=== PATIENT | female | born 1950 | race Caucasian/White ===

== ENCOUNTER → 2018-02-11 10:02 | Outpatient (CLI) | payer MEDICARE, SELFPAY ==
[2018-02-11 12:06] LABS: Absolute Lymphocyte Count 1.12 X10^3/ul (0.83-4.51); Basophil# 0.02 X10^3/uL; Basophil% 0.4 % (0-1); Eosinophil# 0.26 X10^3/uL; Eosinophils% 5.4 % (0-5); Hematocrit 38.2 % (37-47); Hemoglobin 13.3 g/dl (12.0-15.0); Lymphocyte # 1.12 X10^3/ul (4.0); Lymphocyte % 23.4 % (19-41); Mean Corp Hgb Conc 34.8 g/gl (32-36); Mean Corpuscular Hgb 34.9 pg (27.0-32.0); Mean Corpuscular Volume 100.3 fL (81-99); Monocyte# 0.33 X10^3/uL; Monocyte% 6.9 % (0-10); Neutrophil # 3.04 X10^3/uL (2.7-7.7); Neutrophil % 63.7 % (47-70); Platelet Count 199 K/mm3 (150-450); RBC Distribution Width CV 12.4 % (11.6-14.6); RBC Distribution Width SD 44.1 fl (35.1-43.9); Red Blood Count 3.81 M/mm3 (4.2-5.4); White Blood Count 4.8 K/mm3 (4.4-11.0)
[2018-02-11 12:10] LABS: POSITIVE COUNT NO; POSITIVE DIFFERENTIAL NO; POSITIVE MORPHOLOGY NO
[2018-02-11 12:24] LABS: Vitamin D,25 Hydroxy 18.4 ng/mL (29.95-100.01)
[2018-02-11 12:30] LABS: ALB/GLOB Ratio 0.9 RATIO (0.9-2.4); AST(SGOT) 46 U/L (15-37); Alanine Aminotransfer ALT/SGPT 68 U/L (13-56); Albumin, Serum 3.7 g/dL (3.2-5.0); Alkaline Phosphatase 59 U/L (45-117); Anion Gap 9 (5-15); BUN 15 mg/dL (7-18); BUN/Creat Ratio 15.9 RATIO (10-20); Calcium,Total 8.5 mg/dL (8.5-10.1); Chloride 105 mmol/L (98-107); Cholesterol 173 mg/dL (200); Creatinine, Serum 0.95 mg/dL (0.55-1.02); EST Glomerular Filtration Rate 63 mL/min (>60); Est Glom Filt Rate - Afr Amer 76 mL/min (>60); Glucose 105 mg/dL (74-106); High Density Lipoprotein 38 mg/dL; Potassium 3.9 mmol/L (3.5-5.1); Protein, Total 7.7 g/dL (6.4-8.2); Sodium Level 139 mmol/L (136-145); T4 Free Direct 0.95 ng/dL (0.76-1.46); Triglycerides 195 mg/dL; Very Low Density Lipoprotein 39 mg/dL (5-40)
== END ==
PROVIDERS: Family Provider Family Medicine; PCP Family Medicine; Visit Provider Family Medicine
DX: Z00.00 Encounter for general adult medical examination without abnormal findings (principal); I10 Essential (primary) hypertension; E03.9 Hypothyroidism, unspecified; R53.83 Other fatigue
CPT/HCPCS: 36415; 80053; 80061; 82306; 84439; 84443; 84480; 85025

== ENCOUNTER → 2018-04-29 08:39 | Outpatient (CLI) | payer MEDICARE, SELFPAY ==
[2018-04-29 10:03] LABS: T3 Total - Triiodothyronine 0.95 ng/mL (0.6-1.81)
[2018-04-29 10:04] LABS: T4 Free Direct 0.95 ng/dL (0.76-1.46)
== END ==
PROVIDERS: Family Provider Family Medicine; PCP Family Medicine; Visit Provider Family Medicine
DX: E03.9 Hypothyroidism, unspecified (principal); R94.6 Abnormal results of thyroid function studies; R94.5 Abnormal results of liver function studies
CPT/HCPCS: 36415; 84439; 84443; 84480

== ENCOUNTER → 2019-05-24 10:33 | Outpatient (CLI) | payer MEDICARE, SELFPAY ==
[2018-11-16 13:05] VITALS: BMI 44.6
[2019-05-24 12:28] LABS: Absolute Lymphocyte Count 1.28 X10^3/uL (0.83-4.51); Absolute Neutrophil Count 2.8 X10^3/uL (2.0-7.7); Basophil# 0.04 X10^3/uL; Basophil% 0.8 % (0-1); Eosinophil# 0.28 X10^3/uL; Eosinophils% 5.9 % (0-5); Hematocrit 38.8 % (37-47); Lymphocyte # 1.28 X10^3/ul (4.0); Lymphocyte % 26.9 % (19-41); Mean Corp Hgb Conc 33.5 g/dL (32-36); Mean Corpuscular Hgb 34.3 pg (27.0-32.0); Mean Corpuscular Volume 102.4 fL (81-99); Mean Platelet Vol. 10.1 fl (6.2-12.0); Monocyte# 0.31 X10^3/uL; Monocyte% 6.5 % (0-10); NRBC Flagged by Analyzer 0 % (0-5); Neutrophil # 2.83 X10^3/uL (2.7-7.7); Neutrophil % 59.7 % (47-70); Platelet Count 207 K/mm3 (150-450); RBC Distribution Width CV 12.3 % (11.6-14.6); RBC Distribution Width SD 46.3 fl (35.1-43.9); Red Blood Count 3.79 M/mm3 (4.2-5.4); White Blood Count 4.8 K/mm3 (4.4-11.0)
[2019-05-24 13:05] LABS: Vitamin D,25 Hydroxy 20.5 ng/mL (29.95-100.01)
[2019-05-24 13:07] LABS: ALB/GLOB Ratio 0.9 RATIO (0.9-2.4); AST(SGOT) 50 U/L (15-37); Alanine Aminotransfer ALT/SGPT 77 U/L (13-56); Albumin, Serum 3.5 g/dL (3.2-5.0); Alkaline Phosphatase 61 U/L (45-117); Anion Gap 6 (5-15); BUN 22 mg/dL (7-18); Calcium,Total 8.6 mg/dL (8.5-10.1); Chloride 108 mmol/L (98-107); Creatinine, Serum 0.88 mg/dL (0.55-1.02); EST Glomerular Filtration Rate 68 mL/min (>60); Est Glom Filt Rate - Afr Amer 82 mL/min (>60); Free T3 2.2 pg/mL (2.18-3.98); Globulin 3.9 g/dL (2.2-4.2); Glucose 89 mg/dL (74-106); Potassium 4.1 mmol/L (3.5-5.1); Protein, Total 7.4 g/dL (6.4-8.2); Sodium Level 143 mmol/L (136-145); T4 Free Direct 0.98 ng/dL (0.76-1.46); Thyroid Stim Hormone (TSH) 3.15 uIU/mL (0.358-3.74)
== END ==
PROVIDERS: Family Provider Family Medicine; PCP Family Medicine; Visit Provider Family Medicine
DX: E03.9 Hypothyroidism, unspecified (principal); E78.5 Hyperlipidemia, unspecified; E55.9 Vitamin D deficiency, unspecified; Z51.81 Encounter for therapeutic drug level monitoring
CPT/HCPCS: 36415; 80053; 82306; 84439; 84443; 84481; 85025

== ENCOUNTER → 2019-11-22 14:09 | Outpatient (CLI) | payer MEDICARE, SELFPAY ==
[2019-11-22 13:12] VITALS: BMI 43.9
[2019-11-22 16:09] LABS: Absolute Lymphocyte Count 1.63 X10^3/uL (0.83-4.51); Absolute Neutrophil Count 3.9 X10^3/uL (2.0-7.7); Basophil# 0.05 X10^3/uL; Basophil% 0.8 % (0-1); Eosinophil# 0.18 X10^3/uL; Eosinophils% 2.9 % (0-5); Hemoglobin 13.8 g/dL (12.0-15.0); Lymphocyte # 1.63 X10^3/ul (4.0); Lymphocyte % 26.5 % (19-41); Mean Corp Hgb Conc 33.7 g/dL (32-36); Mean Corpuscular Hgb 33.7 pg (27.0-32.0); Mean Platelet Vol. 10.1 fl (6.2-12.0); Monocyte% 6.5 % (0-10); NRBC Flagged by Analyzer 0 % (0-5); Neutrophil # 3.89 X10^3/uL (2.7-7.7); Neutrophil % 63.1 % (47-70); Platelet Count 255 K/mm3 (150-450); RBC Distribution Width CV 12.4 % (11.6-14.6); RBC Distribution Width SD 46.2 fl (35.1-43.9); White Blood Count 6.2 K/mm3 (4.4-11.0)
[2019-11-22 16:40] LABS: Anion Gap 6 (5-15); BUN 15 mg/dL (7-18); BUN/Creat Ratio 15.5 RATIO (10-20); Calcium,Total 8.9 mg/dL (8.5-10.1); Chloride 103 mmol/L (98-107); Creatinine, Serum 0.97 mg/dL (0.55-1.02); EST Glomerular Filtration Rate 61 mL/min (>60); Est Glom Filt Rate - Afr Amer 73 mL/min (>60); Glucose 92 mg/dL (74-106); Magnesium 2.2 mg/dL (1.6-2.6); Potassium 4.3 mmol/L (3.5-5.1); Sodium Level 136 mmol/L (136-145)
[2019-11-24 10:13] LABS: Free T3 2.4 pg/mL (2.18-3.98); T4 Free Direct 1.12 ng/dL (0.76-1.46); Thyroid Stim Hormone (TSH) 2.47 uIU/mL (0.358-3.74)
== END ==
PROVIDERS: PCP Family Medicine; Referring Provider Internal Medicine Cardiovascular Disease; Visit Provider Internal Medicine Cardiovascular Disease
DX: I47.1 Supraventricular tachycardia (principal); I49.1 Atrial premature depolarization; I49.3 Ventricular premature depolarization; I34.1 Nonrheumatic mitral (valve) prolapse; E78.00 Pure hypercholesterolemia, unspecified; E03.9 Hypothyroidism, unspecified; Z98.890 Other specified postprocedural states
CPT/HCPCS: 36415; 80048; 83735; 84439; 84443; 84481; 85025

== ENCOUNTER → 2019-11-23 08:52 | Outpatient (CLI) | payer OTHER, MEDICARE, SELFPAY ==
[2019-11-22 13:12] VITALS: BMI 43.9
== END ==
PROVIDERS: PCP Family Medicine; Referring Provider Internal Medicine Cardiovascular Disease; Visit Provider Internal Medicine Cardiovascular Disease
DX: I47.1 Supraventricular tachycardia (principal); I49.1 Atrial premature depolarization; I49.3 Ventricular premature depolarization; I34.1 Nonrheumatic mitral (valve) prolapse; I48.91 Unspecified atrial fibrillation; E78.00 Pure hypercholesterolemia, unspecified; Z98.890 Other specified postprocedural states
CPT/HCPCS: 93225; 93226

== ENCOUNTER → 2020-03-20 07:53 | Outpatient (CLI) | payer OTHER, MEDICARE, SELFPAY ==
[2019-11-22 13:12] VITALS: BMI 43.9
--- NOTE | 2020-03-20 07:55 | ECHOCS_ITS ---
Reason For Study: AFIB Procedure This was a 2D Doppler, Color Flow transthoracic echocardiogram. The study was technically difficult. Contrast injection was performed. Exam performed portable in patient room. Left Ventricle Normal LV size. Left ventricular systolic function is normal. The estimated ejection fraction is 60 %. Unable to assess diastolic dysfunction. No regional wall motion abnormalities noted. Right Ventricle Normal RV size. Normal systolic function. Atria The left atrium is mildly enlarged. Normal right atrium. No doppler evidence for ASD. Mitral Valve There is no mitral annular calcification. Normal mitral valve. Mild (1+) mitral valve insufficiency. Tricuspid Valve Normal tricuspid valve. Mild tricuspid valve insufficiency. Right ventricular systolic pressure estimated to be 36 mmHg. Aortic Valve Trisinus/trileaflet aortic valve. Mild focal aortic valve calcification. Mild aortic stenosis. Mild (1+) aortic valve insufficiency. Pulmonic Valve The pulmonic valve is not well visualized. Trivial pulmonic valve insufficiency. Great Vessels Normal sized aortic root. Pericardium/Pleural No pericardial effusion. Medication Diluted definity 2.0ml given slow IV push to enhance endocardial definition. MMode/2D Measurements & Calculations LVIDd: 4.5 cm IVSd: 1.1 cm LVOT diam: 2.0 cm LVIDs: 3.1 cm LVPWd: 1.0 cm RVDd: 4.2 cm FS: 29.8 % LVOT area: 3.0 cm2 Ao root diam: 3.5 cm LAV(MOD-bp): 51.8 ml EDV(MOD-sp4): 142.9 ml LAV(MOD-bp) Indexed: 22.6 ml/m2 ESV(MOD-sp4): 52.7 ml LAV(MOD-sp2): 46.6 ml EF(MOD-sp4): 63.1 % LAV(MOD-sp4): 55.5 ml EDV(MOD-sp2): 126.0 ml SV(MOD-sp4): 90.2 ml SV(MOD-sp2): 57.9 ml EF(MOD-sp2): 45.9 % LA dimension(2D): 4.6 cm LA A4 area: 19.2 cm2 RA A4 area: 12.2 cm2 Time Measurements MV dec time: 0.23 sec Doppler Measurements & Calculations MV E max annabella: 136.4 cm/sec Ao V2 max: 211.9 cm/sec AI max annabella: 367.2 cm/sec Ao max P.0 mmHg AI max P.9 mmHg Ao V2 mean: 155.6 cm/sec AI dec slope: 178.0 cm/sec2 Ao mean P.5 mmHg AI P1/2t: 604.3 msec Ao V2 VTI: 46.7 cm GENNARO(I,D): 1.5 cm2 GENNARO(V,D): 1.4 cm2 LV V1 max: 100.6 cm/sec SV(LVOT): 69.2 ml PA V2 max: 106.7 cm/sec LV V1 max P.1 mmHg LV V1 mean P.4 mmHg LV V1 mean: 73.6 cm/sec LV V1 VTI: 23.0 cm TR max annabella: 286.9 cm/sec TR max P.0 mmHg Interpretation Summary The study was technically difficult. Contrast injection was performed. Left ventricular systolic function is normal. The estimated ejection fraction is 60 %. The left atrium is mildly enlarged. Mild (1+) mitral valve insufficiency. Mild tricuspid valve insufficiency. Mild aortic stenosis. Mild (1+) aortic valve insufficiency. Trivial pulmonic valve insufficiency. Right ventricular systolic pressure estimated to be 36 mmHg. Unable to assess diastolic dysfunction. Ordering Physician: Mack Garcia Referring Physician: DR ULYSSES JAMESON Performed By: Radha Holguin, LITTLECS, RVT
== END ==
PROVIDERS: PCP Family Medicine; Referring Provider Internal Medicine Cardiovascular Disease; Visit Provider Internal Medicine Cardiovascular Disease
DX: I48.91 Unspecified atrial fibrillation (principal); I48.92 Unspecified atrial flutter; I47.1 Supraventricular tachycardia; I49.1 Atrial premature depolarization; I49.3 Ventricular premature depolarization; I34.1 Nonrheumatic mitral (valve) prolapse; E78.00 Pure hypercholesterolemia, unspecified; Z98.890 Other specified postprocedural states
CPT/HCPCS: 93306; Q9957; A4216; C8929

== ENCOUNTER 2020-05-30 10:40 | Day surgery (SDC) | payer MEDICARE, SELFPAY ==
--- NOTE | 2020-05-16 01:54 | HP_ITS ---
HPI HPI History of Present Illness Surgical H&P: Yes Details: DAE LORD, is a 69 year old white female who presents to the office today for outpatient cardiovascular follow up of her history of cardiac ectopy/dysrhythmia status post previous PSVT EPS/RFA. Pts 30 day event monitor did demonstrate Atrial fib. She did have some pauses noted. They were all less than 4 seconds. She does note since she was her last that she feels more tired. She does have an increase in dizziness, she notes that this is when she stands for long periods of times and with positional changes. This does occur frequently and is only a few seconds. She does not have any chest pain. She does have an increase in SOB with exertion. She does not feel that she can walk as far as what she did. But then other days are good. She does not have any edema. She does not have any syncope. She does occasionally feel palpitations. Intake Vital Signs 05/16/20 Height 5 ft 6 in 05/16/20 Weight: 271 lb 05/16/20 BP 104/67 05/16/20 Blood Pressure Location Lt brachial 05/16/20 Position Sitting 05/16/20 Respiration 18 05/16/20 Pulse 80 05/16/20 Pulse Source Monitor 05/16/20 Pulse Oximetry (%) 95 Intake Visit Reasons: Update H & P Windows Security Analyst Required: No Is patient in pain?: No Allergies Penicillins Allergy (Verified 05/16/20 09:08) Unknown cephalexin [From Keflex] Adverse Reaction (Severe, Verified 05/16/20 09:08) Unknown clarithromycin [From Biaxin] Adverse Reaction (Severe, Verified 05/16/20 09:08) Unknown erythromycin base Adverse Reaction (Severe, Verified 05/16/20 09:08) Unknown pravastatin [From Pravachol] Adverse Reaction (Severe, Verified 05/16/20 09:08) Unknown simvastatin Adverse Reaction (Severe, Verified 05/16/20 09:08) Unknown Anesthetics - Amide Type Adverse Reaction (Verified 05/16/20 09:08) Other Anesthetics - Faby Type- Parabens [Anesthetics - Faby Type] Adverse Reaction (Verified 05/16/20 09:08) Other codeine Adverse Reaction (Verified 05/16/20 09:08) Nausea/Vom/Diarrhea morphine Adverse Reaction (Verified 05/16/20 09:08) Nausea/Vom/Diarrhea Medications estradiol 0.1 mg/24 hr semiweekly transdermal patch 1 patch TRANSDERMAL 2XW 11/13/17 [History Confirmed 05/16/20] rosuvastatin 5 mg tablet 5 mg PO QDAY tab 11/17/17 [History Confirmed 05/16/20] levothyroxine 137 mcg tablet 137 mcg PO DAILY 11/16/18 [History Confirmed 05/16/20] apixaban 5 mg tablet 5 mg PO BID #60 tab 11/26/19 [Rx Confirmed 05/16/20] fluoxetine 40 mg capsule 40 mg PO DAILY 04/12/20 [History Confirmed 05/16/20] metoprolol succinate 25 mg tablet,extended release 24 hr 12.5 mg PO DAILY #90 tab 04/27/20 [Rx Confirmed 05/16/20] estradiol 0.1 mg/24 hr semiweekly transdermal patch 1 patch TRANSDERMAL 2XW 05/16/20 [History Confirmed 05/16/20] PFSH Social History (Updated 05/16/20 @ 13:54 by PA. COLEMAN Jennings) Smoking Status: Former smoker alcohol intake: never substance use type: does not use ROS Const Const: Positive for fatigue; negative for weakness, fever(s) or headache(s) Eyes Eyes: Negative for blind spots, loss of peripheral vision or transient loss of vision ENT ENT: Negative for headache(s), dizziness, tinnitus or Nosebleed/epistaxis Cardio Chest Pain: No Palpitations: Yes Edema: None Muscle aches with walking: None Resp Respiratory: Positive for SOB with activity; negative for SOB at rest, SOB orthopnea\SOB lying down or Cough GI GI: Negative nausea, vomiting, heartburn or vomiting blood/hematemesis : Negative for hematuria Musc Musc: Negative for muscle aches/ myalgia Neuro Neuro: Negative for dizziness, lightheadedness, near syncope, syncope, orthostatic symptoms, headache(s) or weakness Manas Hematologic/Lymphatic: Negative for easy bleeding Endo Endo: Positive for fatigue Cardiology Exam Const Appearance: cooperative, comfortable, no acute distress and well developed Nutritional Appearance: obese Orientation: alert, awake and oriented x3 Head Head: normal to inspection, normocephalic and atraumatic Ears: hearing grossly normal bilaterally Nose: external nose normal Face and Sinus: face symmetric Mouth: moist mucous membranes Teeth and gingiva: fair dentition Eyes Eyelids: eyelids normal Conjunctivae: conjunctivae normal Pupils: PERRL EOM: EOM intact bilaterally Neck Neck: normal visual inspection, full ROM and no JVD Carotids: normal carotid upstroke; negative bruit Neck Mass: Negative Neck mass Chest Chest inspection: normal inspection of the chest, symmetric chest movement and normal respiratory effort Auscultation: Bilateral: Clear to Auscultation Cardio Palpation: normal PMI Rate: regular rate Rhythm: irregular rhythm Heart sounds: S1 normal, S2 normal and positive S4; negative rub, gallop or murmur GI GI: obese Neuro General: alert, awake, oriented x3 and moves all extremities Skin Skin: no rashes or lesions noted Extremities Pulses: Normal: Right Posterior Tibial Pulse, Left Posterior Tibial Pulse, Right Radial Pulse, Left Radial Pulse Lower Extremity Edema: None: Bilateral Psych Psychological: normal affect Assessment & Plan Problems 1. Persistent atrial fibrillation I48.19 2. PSVT (paroxysmal supraventricular tachycardia) I47.1 s/p RFA Plan Do feel that patient is symptomatic with her atrial fibrillation. I am concerned about her lightheaded and dizziness. She did have pauses noted on her 30-day event monitor. Did discuss with her that in the future she may require a pacemaker. For now we will proceed with a cardioversion that is scheduled for May [address] Garcia. Instructions were given to her. She is agreeable to proceed with this. If she returns to atrial fibrillation will then continue consider an antiarrhythmic. Patient Instructions Your cardioversion is scheduled for 05/30 with an arrival time of 1100 and procedure time of 1230. 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 Nothing to eat or drink after midnight. Take eliquis, levothyroxine and metoprolol. Orders Orders: 12 Lead EKG performed by [facility]MS Today I48.0 Basic Metabolic Profile (BMP) Today I48.19 Chest PA and Lateral Today I48.19 Plan Detail Follow Up 3 Months (MMM) 05/16/20 (will need EKG 1 week after cardioversion on 05/30) Coding Level of Care Code Off vis,est,level 4 Diagnoses Persistent atrial fibrillation I48.19 PSVT (paroxysmal supraventricular tachycardia) I47.1 Coding Level of Care Code Off vis,est,level 4 Diagnoses Persistent atrial fibrillation I48.19 PSVT (paroxysmal supraventricular tachycardia) I47.1 Supplemental Info Supplemental Information Transthoracic echocardiogram: 03/2020 Left ventricular systolic function is normal. The estimated ejection fraction is 60 %. The left atrium is mildly enlarged. Mild (1+) mitral valve insufficiency. Mild tricuspid valve insufficiency. Mild aortic stenosis. Mild (1+) aortic valve insufficiency. Trivial pulmonic valve insufficiency. Right ventricular systolic pressure estimated to be 36 mmHg. Unable to assess diastolic dysfunction. EXERCISE TOLERANCE TEST: 06/14/14 The patient exercised on a Remington protocol for 4 minutes 30 seconds completing stage 1 and 1 minute and 30 seconds of stage 2 achieving a peak heart rate of 137 beats per minute (87% predicted maximum heart rate) with a peak blood pressure of 174/78 mmHg. The peak MET capacity was approximately 6 METS. The baseline ECG demonstrated normal sinus rhythm. The peak exercise ECG demonstrated no obvious ECG changes. There was an occasional PAC during recovery. There was an occasional PVC during exercise. There was an isolated ventricular couplet during exercise. The functional capacity was considered decreased. There was no complaint of chest discomfort during exercise or recovery. The examination was discontinued secondary to dyspnea. IMPRESSION: 1. Technically adequate (percent predicted maximum heart rate greater than 85%) exercise tolerance test. 2. Peak exercise ECG with no obvious ECG changes. 3. Occasional PAC during recovery. 4. Occasional PVC during exercise. 5. Isolated ventricular couplet during exercise. 6. Nuclear images pending. MYOCARDIAL PERFUSION IMAGING STUDY: TECHNIQUE: The patient was injected with 14.9 mCi of Tc99m Cardiolite and subsequently rest SPECT Cardiolite nuclear imaging was obtained in the horizontal long, vertical long, and short axes views. The patient exercised on a Remington protocol for 4 minutes and 30 seconds achieving a peak heart rate of 137 beats per minute (87% predicted maximum heart rate) and a peak blood pressure of 174/78 mmHg and a peak MET capacity of 6 METS. The patient was injected with 44.7 mCi of Tc99m Cardiolite and subsequently stress SPECT Cardiolite nuclear imaging was obtained in the horizontal long, vertical long, and short axes views. A gated Cardiolite study at peak stress was obtained. INTERPRETATION: Rest and stress SPECT Cardiolite nuclear imaging both demonstrate areas of extracardiac/hepatic and gastrointestinal tracer uptake noted near the inferior segments. This appears to feature more prominently on the resting views as opposed to the stress views. Both images demonstrate an area of diminished tracer uptake near the lateral apical segments without significant change. There are similar type findings on the resting and stress polar map images. There is notation of end systolic thickening and brightening. The gated Cardiolite study demonstrates myocardial thickening and inward wall motion. The reported LVEF was 77%. The aforementioned changes appear compatible with the effects of physiologic apical thinning with no myocardial perfusion changes considered diagnostic for stress induced myocardial ischemia or previous myocardial injury/infarction. IMPRESSION: 1. Rest and stress SPECT Cardiolite nuclear imaging demonstrate myocardial perfusion changes appearing compatible with the effects of physiologic apical thinning with no myocardial perfusion changes considered diagnostic for stress induced myocardial ischemia or previous myocardial injury/infarction. 2. The gated Cardiolite study reports an LVEF of 77%. Labs LDL Cholesterol 96 mg/dL (0-130) 02/11/18 HDL Cholesterol 38 mg/dL (40-) L 02/11/18 Triglycerides 195 mg/dL (-199) 02/11/18 VLDL Cholesterol 39 mg/dL (5-40) 02/11/18 Diagnostics Electrocardiogram 05/16/20 Echocardiogram 03/20/20 Chest X-Ray 05/16/20 COVID (Procedure Consent) Procedure Criteria Procedure Criteria: Yes Elective The surgeon/proceduralist and patient have discussed in detail the risk of exposure to and/or potential harm posed by the COVID-19 virus with having a surgery/procedure at this time versus the risk of? delaying the surgery/procedure. It is not possible to know either the risk of delaying the surgery or procedure or chance of getting an infection with perfect accuracy, but a joint decision was made between the patient and the surgeon/proceduralist ?to proceed at this time with the scheduled surgery/procedure as indicated on the consent form. 05/16/20 1354 <Electronically signed by Gladys Marroquin> Date _ Gladys CEE
[2020-05-16 09:08] VITALS: BMI 43.7
--- NOTE | 2020-05-16 10:09 | RAD_ITS ---
STUDY: X-RAY CHEST REASON FOR EXAM: Female, 69 years old. afib, pre cardioversion next week -- some SOB TECHNIQUE: Frontal and lateral views COMPARISON: 06/01/2014. FINDINGS: The lungs are clear and expanded. There is no demonstrated pleural abnormality. Normal size heart. Normal mediastinum and alma. Normal visualized pulmonary arteries. Normal visualized aortic arch and descending thoracic aorta. Degenerative changes of the thoracic spine. Normal visualized ribs, clavicles, and shoulders. There is no demonstrated abnormality of the visualized soft tissue structures of the upper abdomen. RAD/Chest PA and Lateral IMPRESSION: Normal x-ray examination of the chest. Electronically Signed: Steve Llanes DO at 17:42 EDT Tel [phone], Service support ,
[2020-05-16 11:24] LABS: Anion Gap 4 (5-15); BUN 16 mg/dL (7-18); BUN/Creat Ratio 14.8 RATIO (10-20); Chloride 103 mmol/L (98-107); Creatinine, Serum 1.08 mg/dL (0.55-1.02); EST Glomerular Filtration Rate 53 mL/min (>60); Est Glom Filt Rate - Afr Amer 65 mL/min (>60); Glucose 94 mg/dL (74-106); Sodium Level 135 mmol/L (136-145)
[2020-05-29 07:17] VITALS: BMI 43.7
--- NOTE | 2020-05-30 08:28 | HP.PCM_ITS ---
Problem List (1) Atrial fibrillation Status: Acute History and Physical Date of Admission: 05/30/20 [facility] [address] [place], [place] [address] OFFICE VISIT Date of Service: 05/16/20 MR#: [id number] Acct: [id number] Name: DAE LORD Rep #: [id number] : 1950 Provider: COLEMAN Gale Age/Sex: 69/F Location: [facility] Status: Signed with Addenda ADDENDUM by COLEMAN Gale on 05/17/20 at 1646 Addendum entered and electronically signed by COLEMAN Jennings 05/17/20 16:46: Reviewed with Dr. Garcia. Will stop metoprolol. Pt notified. She will let us know if her dizziness worsens prior to her cardiov ersion. Assessment & Plan Problems 1. Persistent atrial fibrillation I48.19 2. PSVT (paroxysmal supraventricular tachycardia) I47.1 s/p RFA Plan - COLEMAN. COLEMAN Jennings Do feel that patient is symptomatic with her atrial fibrillation. I am concerned about her lightheaded and dizziness. She did have pauses noted on her 30-day event monitor. Did discuss with her that in the future she may require a pacemaker. For now we will proceed with a cardioversion that is scheduled for May [address] Garcia. Instructions were given to her. She is agreeable to proceed with this. If she returns to atrial fibrillation will then continue consider an antiarrhythmic. Patient Instructions - COLEMAN. COLEMAN Jennings Your cardioversion is scheduled for 05/30 with an arrival time of 1100 and procedure time of 1230. You will need a lease purchase driver this day. Nothing to eat or drink after midnight. Take eliquis, levothyroxine and metoprolol. Orders Orders: 12 Lead EKG performed by [facility] 05/16/20 I48.0 Basic Metabolic Profile (BMP) 05/16/20 I48.19 Chest PA and Lateral 05/16/20 I48.19 Medications Discontinued: metoprolol succinate ER Discontinued Reason: Order Completed 12.5 mg (1/2 x 25 mg) PO DAILY 90 tabs 3RF Plan Detail Follow Up 3 Months (MMM) 05/16/20 (will need EKG 1 week after cardioversion on 05/30) 05/17/20 1646 <Electronically signed by Gladys Marroquin> Date _ Gladys Gale cc: Dr. Barbara Shook, DO ~* Signed HPI HPI History of Present Illness Surgical H&P: Yes Details: DAE LORD, is a 69 year old white female who presents to the office today for outpatient cardiovascular follow up of her history of cardiac ectopy/dysrhythmia status post previous PSVT EPS/RFA. Pts 30 day event monitor did demonstrate Atrial fib. She did have some pauses noted. They were all less than 4 seconds. She does note since she was her last that she feels more tired. She does have an increase in dizziness, she notes that this is when she stands for long periods of times and with positional changes. This does occur frequently and is only a few seconds. She does not have any chest pain. She does have an increase in SOB with exertion. She does not feel that she can walk as far as what she did. But then other days are good. She does not have any edema. She does not have any syncope. She does occasionally feel palpitations. Intake Vital Signs 05/16/20 Height 5 ft 6 in 05/16/20 Weight: 271 lb 05/16/20 BP 104/67 05/16/20 Blood Pressure Location Lt brachial 05/16/20 Position Sitting 05/16/20 Respiration 18 05/16/20 Pulse 80 05/16/20 Pulse Source Monitor 05/16/20 Pulse Oximetry (%) 95 Intake Visit Reasons: Update H & P Membership Sales Manager Required: No Is patient in pain?: No Allergies Penicillins Allergy (Verified 05/16/20 09:08) Unknown cephalexin [From Keflex] Adverse Reaction (Severe, Verified 05/16/20 09:08) Unknown clarithromycin [From Biaxin] Adverse Reaction (Severe, Verified 05/16/20 09:08) Unknown erythromycin base Adverse Reaction (Severe, Verified 05/16/20 09:08) Unknown pravastatin [From Pravachol] Adverse Reaction (Severe, Verified 05/16/20 09:08) Unknown simvastatin Adverse Reaction (Severe, Verified 05/16/20 09:08) Unknown Anesthetics - Amide Type Adverse Reaction (Verified 05/16/20 09:08) Other Anesthetics - Faby Type- Parabens [Anesthetics - Faby Type] Adverse Reaction (Verified 05/16/20 09:08) Other codeine Adverse Reaction (Verified 05/16/20 09:08) Nausea/Vom/Diarrhea morphine Adverse Reaction (Verified 05/16/20 09:08) Nausea/Vom/Diarrhea Medications estradiol 0.1 mg/24 hr semiweekly transdermal patch 1 patch TRANSDERMAL 2XW 11/13/17 [History Confirmed 05/16/20] rosuvastatin 5 mg tablet 5 mg PO QDAY tab 11/17/17 [History Confirmed 05/16/20] levothyroxine 137 mcg tablet 137 mcg PO DAILY 11/16/18 [History Confirmed 05/16/20] apixaban 5 mg tablet 5 mg PO BID #60 tab 11/26/19 [Rx Confirmed 05/16/20] fluoxetine 40 mg capsule 40 mg PO DAILY 04/12/20 [History Confirmed 05/16/20] metoprolol succinate 25 mg tablet,extended release 24 hr 12.5 mg PO DAILY #90 tab 04/27/20 [Rx Confirmed 05/16/20] estradiol 0.1 mg/24 hr semiweekly transdermal patch 1 patch TRANSDERMAL 2XW 05/16/20 [History Confirmed 05/16/20] PFSH Social History (Updated 05/16/20 @ 13:54 by COLEMAN Estrada) Smoking Status: Former smoker alcohol intake: never substance use type: does not use ROS Const Const: Positive for fatigue; negative for weakness, fever(s) or headache(s) Eyes Eyes: Negative for blind spots, loss of peripheral vision or transient loss of vision ENT ENT: Negative for headache(s), dizziness, tinnitus or Nosebleed/epistaxis Cardio Chest Pain: No Palpitations: Yes Edema: None Muscle aches with walking: None Resp Respiratory: Positive for SOB with activity; negative for SOB at rest, SOB orthopnea\SOB lying down or Cough GI GI: Negative nausea, vomiting, heartburn or vomiting blood/hematemesis : Negative for hematuria Musc Musc: Negative for muscle aches/ myalgia Neuro Neuro: Negative for dizziness, lightheadedness, near syncope, syncope, orthostatic symptoms, headache(s) or weakness Manas Hematologic/Lymphatic: Negative for easy bleeding Endo Endo: Positive for fatigue Cardiology Exam Const Appearance: cooperative, comfortable, no acute distress and well developed Nutritional Appearance: obese Orientation: alert, awake and oriented x3 Head Head: normal to inspection, normocephalic and atraumatic Ears: hearing grossly normal bilaterally Nose: external nose normal Face and Sinus: face symmetric Mouth: moist mucous membranes Teeth and gingiva: fair dentition Eyes Eyelids: eyelids normal Conjunctivae: conjunctivae normal Pupils: PERRL EOM: EOM intact bilaterally Neck Neck: normal visual inspection, full ROM and no JVD Carotids: normal carotid upstroke; negative bruit Neck Mass: Negative Neck mass Chest Chest inspection: normal inspection of the chest, symmetric chest movement and normal respiratory effort Auscultation: Bilateral: Clear to Auscultation Cardio Palpation: normal PMI Rate: regular rate Rhythm: irregular rhythm Heart sounds: S1 normal, S2 normal and positive S4; negative rub, gallop or murmur GI GI: obese Neuro General: alert, awake, oriented x3 and moves all extremities Skin Skin: no rashes or lesions noted Extremities Pulses: Normal: Right Posterior Tibial Pulse, Left Posterior Tibial Pulse, Right Radial Pulse, Left Radial Pulse Lower Extremity Edema: None: Bilateral Psych Psychological: normal affect Assessment & Plan Problems 1. Persistent atrial fibrillation I48.19 2. PSVT (paroxysmal supraventricular tachycardia) I47.1 s/p RFA Plan Do feel that patient is symptomatic with her atrial fibrillation. I am concerned about her lightheaded and dizziness. She did have pauses noted on her 30-day event monitor. Did discuss with her that in the future she may require a pacemaker. For now we will proceed with a cardioversion that is scheduled for May [address] Garcia. Instructions were given to her. She is agreeable to proceed with this. If she returns to atrial fibrillation will then continue consider an antiarrhythmic. Patient Instructions Your cardioversion is scheduled for 05/30 with an arrival time of 1100 and procedure time of 1230. You will need a lease purchase driver this day. Nothing to eat or drink after midnight. Take eliquis, levothyroxine and metoprolol. Orders Orders: 12 Lead EKG performed by [facility] Today I48.0 Basic Metabolic Profile (BMP) Today I48.19 Chest PA and Lateral Today I48.19 Plan Detail Follow Up 3 Months (MMM) 05/16/20 (will need EKG 1 week after cardioversion on 05/30) Coding Level of Care Code Off vis,est,level 4 Diagnoses Persistent atrial fibrillation I48.19 PSVT (paroxysmal supraventricular tachycardia) I47.1 Coding Level of Care Code Off vis,est,level 4 Diagnoses Persistent atrial fibrillation I48.19 PSVT (paroxysmal supraventricular tachycardia) I47.1 Supplemental Info Supplemental Information Transthoracic echocardiogram: 03/2020 Left ventricular systolic function is normal. The estimated ejection fraction is 60 %. The left atrium is mildly enlarged. Mild (1+) mitral valve insufficiency. Mild tricuspid valve insufficiency. Mild aortic stenosis. Mild (1+) aortic valve insufficiency. Trivial pulmonic valve insufficiency. Right ventricular systolic pressure estimated to be 36 mmHg. Unable to assess diastolic dysfunction. EXERCISE TOLERANCE TEST: 06/14/14 The patient exercised on a Remington protocol for 4 minutes 30 seconds completing stage 1 and 1 minute and 30 seconds of stage 2 achieving a peak heart rate of 137 beats per minute (87% predicted maximum heart rate) with a peak blood pressure of 174/78 mmHg. The peak MET capacity was approximately 6 METS. The baseline ECG demonstrated normal sinus rhythm. The peak exercise ECG demonstrated no obvious ECG changes. There was an occasional PAC during recovery. There was an occasional PVC during exercise. There was an isolated ventricular couplet during exercise. The functional capacity was considered decreased. There was no complaint of chest discomfort during exercise or recovery. The examination was discontinued secondary to dyspnea. IMPRESSION: 1. Technically adequate (percent predicted maximum heart rate greater than 85%) exercise tolerance test. 2. Peak exercise ECG with no obvious ECG changes. 3. Occasional PAC during recovery. 4. Occasional PVC during exercise. 5. Isolated ventricular couplet during exercise. 6. Nuclear images pending. MYOCARDIAL PERFUSION IMAGING STUDY: TECHNIQUE: The patient was injected with 14.9 mCi of Tc99m Cardiolite and subsequently rest SPECT Cardiolite nuclear imaging was obtained in the horizontal long, vertical long, and short axes views. The patient exercised on a Remington protocol for 4 minutes and 30 seconds achieving a peak heart rate of 137 beats per minute (87% predicted maximum heart rate) and a peak blood pressure of 174/78 mmHg and a peak MET capacity of 6 METS. The patient was injected with 44.7 mCi of Tc99m Cardiolite and subsequently stress SPECT Cardiolite nuclear imaging was obtained in the horizontal long, vertical long, and short axes views. A gated Cardiolite study at peak stress was obtained. INTERPRETATION: Rest and stress SPECT Cardiolite nuclear imaging both demonstrate areas of extracardiac/hepatic and gastrointestinal tracer uptake noted near the inferior segments. This appears to feature more prominently on the resting views as opposed to the stress views. Both images demonstrate an area of diminished tracer uptake near the lateral apical segments without significant change. There are similar type findings on the resting and stress polar map images. There is notation of end systolic thickening and brightening. The gated Cardiolite study demonstrates myocardial thickening and inward wall motion. The reported LVEF was 77%. The aforementioned changes appear compatible with the effects of physiologic apical thinning with no myocardial perfusion changes considered diagnostic for stress induced myocardial ischemia or previous myocardial injury/infarction. IMPRESSION: 1. Rest and stress SPECT Cardiolite nuclear imaging demonstrate myocardial perfusion changes appearing compatible with the effects of physiologic apical thinning with no myocardial perfusion changes considered diagnostic for stress induced myocardial ischemia or previous myocardial injury/infarction. 2. The gated Cardiolite study reports an LVEF of 77%. Labs LDL Cholesterol 96 mg/dL (0-130) 02/11/18 HDL Cholesterol 38 mg/dL (40-) L 02/11/18 Triglycerides 195 mg/dL (-199) 02/11/18 VLDL Cholesterol 39 mg/dL (5-40) 02/11/18 Diagnostics Electrocardiogram 05/16/20 Echocardiogram 03/20/20 Chest X-Ray 05/16/20 COVID (Procedure Consent) Procedure Criteria Procedure Criteria: Yes Elective The surgeon/proceduralist and patient have dis cussed in detail the risk of exposure to and/or potential harm posed by the COVID-19 virus with having a surgery/procedure at this time versus the risk of? delaying the surgery/procedure. It is not possible to know either the risk of delaying the surgery or procedure or chance of getting an infection with perfect accuracy, but a joint decision was made between the patient and the surgeon/proceduralist ?to proceed at this time with the scheduled surgery/procedure as indicated on the consent form. 05/16/20 5554 <Electronically signed by Gladys Marroquin> Date _ Gladys Sherman Signature: Date (if applicable) CC: Dr. Barbara Shook, DO ~ Addendum: I have re-examined the patient. There are no clinical changes since date of exam.
--- NOTE | 2020-05-30 12:31 | CARDIOVERS ---
Cardioversion Cardioversion: Date: 05-30-2020 Procedure: Synchronized Biphasic DC Cardioversion Indications: Atrial fibrillation Consent: Per the Patient Anesthesia: per Dr. Thompson of pulmonology and critical care medicine with propofol 80 mg IV push total Procedure: Synchronized Biphasic DC Cardioversion: 200 J x1: Result: Atrial fibrillation Synchronized Biphasic DC cardioversion: 300 J x1: Result: Atrial fibrillation Synchronized Biphasic DC cardioversion: 360 J x1: Result: Atrial fibrillation Complications: no apparent complications This note was generated with [employer] software. It may contain incorrect words, spelling, and punctuation that were not noted in checking the note before signing.
--- NOTE | 2020-05-30 14:06 | PRO.PCM_ITS ---
Problem List (1) Atrial fibrillation Status: Acute (2) Ectopic atrial tachycardia Status: Acute (3) Paroxysmal atrial fibrillation Status: Chronic (4) Pure hypercholesterolemia Status: Chronic (5) History of cardiac radiofrequency ablation Status: Resolved Comment: For SVT (6) PSVT (paroxysmal supraventricular tachycardia) Status: Resolved Comment: s/p RFA Procedure Report Date of Procedure: 05/30/20 - Conscious sedation CONSCIOUS SEDATION REPORT BRIEF HISTORY OF PRESENT ILLNESS: The patient is a 69-year-old female who presented to [facility] for an elective outpatient cardioversion due to underlying atrial fibrillation. The patient reports no PO intake since midnight. The patient does not have a history of obstructive sleep apnea. The patient reports a history of smoking, but denies COPD. The patient denies any recent constitutional symptoms such as fevers, chills, nausea or vomiting. The patient denies previous anesthetic complications. Patient's last known ejection fraction was 60%. Patient did take anticoagulation on the day of procedure. PHYSICAL EXAMINATION: VITAL SIGNS: Reviewed and were acceptable. GENERAL: The patient is a female, in no apparent distress, speaking in full sentences. HEENT: Normocephalic, atraumatic. Mucous membranes are moist and pink. Good mouth opening noted. Trachea is midline. Good neck mobility. MP IV CHEST: S1, S2 irregularly irregular. No murmurs, rubs or gallops were noted. LUNGS: Clear to auscultation bilaterally without appreciable wheezes, rales or rhonchi. ABDOMEN: Soft, nontender, nondistended. Positive bowel sounds. EXTREMITIES: There is no clubbing, cyanosis or edema. ASA Class: II DESCRIPTION OF PROCEDURE: After confirmation of informed consent, the patient's anesthesia plan was reviewed in detail. Propofol was chosen. Risks and benefits were reviewed and the patient agreed to proceed. At 12:06 PM, the patient was given 40 mg of propofol. The patient required a total of 80 mg of propofol throughout the procedure to achieve appropriate sedation. The patient achieved an appropriate level of sedation and received 3 attempts synchronized cardioversion, at 200 J, 300 J and [address] Garcia at the bedside. This was unsuccessful in achieving normal sinus rhythm. The patient was monitored until 12:20 PM, at which time the patient reached their baseline mental status and function. The patient tolerated the procedure well. COMPLICATIONS: None ESTIMATED BLOOD LOSS: None RECOMMENDATIONS: Okay to recover in usual fashion. [id number]: Other Procedure See Report - [id number] - 14 minutes
== END 2020-05-30 13:10 | disposition home or self-care (01) ==
LOC: CLSP 10:43
PROVIDERS: Physician Assistant Medical; PCP Family Medicine; Referring Provider Internal Medicine Cardiovascular Disease; Visit Provider Internal Medicine Cardiovascular Disease
DX: I48.19 Other persistent atrial fibrillation (principal); I47.1 Supraventricular tachycardia; E78.00 Pure hypercholesterolemia, unspecified; Z79.01 Long term (current) use of anticoagulants; Z79.899 Other long term (current) drug therapy; Z87.891 Personal history of nicotine dependence
CPT/HCPCS: 36415; 71046; 80048; 92960; 93005; J7040

== ENCOUNTER → 2020-10-05 07:49 | Outpatient (CLI) | payer MEDICARE, SELFPAY ==
[2020-09-27 14:00] VITALS: BMI 43.0
--- NOTE | 2020-10-05 07:50 | ECHOCS_ITS ---
Reason For Study: AFIB Procedure This was a 2D Doppler, Color Flow transthoracic echocardiogram. The study was technically difficult. Contrast injection was performed. Exam performed in department. Left Ventricle Normal LV size. Left ventricular systolic function is normal. The estimated ejection fraction is 60 %. Diastolic function is indeterminate. No regional wall motion abnormalities noted. Right Ventricle Normal RV size. Normal systolic function. Atria Normal left atrium. Normal right atrium. No doppler evidence for ASD. Mitral Valve There is no mitral annular calcification. Normal mitral valve. Trivial mitral valve insufficiency. Tricuspid Valve Normal tricuspid valve. Trivial tricuspid valve insufficiency. Right ventricular systolic pressure estimated to be 27 mmHg. Aortic Valve Trisinus/trileaflet aortic valve. Mild focal aortic valve calcification. Mild aortic stenosis. Mild (1+) aortic valve insufficiency. Pulmonic Valve The pulmonic valve is not well visualized. Great Vessels Normal sized aortic root. Pericardium/Pleural No pericardial effusion. Medication 22 gauge I.V. with prn adaptor inserted into right arm. Diluted definity 4.0ml given slow IV push to enhance endocardial definition. MMode/2D Measurements & Calculations LVIDd: 4.3 cm IVSd: 1.1 cm Ao root diam: 3.8 cm LVIDs: 2.8 cm LVPWd: 1.1 cm RVDd: 3.6 cm FS: 34.6 % LAV(MOD-bp): 53.3 ml LVAd ap4: 30.4 cm2 SV(MOD-sp4): 52.1 ml LAV(MOD-bp) Indexed: 23.6 ml/m2 EDV(MOD-sp4): 90.9 ml LAV(MOD-sp2): 65.4 ml EDV(sp4-el): 96.3 ml LAV(MOD-sp4): 43.4 ml LVAs ap4: 18.3 cm2 ESV(MOD-sp4): 38.8 ml ESV(sp4-el): 41.4 ml EF(MOD-sp4): 57.3 % EF(sp4-el): 57.0 % SV(sp4-el): 54.8 ml LA A4 area: 17.6 cm2 LA dimension(2D): 4.3 cm RA A4 area: 15.8 cm2 Time Measurements MV dec time: 0.28 sec Doppler Measurements & Calculations MV E max nilson: 85.4 cm/sec Med Peak E' Nilson: 4.4 cm/sec Ao V2 max: 234.7 cm/sec MV A max nilson: 76.3 cm/sec E/E' med: 19.5 Ao max P.0 mmHg MV E/A: 1.1 Ao V2 mean: 179.0 cm/sec Ao mean P.8 mmHg Ao V2 VTI: 55.7 cm AI max nilson: 372.7 cm/sec LV V1 max: 109.2 cm/sec PA V2 max: 115.4 cm/sec AI max P.6 mmHg LV V1 max P.8 mmHg AI dec slope: 184.6 cm/sec2 LV V1 mean P.8 mmHg AI P1/2t: 591.4 msec LV V1 mean: 80.7 cm/sec LV V1 VTI: 27.3 cm TR max nilson: 242.1 cm/sec TR max P.6 mmHg Interpretation Summary The study was technically difficult. Contrast injection was performed. Left ventricular systolic function is normal. The estimated ejection fraction is 60 %. Trivial mitral valve insufficiency. Trivial tricuspid valve insufficiency. Mild aortic stenosis. Mild (1+) aortic valve insufficiency. Right ventricular systolic pressure estimated to be 27 mmHg. Diastolic function is indeterminate. Ordering Physician: Gladys Gale Referring Physician: ULYSSES JAMESON Performed By: Radha Holguin RDCS, RVT
== END ==
PROVIDERS: PCP Family Medicine; Referring Provider Physician Assistant Medical; Visit Provider Physician Assistant Medical
DX: I48.0 Paroxysmal atrial fibrillation (principal); I48.92 Unspecified atrial flutter; I47.1 Supraventricular tachycardia; I34.1 Nonrheumatic mitral (valve) prolapse; Z98.890 Other specified postprocedural states
CPT/HCPCS: 93306; Q9957; A4216; C8929

== ENCOUNTER → 2020-12-06 10:31 | Outpatient (CLI) | payer MEDICARE, SELFPAY ==
[2020-09-27 14:00] VITALS: BMI 43.0
[2020-12-06 12:22] LABS: Absolute Lymphocyte Count 1.02 X10^3/uL (0.83-4.51); Absolute Neutrophil Count 3.4 X10^3/uL (2.0-7.7); Basophil# 0.04 X10^3/uL; Basophil% 0.8 % (0-1); Hemoglobin 13.6 g/dL (12.0-15.0); Lymphocyte # 1.02 X10^3/ul (4.0); Lymphocyte % 20.4 % (19-41); Mean Corpuscular Hgb 35.1 pg (27.0-32.0); Mean Corpuscular Volume 103.1 fL (81-99); Mean Platelet Vol. 9.7 fl (6.2-12.0); Monocyte# 0.37 X10^3/uL; Monocyte% 7.4 % (0-10); NRBC Flagged by Analyzer 0 % (0-5); Neutrophil # 3.35 X10^3/uL (2.7-7.7); Neutrophil % 67.2 % (47-70); Platelet Count 254 K/mm3 (150-450); RBC Distribution Width CV 12.1 % (11.6-14.6); RBC Distribution Width SD 45.9 fl (35.1-43.9); Red Blood Count 3.88 M/mm3 (4.2-5.4)
[2020-12-06 12:44] LABS: ALB/GLOB Ratio 0.8 RATIO (0.9-2.4); AST(SGOT) 31 U/L (15-37); Alanine Aminotransfer ALT/SGPT 48 U/L (13-56); Albumin, Serum 3.4 g/dL (3.2-5.0); Alkaline Phosphatase 82 U/L (45-117); Anion Gap 8 (5-15); BUN 14 mg/dL (7-18); BUN/Creat Ratio 15.9 RATIO (10-20); Calcium,Total 8.6 mg/dL (8.5-10.1); Chloride 105 mmol/L (98-107); Cholesterol 153 mg/dL (200); Creatinine, Serum 0.88 mg/dL (0.55-1.02); EST Glomerular Filtration Rate 68 mL/min (>60); Est Glom Filt Rate - Afr Amer 82 mL/min (>60); Free T3 2.2 pg/mL (2.18-3.98); Glucose 100 mg/dL (74-106); High Density Lipoprotein 44 mg/dL; Potassium 4.1 mmol/L (3.5-5.1); Protein, Total 7.4 g/dL (6.4-8.2); Sodium Level 138 mmol/L (136-145); T4 Free Direct 1.15 ng/dL (0.76-1.46); Thyroid Stim Hormone (TSH) 1.07 uIU/mL (0.358-3.74); Triglycerides 151 mg/dL; Very Low Density Lipoprotein 30 mg/dL (5-40)
== END ==
PROVIDERS: PCP Family Medicine; Referring Provider Family Medicine; Visit Provider Family Medicine
DX: E03.9 Hypothyroidism, unspecified (principal); E78.5 Hyperlipidemia, unspecified; R74.8 Abnormal levels of other serum enzymes; E55.9 Vitamin D deficiency, unspecified
CPT/HCPCS: 36415; 80053; 80061; 82306; 84439; 84443; 84481; 85025

== ENCOUNTER → 2021-02-26 10:22 | Outpatient (CLI) | payer MEDICARE, SELFPAY ==
[2021-02-22 14:01] VITALS: BMI 43.0
== END ==
PROVIDERS: PCP Family Medicine; Referring Provider Internal Medicine Cardiovascular Disease; Visit Provider Internal Medicine Cardiovascular Disease
DX: I47.1 Supraventricular tachycardia (principal); I48.0 Paroxysmal atrial fibrillation; I49.3 Ventricular premature depolarization; Z98.890 Other specified postprocedural states
CPT/HCPCS: 93225; 93226

== ENCOUNTER → 2021-06-22 13:39 | Outpatient (CLI) | payer MEDICARE, SELFPAY ==
--- NOTE | 2021-06-22 13:41 | RAD_ITS ---
STUDY: X-RAY - CERVICAL SPINE REASON FOR EXAM: Female, 70 years old. PAIN TECHNIQUE: XR Spine Cervical 4 or 5 Views COMPARISON: None FINDINGS: Normal anterior atlantoaxial articulation. The odontoid process is obscured by the overlying hard palate on the open mouth view. Therefore, it is not fully evaluated by plain film. There is straightening of the normal cervical lordosis. There is multi-level endplate spondylosis. There is multi-level degenerative disc disease with multilevel disc space narrowing. There is multi-level osseous foraminal stenosis. The soft tissue structures are unremarkable. RAD/Cerv Spine 4 or 5 Views IMPRESSION: There are degenerative changes as noted above. The odontoid process is obscured by the overlying hard palate on the open mouth view. Therefore, it is not fully evaluated by plain film. Electronically Signed: Luis Miguel Candelaria MD at 18:20 EDT , Service support ,
== END ==
PROVIDERS: PCP Family Medicine; Referring Provider Family Medicine; Visit Provider Family Medicine
DX: M47.22 Other spondylosis with radiculopathy, cervical region (principal); M50.30 Other cervical disc degeneration, unspecified cervical region; M48.02 Spinal stenosis, cervical region
CPT/HCPCS: 72050

== ENCOUNTER 2021-08-07 11:10 | Emergency (ER) | payer MEDICARE, SELFPAY ==
[2021-08-07] VITALS (11 sets, daily range): BP systolic 128–209; BP diastolic 64–107; PULSE 81–125; RESP 12–24; TEMP 37.1; O2SAT 89–99; BMI 42.1
--- NOTE | 2021-08-07 11:38 | EKG12_ITS ---
Test Reason : PALP Blood Pressure : / mmHG Vent. Rate : 108 BPM Atrial Rate : 277 BPM P-R Int : 000 ms QRS Dur : 092 ms QT Int : 292 ms P-R-T Axes : 093 008 014 degrees QTc Int : 391 ms Atrial flutter with variable A-V block Anterolateral infarct , age undetermined Abnormal ECG Confirmed by CESAR VOSS, JANET ([id number]), editor publications ANA PEREZ ([id number]) on 08/10/2021 7:08:08 AM Referred By: Confirmed By:JANET GUERRERO MD
--- NOTE | 2021-08-07 11:38 | ED.VIS.CHEST ---
HPI History of Present Illness Chief Complaint: Palpitations Informant: patient Narrative Narrative: 70-year-old female presenting to the emergency department for the evaluation of palpitations. Patient has a history of ectopic atrial tachycardia and paroxysmal atrial fibrillation. She follows locally with Dr. Garcia and is seeing the EP group at [facility] where she has gone undergone a radiofrequency ablation. Patient states that this morning at 0945 hours she developed heart palpitations. She denies any chest pain, syncope, or dyspnea. Patient has been compliant with her Eliquis not missing any doses. She is not currently on any rate limiting agents. She states that she had been on metoprolol in the past. She notes that she had a failed cardioversion prior to her RFA. [facility] Medical History Ectopic atrial tachycardia History of cardioversion (~05/30/20) Hyperlipidemia Mitral valve prolapse Nonrheumatic aortic (valve) stenosis with insufficiency Nonrheumatic mitral (valve) prolapse Palpitations Paroxysmal atrial fibrillation Paroxysmal supraventricular tachycardia by electrocardiogram (ECG) Premature atrial contraction Premature ventricular contractions Pure hypercholesterolemia SVT (supraventricular tachycardia) Home Medications rosuvastatin 5 mg tablet 5 mg PO QDAY tab 11/17/17 [History Last Taken Unknown] levothyroxine 137 mcg tablet 137 mcg PO DAILY 11/16/18 [History Last Taken 05/30/20] fluoxetine 40 mg capsule 40 mg PO DAILY 04/12/20 [History Last Taken Unknown] levocetirizine 5 mg tablet 5 mg PO DAILY 09/27/20 [History Last Taken Unknown] esterified estrogens-methyltestosterone 0.625 mg-1.25 mg tablet 1 tab PO DAILY 02/22/21 [History Last Taken Unknown] estradiol 0.5 mg tablet 0.5 mg PO DAILY 02/22/21 [History Last Taken Unknown] Eliquis 5 mg PO BID 08/07/21 [History Last Taken Unknown] Allergy/AdvReac Type Severity Reaction Status Date / Time fentanyl Allergy Rash Verified 08/07/21 13:56 Penicillins Allergy Unknown Verified 08/07/21 11:14 cephalexin [From Keflex] AdvReac Severe Unknown Verified 08/07/21 11:14 clarithromycin [From Biaxin] AdvReac Severe Unknown Verified 08/07/21 11:14 erythromycin base AdvReac Severe Unknown Verified 08/07/21 11:14 pravastatin [From Pravachol] AdvReac Severe Unknown Verified 08/07/21 11:14 simvastatin AdvReac Severe Unknown Verified 08/07/21 11:14 Anesthetics - Amide Type - AdvReac Other Verified 08/07/21 11:14 Select A [Anesthetics - Amide Type] Anesthetics - Faby Type- AdvReac Other Verified 08/07/21 11:14 Parabens [Anesthetics - Faby Type] codeine AdvReac Nausea/Vom/ Verified 08/07/21 11:14 Diarrhea morphine AdvReac Nausea/Vom/ Verified 08/07/21 11:14 Diarrhea Family History Mother CAD (coronary artery disease) Myocardial infarction COPD (chronic obstructive pulmonary disease) Other Family history of hyperlipidemia Family history of hypertension Surgical History History of cardiac radiofrequency ablation (~06/23/20) Social History Smoking Status: Former smoker alcohol intake: never substance use type: does not use ROS ROS ED Constitutional Constitutional ED: Denies chills, fever(s) or weight loss Eyes Eyes: Denies change in vision or diplopia ENT ENT ED: Denies ear pain, rhinorrhea or sore throat Cardiovascular Cardiovascular: Reports palpitations; Denies chest pain, orthopnea or racing heartbeat Respiratory/Chest Respiratory/Chest: Denies cough, dyspnea or orthopnea Gastrointestinal Gastrointestinal: Denies abdominal pain, diarrhea, nausea or vomiting Genitourinary Genitourinary ED: Denies dysuria, hematuria or urinary frequency Musculoskeletal Musculoskeletal: Denies arthralgias or myalgias Integumentary Denies abscess or rash Neurologic Neurologic: Denies headache(s) or weakness Psychiatric Psychiatric: Denies anxiety, depression, suicidal ideation or suicidal thoughts Endocrine Endocrinology: Denies polydipsia, polyphagia or polyuria Allergic/Immunologic Allergic/Immunologic ED: Denies mouth swelling, tongue swelling or urticaria EXAM Physical Exam Const Vital Signs: 08/07/21 11:11 08/07/21 11:23 08/07/21 12:15 Temperature 98.7 F Temperature Source Temporal Pulse Rate 125 H 115 H 98 Pulse Rate [1 (Initial Baseline)] Pulse Rate [2] Pulse Rate [3] Respiratory Rate 20 H 17 16 Respiratory Rate [1 (Initial Baseline)] Respiratory Rate [2] Respiratory Rate [3] Respiratory Effort Short of Breath Blood Pressure 128/107 H 185/101 H 152/102 H Blood Pressure [1 (Initial Baseline)] Blood Pressure [2] Blood Pressure [3] Blood Pressure Mean 114 129 118 Pulse Ox 96 95 94 Oxygen Delivery Method Room Air Room Air Room Air Oxygen Delivery Method [1 (Initial Baseline)] Oxygen Delivery Method [2] Oxygen Delivery Method [3] Oxygen Flow Rate (L/min) Oxygen Flow Rate (L/min) [1 (Initial Baseline)] Oxygen Flow Rate (L/min) [2] Oxygen Flow Rate (L/min) [3] 08/07/21 13:07 08/07/21 13:27 08/07/21 13:28 Temperature Temperature Source Pulse Rate 120 H 117 H Pulse Rate [1 (Initial Baseline)] 118 H Pulse Rate [2] 85 Pulse Rate [3] 102 H Respiratory Rate 24 H 14 Respiratory Rate [1 (Initial Baseline)] 17 Respiratory Rate [2] 21 H Respiratory Rate [3] 20 H Respiratory Effort Blood Pressure 152/94 H 146/104 H Blood Pressure [1 (Initial Baseline)] 159/93 H Blood Pressure [2] 201/89 H Blood Pressure [3] 209/81 H Blood Pressure Mean 113 Pulse Ox 95 98 Oxygen Delivery Method Nasal Cannula Room Air Oxygen Delivery Method [1 (Initial Baseline)] Nasal Cannula Oxygen Delivery Method [2] Nasal Cannula Oxygen Delivery Method [3] Nasal Cannula Oxygen Flow Rate (L/min) 2 Oxygen Flow Rate (L/min) [1 (Initial Baseline)] 2 Oxygen Flow Rate (L/min) [2] 2 Oxygen Flow Rate (L/min) [3] 4 08/07/21 13:40 08/07/21 13:45 08/07/21 13:50 Temperature Temperature Source Pulse Rate 88 81 86 Pulse Rate [1 (Initial Baseline)] Pulse Rate [2] Pulse Rate [3] Respiratory Rate 16 17 19 H Respiratory Rate [1 (Initial Baseline)] Respiratory Rate [2] Respiratory Rate [3] Respiratory Effort Blood Pressure 170/72 H 165/71 H 172/67 H Blood Pressure [1 (Initial Baseline)] Blood Pressure [2] Blood Pressure [3] Blood Pressure Mean Pulse Ox 96 96 95 Oxygen Delivery Method Nasal Cannula Room Air Room Air Oxygen Delivery Method [1 (Initial Baseline)] Oxygen Delivery Method [2] Oxygen Delivery Method [3] Oxygen Flow Rate (L/min) 2 Oxygen Flow Rate (L/min) [1 (Initial Baseline)] Oxygen Flow Rate (L/min) [2] Oxygen Flow Rate (L/min) [3] 08/07/21 14:06 Temperature Temperature Source Pulse Rate 93 Pulse Rate [1 (Initial Baseline)] Pulse Rate [2] Pulse Rate [3] Respiratory Rate 12 Respiratory Rate [1 (Initial Baseline)] Respiratory Rate [2] Respiratory Rate [3] Respiratory Effort Blood Pressure 156/64 H Blood Pressure [1 (Initial Baseline)] Blood Pressure [2] Blood Pressure [3] Blood Pressure Mean 94 Pulse Ox 97 Oxygen Delivery Method Room Air Oxygen Delivery Method [1 (Initial Baseline)] Oxygen Delivery Method [2] Oxygen Delivery Method [3] Oxygen Flow Rate (L/min) Oxygen Flow Rate (L/min) [1 (Initial Baseline)] Oxygen Flow Rate (L/min) [2] Oxygen Flow Rate (L/min) [3] Positive well nourished, well developed and obese General Appearance ED: well developed Nutritional Appearance: obese HEENT Reports normocephalic, head/scalp atraumatic, TM's clear and moist mucous membranes normocephalic and atraumatic Tympanic Membrane ED: Yes TM's clear Eyes PERRL and EOMs intact bilaterally Neck no lymphadenopathy, supple and no JVD Resp normal respiratory effort and clear to auscultation bilaterally Cardio Rate: tachycardic and other Other Details: Systolic murmur Rhythm: abnormal rhythm irregularly irregular GI normal to inspection, nondistended, normoactive bowel sounds and non-tender Palpation: soft Back/Spine no CVA tenderness, normal ROM and no thoracic nor lumbar tenderness Extremity normal to inspection General Extremety ED: Negative for edema General Extremity: Negative for edema Neuro oriented x3 and CN's II-XII intact bilaterally Sensorium / Orientation: alert Motor Exam: strength 5/5 throughout Psych mental status grossly normal Mood & Affect: Negative for depressed or tearful Skin no rashes or lesions noted and no wounds MDM MDM MDM Narrative Medical decision making narrative: CBC normal. BMP showed a normal potassium and sodium magnesium at 2.4 troponin at 19. My interpretation of the chest x-ray is no acute process. The patient was discussed with on-call cardiology Dr. Azar. I discussed with the patient different treatment options for her. After shared decision making we proceeded with electrical cardioversion. Patient provided informed written consent for fentanyl and etomidate. Patient received 25 mcg of fentanyl and 17 mg of etomidate. Once adequate sedation was achieved the patient received a single synchronized 300 J shock which resulted in return to a normal sinus rhythm. While waking up from anesthesia the patient developed erythema of the arms face neck and chest. She started developing early hives. She received Benadryl Pepcid. She then began to experience nausea and received Zofran. She was allowed to recover from the anesthesia is doing better. She is remained in a normal sinus rhythm. At this point patient will be discharged home we have added fentanyl to her list of allergies. She is to follow-up with cardiology Lab Data Attestation: I reviewed the patient's lab results. Labs: Laboratory Results - last 24 hr 08/07/21 08/07/21 08/07/21 11:30 11:30 12:05 WBC 4.6 RBC 4.22 Hgb 14.8 Hct 42.5 MCV 100.7 H MCH 35.1 H MCHC 34.8 RDW Std Deviation 47.9 H RDW Coeff of Carlito 13.1 Plt Count 277 MPV 10.8 Immature Gran % (Auto) 0.200 Neut % (Auto) 53.1 Lymph % (Auto) 31.8 Benzie % (Auto) 10.5 H Eos % (Auto) 3.5 Baso % (Auto) 0.9 Absolute Neuts (auto) 2.4 Absolute Lymphs (auto) 1.45 Nucleated RBC % 0 Sodium Cancelled 139 Potassium Cancelled 4.3 Chloride Cancelled 106 Carbon Dioxide Cancelled 23.0 Anion Gap Cancelled 10 BUN Cancelled 19 H Creatinine Cancelled 0.80 Estim Creat Clear Calc Cancelled 61.26 Est GFR (MDRD) Af Amer Cancelled 90 Est GFR (MDRD) Non-Af Cancelled 75 BUN/Creatinine Ratio Cancelled 23.6 H Glucose Cancelled 109 H Calcium Cancelled 9.3 Magnesium Cancelled 2.4 Troponin I High Sens Cancelled 19 Radiography Diagnostic Testing: Clinical Impression(s) from Imaging Studies Chest X-Ray 08/07/21 11:45 IMPRESSION: No acute pulmonary process Electronically Signed: Amrit Garcia MD at 12:15 EST , Service support , EKG Initial EKG: Attestation: I personally reviewed and interpreted this EKG as follows: Comments: Atrial fibrillation with a ventricular rate of 108 bpm Follow-up EKG: Attestation: I personally reviewed and interpreted this EKG as follows: Comments: Sinus rhythm with a first-degree AV block with a ventricular rate of 73 bpm. Discharge Plan Triage Chief Complaint: Palpitations ED Provider: Navin Mason Dx/Rx/DC Orders Clinical Impression: Paroxysmal atrial fibrillation, Allergic reaction caused by a drug Instructions: ED AFIB Prescriptions: No Action rosuvastatin [Crestor] 5 mg tablet 5 mg PO QDAY RF: 0 levothyroxine 137 mcg tablet 137 mcg PO DAILY RF: 0 fluoxetine [Prozac] 40 mg capsule 40 mg PO DAILY RF: 0 estrogens-methyltestosterone 0.625-1.25 mg tablet 1 tab PO DAILY RF: 0 estradiol 0.5 mg tablet 0.5 mg PO DAILY RF: 0 levocetirizine [Xyzal] 5 mg tablet 5 mg PO DAILY RF: 0 Eliquis 5 mg tablet 5 mg PO BID RF: 0 Primary Care Provider: Barbara Shook Referrals: Barbara Shook DO [Primary Care Provider] - As Needed Mack Garcia MD [STAFF PHYSICIAN] - As soon as possible Disposition Disposition: Home, Self Care
--- NOTE | 2021-08-07 11:45 | RAD_ITS ---
STUDY: X-RAY CHEST REASON FOR EXAM: Female, 70 years old. Chest pain TECHNIQUE: Single AP portable view of the chest. COMPARISON: 05/16/2020 FINDINGS: EKG leads overlie the chest The lungs are clear and expanded. There is no demonstrated pleural abnormality. Normal size heart. Normal mediastinum and alma. Normal visualized pulmonary arteries. Normal visualized aortic arch and descending thoracic aorta. There are diffuse degenerative changes of the visualized thoracic spine. Normal visualized ribs, clavicles, and shoulders. There is no demonstrated abnormality of the visualized soft tissue structures of the upper abdomen. RAD/Chest 1 View (Portable) IMPRESSION: No acute pulmonary process Electronically Signed: Amrit Garcia MD at 12:15 EST , Service support ,
[2021-08-07 11:48] LABS: Absolute Lymphocyte Count 1.45 X10^3/uL (0.83-4.51); Absolute Neutrophil Count 2.4 X10^3/uL (2.0-7.7); Basophil# 0.04 X10^3/uL; Basophil% 0.9 % (0-1); Eosinophil# 0.16 X10^3/uL; Eosinophils% 3.5 % (0-5); Hematocrit 42.5 % (37-47); Hemoglobin 14.8 g/dL (12.0-15.0); Lymphocyte # 1.45 X10^3/ul (0.83-4.51); Lymphocyte % 31.8 % (19-41); Mean Corp Hgb Conc 34.8 g/dL (32-36); Mean Corpuscular Hgb 35.1 pg (27.0-32.0); Mean Corpuscular Volume 100.7 fL (81-99); Mean Platelet Vol. 10.8 fl (6.2-12.0); Monocyte# 0.48 X10^3/uL; Monocyte% 10.5 % (0-10); NRBC Flagged by Analyzer 0 % (0-5); Neutrophil # 2.42 X10^3/uL (2.7-7.7); Neutrophil % 53.1 % (47-70); Platelet Count 277 K/mm3 (150-450); RBC Distribution Width CV 13.1 % (11.6-14.6); RBC Distribution Width SD 47.9 fl (35.1-43.9); Red Blood Count 4.22 M/mm3 (4.2-5.4); White Blood Count 4.6 K/mm3 (4.4-11.0)
[2021-08-07 12:34] LABS: Anion Gap 10 (5-15); BUN 19 mg/dL (7-18); BUN/Creat Ratio 23.6 RATIO (10-20); Calcium,Total 9.3 mg/dL (8.5-10.1); Chloride 106 mmol/L (98-107); EST Glomerular Filtration Rate 75 mL/min (>60); Est Glom Filt Rate - Afr Amer 90 mL/min (>60); Estimated Creatinine Clearance 61.26 ml/min; Glucose 109 mg/dL (74-106); Potassium 4.3 mmol/L (3.5-5.1); Sodium Level 139 mmol/L (136-145); Troponin-I HS 19 pg/mL (3.0-54.0)
[2021-08-07 12:54] LABS: Magnesium 2.4 mg/dL (1.6-2.6)
[2021-08-07] MEDS: fentaNYL 100 MCG/2 ML Ampul 25 MCG IV (13:27)
[2021-08-07] MEDS: Etomidate 20 MG/10 ML Vial 17 MG IV (13:29)
[2021-08-07] MEDS: Ondansetron 4 MG/2 ML Vial IV ×2 (13:37→13:58)
[2021-08-07] MEDS: DiphenhydrAMINE 50 MG/ML Syringe 12.5 MG IV (13:40)
[2021-08-07] MEDS: Famotidine 200 MG/20 ML MDV 20 MG in 0.9% Normal Saline (Pres. free 8 ML 300 MG IV (14:01)
--- NOTE | 2021-08-07 14:55 | EKG12_ITS ---
Test Reason : REPEAT Blood Pressure : / mmHG Vent. Rate : 127 BPM Atrial Rate : 254 BPM P-R Int : 000 ms QRS Dur : 090 ms QT Int : 360 ms P-R-T Axes : 000 -05 -04 degrees QTc Int : 523 ms Atrial flutter with variable block Inferior infarct , age undetermined Anterolateral infarct , age undetermined Abnormal ECG Confirmed by CESAR VOSS, JANET ([id number]), business editor ANA PEREZ ([id number]) on 08/10/2021 7:08:41 AM Referred By: Confirmed By:JANET GUERRERO MD
--- NOTE | 2021-08-07 15:07 | EKG12_ITS ---
Test Reason : POST CARDIOVERT Blood Pressure : / mmHG Vent. Rate : 073 BPM Atrial Rate : 073 BPM P-R Int : 212 ms QRS Dur : 090 ms QT Int : 416 ms P-R-T Axes : 040 006 011 degrees QTc Int : 458 ms Sinus rhythm with 1st degree A-V block Anterolateral infarct , age undetermined Abnormal ECG Confirmed by CESAR VOSS, JANET ([id number]), news editor ANA PEREZ ([id number]) on 08/10/2021 7:11:03 AM Referred By: Confirmed By:JANET GUERRERO MD
== END 2021-08-07 15:37 | disposition home or self-care (01) ==
PROVIDERS: Emergency Provider Emergency Medicine; PCP Family Medicine
DX: I48.0 Paroxysmal atrial fibrillation (principal); L50.0 Allergic urticaria; R11.0 Nausea; T40.415A Adverse effect of fentanyl or fentanyl analogs, initial encounter; T41.1X5A Adverse effect of intravenous anesthetics, initial encounter; Y92.538 Other ambulatory health services establishments as the place of occurrence of the external cause; I47.1 Supraventricular tachycardia; I35.2 Nonrheumatic aortic (valve) stenosis with insufficiency; I34.1 Nonrheumatic mitral (valve) prolapse; E78.5 Hyperlipidemia, unspecified; E78.00 Pure hypercholesterolemia, unspecified; E66.9 Obesity, unspecified; Z79.01 Long term (current) use of anticoagulants; Z79.899 Other long term (current) drug therapy
CPT/HCPCS: 71045; 80048; 83735; 84484; 85025; 93005; 96374; 96375; 99285; A4216; J2405; J3490

== ENCOUNTER 2021-12-14 07:37 | Outpatient (CLI) | payer MEDICARE, SELFPAY ==
--- NOTE | 2021-12-14 07:42 | BI_ITS ---
MAMMOGRAPHY - BILATERAL SCREENING REASON FOR EXAM: Female, 71 years old. Routine annual screening examination. PERTINENT HISTORY: Non-contributory. TECHNIQUE: Digital bilateral breast katherine (3D mammographic acquisition) in the CC and MLO projections. 2-D mediolateral oblique (MLO) and craniocaudad (CC) views of both breasts were obtained. CAD: Full Field Digital Mammography with Computer Added Detection was performed. COMPARISON: Comparison is made with prior study dated 03/19/2016 and 03/16/2015. FINDINGS: Breast Composition: There are scattered areas of fibroglandular density. There are no dominant masses or suspicious calcifications. Stable scattered bilateral calcifications. No focal clusters seen. No other significant abnormalities are identified. There has been no significant change since the prior study. BI/SCRN MAMM (CAD)W/KATHERINE BILAT IMPRESSION: Stable bilateral screening mammogram. Yearly follow-up mammogram recommended. (A) ASSESSMENT CATEGORY: BIRADS Category 2: Benign. A letter regarding these results will be sent to the patient by the facility within 30 days. Approximately 10% of breast cancers are not detected by mammography. A normal mammogram should not delay biopsy of a clinically suspicious abnormality. [id number] Electronically Signed: Clark Richmond MD at 8:49 EDT ,
== END 2021-12-14 23:59 | disposition home or self-care (01) ==
LOC: OPBI 07:39
PROVIDERS: PCP Family Medicine; Visit Provider Family Medicine
DX: Z12.31 Encounter for screening mammogram for malignant neoplasm of breast (principal)
CPT/HCPCS: 77063; 77067

== ENCOUNTER 2021-12-26 13:38 | Outpatient (CLI) | payer MEDICARE, SELFPAY ==
[2021-12-26 14:54] LABS: Anion Gap 7 (5-15); BUN 13 mg/dL (7-18); BUN/Creat Ratio 14.9 RATIO (10-20); Calcium,Total 9.6 mg/dL (8.5-10.1); Chloride 108 mmol/L (98-107); Creatinine, Serum 0.87 mg/dL (0.55-1.02); EST Glomerular Filtration Rate 68 mL/min (>60); Est Glom Filt Rate - Afr Amer 82 mL/min (>60); Glucose 98 mg/dL (74-106); Potassium 4.2 mmol/L (3.5-5.1); Sodium Level 141 mmol/L (136-145)
== END 2021-12-26 23:59 | disposition home or self-care (01) ==
LOC: LAB 13:39
PROVIDERS: PCP Family Medicine; Visit Provider Physician Assistant Medical
DX: R03.0 Elevated blood-pressure reading, without diagnosis of hypertension (principal)
CPT/HCPCS: 36415; 80048

== ENCOUNTER → 2022-03-06 | Outpatient (CLI) | payer MEDICARE, SELFPAY ==
[2022-03-06 10:43] LABS: Free T3 2.3 pg/mL (2.18-3.98); T4 Free Direct 1.31 ng/dL (0.76-1.46); Thyroid Stim Hormone (TSH) 0.85 uIU/mL (0.358-3.74)
== END | disposition home or self-care (01) ==
LOC: MTLAB 08:34
PROVIDERS: PCP Family Medicine; Referring Provider Family Medicine; Visit Provider Family Medicine
DX: E03.9 Hypothyroidism, unspecified (principal)
CPT/HCPCS: 36415; 84439; 84443; 84481

== ENCOUNTER → 2022-06-10 | Outpatient (CLI) | payer MEDICARE, SELFPAY ==
--- NOTE | 2022-06-10 11:20 | RAD_ITS ---
STUDY: X-RAY - LUMBAR SPINE REASON FOR EXAM: Female, 71 years old. SCIATICARIGHT LEG TECHNIQUE: 5 view(s) of the lumbar spine were obtained. COMPARISON: None FINDINGS: Normal lumbar lordosis. There is no substantial scoliosis. There is a normal alignment of the vertebrae. There is multilevel endplate spondylosis of the lumbar vertebrae. There is multi-level degenerative disc disease with multi-level disc space narrowing. Facet hypertrophy in the lower lumbar spine. The soft tissue structures are unremarkable. RAD/L/S Spine Min 4 Views IMPRESSION: Degenerative changes of the spine, as detailed above. MRI may be useful. Electronically Signed: Glenroy Crow MD at 16:58 EDT ,
== END | disposition home or self-care (01) ==
LOC: MTRAD 11:17
PROVIDERS: PCP Family Medicine; Referring Provider Family Medicine; Visit Provider Family Medicine
DX: M47.26 Other spondylosis with radiculopathy, lumbar region (principal); M51.16 Intervertebral disc disorders with radiculopathy, lumbar region; M48.061 Spinal stenosis, lumbar region without neurogenic claudication
CPT/HCPCS: 72110

== ENCOUNTER → 2022-12-11 | Outpatient (CLI) | payer MEDICARE, SELFPAY ==
[2022-12-11 12:37] LABS: Absolute Lymphocyte Count 1.18 X10^3/uL (0.83-4.51); Absolute Neutrophil Count 2.6 X10^3/uL (2.0-7.7); Basophil# 0.04 X10^3/uL; Basophil% 0.9 % (0-1); Eosinophil# 0.17 X10^3/uL; Eosinophils% 3.9 % (0-5); Hematocrit 41.2 % (37-47); Hemoglobin 13.9 g/dL (12.0-15.0); Lymphocyte # 1.18 X10^3/ul (0.83-4.51); Lymphocyte % 27.2 % (19-41); Mean Corp Hgb Conc 33.7 g/dL (32-36); Mean Corpuscular Hgb 34.7 pg (27.0-32.0); Mean Corpuscular Volume 102.7 fL (81-99); Monocyte# 0.34 X10^3/uL; Monocyte% 7.8 % (0-10); NRBC Flagged by Analyzer 0 % (0-5); Platelet Count 219 K/mm3 (150-450); RBC Distribution Width CV 12.5 % (11.6-14.6); RBC Distribution Width SD 47.4 fl (35.1-43.9); Red Blood Count 4.01 M/mm3 (4.2-5.4); White Blood Count 4.3 K/mm3 (4.4-11.0)
[2022-12-11 12:42] LABS: Vitamin D,25 Hydroxy 51.6 ng/mL
[2022-12-11 12:59] LABS: ALB/GLOB Ratio 0.9 RATIO (0.9-2.4); AST(SGOT) 34 U/L (15-37); Alanine Aminotransfer ALT/SGPT 44 U/L (13-56); Albumin, Serum 3.5 g/dL (3.2-5.0); Alkaline Phosphatase 70 U/L (45-117); Anion Gap 5 (5-15); BUN 17 mg/dL (7-18); BUN/Creat Ratio 20.1 RATIO (10-20); Calcium,Total 8.9 mg/dL (8.5-10.1); Chloride 106 mmol/L (98-107); Cholesterol 142 mg/dL (200); Creatinine, Serum 0.84 mg/dL (0.55-1.02); EST Glomerular Filtration Rate 70 mL/min (>60); Est Glom Filt Rate - Afr Amer 85 mL/min (>60); Free T3 2.2 pg/mL (2.18-3.98); Globulin 3.7 g/dL (2.2-4.2); Glucose 108 mg/dL (74-106); High Density Lipoprotein 39 mg/dL; Potassium 4.3 mmol/L (3.5-5.1); Protein, Total 7.2 g/dL (6.4-8.2); Sodium Level 140 mmol/L (136-145); T4 Free Direct 1.07 ng/dL (0.76-1.46); Thyroid Stim Hormone (TSH) 1.15 uIU/mL (0.358-3.74); Triglycerides 125 mg/dL; Very Low Density Lipoprotein 25 mg/dL (5-40)
== END | disposition home or self-care (01) ==
LOC: BFHLAB 10:17
PROVIDERS: PCP Family Medicine; Referring Provider Family Medicine; Visit Provider Family Medicine
DX: E03.9 Hypothyroidism, unspecified (principal); E78.5 Hyperlipidemia, unspecified; I10 Essential (primary) hypertension; E55.9 Vitamin D deficiency, unspecified; Z51.81 Encounter for therapeutic drug level monitoring
CPT/HCPCS: 36415; 80053; 80061; 82306; 84439; 84443; 84481; 85025

== ENCOUNTER → 2022-12-18 | Outpatient (CLI) | payer MEDICARE, SELFPAY ==
--- NOTE | 2022-12-18 08:28 | BI_ITS ---
MAMMOGRAPHY - BILATERAL SCREENING REASON FOR EXAM: Female, 72 years old. Routine annual screening examination. PERTINENT HISTORY: Mother with breast cancer. TECHNIQUE: Digital bilateral breast katherine (3D mammographic acquisition) in the CC and MLO projections. 2-D mediolateral oblique (MLO) and craniocaudad (CC) views of both breasts were obtained. CAD: Full Field Digital Mammography with Computer Added Detection was performed. COMPARISON: Comparison is made with prior examination December 14, 2021 and March 19, 2000 FINDINGS: Breast Composition: There are scattered areas of fibroglandular density. There are no dominant masses or suspicious calcifications. Stable scattered bilateral calcifications. No other significant abnormalities are identified. There has been no significant change since the prior study. BI/SCRN MAMM (CAD)W/KATHERINE BILAT IMPRESSION: Stable bilateral screening mammogram. Yearly follow-up mammogram recommended. (A) ASSESSMENT CATEGORY: BIRADS Category 2: Benign. A letter regarding these results will be sent to the patient by the facility within 30 days. Approximately 10% of breast cancers are not detected by mammography. A normal mammogram should not delay biopsy of a clinically suspicious abnormality. [id number] Electronically Signed: Clark Richmond MD at 13:46 EDT ,
== END | disposition home or self-care (01) ==
LOC: OPBI 08:26
PROVIDERS: PCP Family Medicine; Visit Provider Family Medicine
DX: Z12.31 Encounter for screening mammogram for malignant neoplasm of breast (principal); Z80.3 Family history of malignant neoplasm of breast
CPT/HCPCS: 77063; 77067

== ENCOUNTER → 2023-06-09 | Outpatient (CLI) | payer MEDICARE, SELFPAY | END | disposition home or self-care (01) | LOC: SL 20:25 | PROVIDERS: PCP Family Medicine; Referring Provider Physician Assistant Medical; Visit Provider Physician Assistant Medical | DX: G47.10 Hypersomnia, unspecified (principal); I48.91 Unspecified atrial fibrillation; G47.33 Obstructive sleep apnea (adult) (pediatric); Z98.890 Other specified postprocedural states | CPT/HCPCS: 95810 ==

== ENCOUNTER → 2023-09-22 | Outpatient (CLI) | payer MEDICARE, SELFPAY ==
--- NOTE | 2023-09-22 14:06 | ECHOCS_ITS ---
Reason For Study: Afib, Aflutter Procedure This was a 2D Doppler, Color Flow transthoracic echocardiogram. Contrast injection was performed. Exam performed in department. Left Ventricle Normal LV size. Left ventricular systolic function is normal. The estimated ejection fraction is 60 %. No regional wall motion abnormalities noted. Right Ventricle Normal RV size. Normal systolic function. Atria Normal left atrium. Normal right atrium. Mitral Valve Normal mitral valve. Tricuspid Valve Normal tricuspid valve. Mild (1+) tricuspid valve insufficiency. Pulmonary artery systolic pressure is 31 mmHg. Aortic Valve Trisinus/trileaflet aortic valve. Mild focal aortic valve calcification. Mild (1+) aortic valve insufficiency. Pulmonic Valve The pulmonic valve is not well visualized. Great Vessels Normal aortic root. The pulmonary artery is normal size. Normal inferior vena cava. Pericardium/Pleural No pericardial effusion. Medication Diluted definity 1.5ml given slow IV push to enhance endocardial definition. MMode/2D Measurements & Calculations LVIDd: 4.6 cm IVSd: 1.2 cm LVOT diam: 2.0 cm LVIDs: 2.9 cm LVPWd: 1.3 cm RVDd: 3.4 cm FS: 37.0 % LVOT area: 3.1 cm2 Ao root diam: 3.3 cm LAV(MOD-bp): 36.4 ml LVAd ap4: 26.8 cm2 LAV(MOD-bp) Indexed: 16.3 ml/m2 LVLd ap4: 7.4 cm LAV(MOD-sp2): 32.9 ml EDV(MOD-sp4): 78.0 ml LAV(MOD-sp4): 40.0 ml EDV(sp4-el): 82.1 ml LVAs ap4: 15.0 cm2 LVLs ap4: 6.4 cm ESV(MOD-sp4): 28.5 ml ESV(sp4-el): 29.7 ml EF(MOD-sp4): 63.5 % EF(sp4-el): 63.9 % SV(MOD-sp4): 49.6 ml SV(sp4-el): 52.4 ml LA A4 area: 15.6 cm2 LA dimension(2D): 4.0 cm RA A4 area: 14.4 cm2 TAPSE: 2.6 cm Time Measurements MV dec time: 0.18 sec Doppler Measurements & Calculations MV E max nilson: 102.9 cm/sec Lat Peak E' Nilson: 8.7 cm/sec Med Peak E' Nilson: 8.7 cm/sec MV A max nilson: 36.3 cm/sec E/E' lat: 11.8 E/E' med: 11.9 MV E/A: 2.8 MV dec slope: 562.6 cm/sec2 Ao V2 max: 255.1 cm/sec AI max nilson: 419.6 cm/sec Ao max P.1 mmHg AI max P.6 mmHg Ao V2 mean: 193.2 cm/sec AI dec slope: 275.7 cm/sec2 Ao mean P.1 mmHg AI P1/2t: 445.8 msec Ao V2 VTI: 53.7 cm AV (velocity ratio): 0.34 GENNARO(I,D): 1.0 cm2 GENNARO(V,D): 1.2 cm2 LV V1 max: 98.9 cm/sec SV(LVOT): 56.2 ml PA V2 max: 71.0 cm/sec LV V1 max P.9 mmHg LV V1 mean P.3 mmHg LV V1 mean: 73.4 cm/sec LV V1 VTI: 18.1 cm TR max nilson: 267.4 cm/sec TR max P.6 mmHg ECHO/Echo Complete W/ Contrast Interpretation Summary Normal LV size. Left ventricular systolic function is normal. The estimated ejection fraction is 60 %. Pulmonary artery systolic pressure is 31 mmHg. Contrast injection was performed. Ordering Physician: Rocío Collins Referring Physician: Barbara Shook Performed By: Camelia Dobbs RDCS, RVT
--- OUTSIDE RECORDS SUMMARY | 2023-09-22 15:22 | XMS RPT_ITS | CCD ---
Author Name Unknown Address [address] [place] [address] Organization [facility] Results Test Name Value Interpretation Reference Range Facil ity Progress note 08-13-2021 Note Date & Type Note Facility 08-13-2021 Note HNO ID: [id number] Author: Micheline Diaz APRN.PRODUCT MANUFACTURING PROFESSIONAL Service: ? Author Type: Nurse Practitioner Type: Progress Notes Filed: 08/13/2021 10:01 AM Note Text: [facility] Cardiology Electrophysiology PRIMARY CARE PHYSICIAN: Barbara Shook DO [address] [place] [address] CHIEF COMPLAINT: Cardiovascular medicine follow-up for arrhythmia. HISTORY OF PRESENT ILLNESS: History copied from previous notes, edited as needed: Dr. Harris's notes 06/15/2020: is a 69 year old female who presents today for evaluation of arrhythmia, specifically atrial fibrillation. ?She is referred by her local insurance salesman, Dr. Garcia. ?has a very long history of intermittent palpitations, even from a very young age. 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 ?This was performed at [facility] by Dr. Zuñiga. ?The AVNRT was successfully eliminated with RF catheter ablation. ?She has not been aware of recurrence of the SVT since that time. ?However, she states that she developed atrial fibrillation a couple of years ago. ?She experiences palpitation, fatigue and effort intolerance with the arrhythmia. ?She was treated with a beta-bharathi medication (metoprolol) and oral anticoagulation therapy. ?She states she underwent an attempt to restore sinus rhythm with electrical cardioversion in mid May, but that this was unsuccessful. She states Dr. Garcia told?her that sinus rhythm could not be restored despite 3 shocks. ?Cardiac monitoring prior to the cardioversion had revealed persistent atrial fibrillation/flutter, at times with slow ventricular response rate and pauses (up to 4 seconds).??She was experiencing some lightheadedness and dizziness, in addition to the fatigue, so the metoprolol was discontinued. ?She states she has experienced a lot of improvement with the fatigue and lightheadedness off the metoprolol. ?In light of the issue of bradycardia on rate controlling medication?and the failure to restore sinus rhythm with the cardioversion, she is referred to me for evaluation of the management options. She?denies chest pain, orthopnea, cough, PND,?syncope. ? The patient underwent cryoballoon catheter ablation of symptomatic persistent atrial fibrillation with Dr. Harris on 06/23/2020. She remained stable overnight, subsequently was discharged 06/24/2020. ? Additional History Jessica Diaz, PRODUCT MANUFACTURING PROFESSIONAL 02/07/2021: The patient reports she is doing reasonably well from a heart rhythm perspective. She does admit to that approximately 2 weeks ago she experienced an episode of palpitations that lasted approximately 1 hour, she recalls taking Advil the day for generalized aches and pains and believes this could have possibly contributed to the episode of palpitations, which spontaneously resolved. She is pleased with the outcome following her ablation and glad she decided to have the procedure performed. She remains on Eliquis without any bleeding issues. She denies chest discomfort, shortness of breath, lightheadedness, dizziness, near-syncope or syncope. Interval History: The patient reports he had been doing really well from an arrhythmia perspective until last week, she had an episode of palpitations, accompanied by lower extremity weakness and mild shortness of breath, she did present to [facility] where she was cardioverted, with buddhist of sinus rhythm. This is the only episode she has had since the ablation procedure with Dr. Harris on 06/23/2020. She was told she should be tested for sleep apnea, and also reports her blood pressure has been somewhat labile recently, I have asked that she follow-up with her PCP regarding these concerns. She is also scheduled to see her insurance salesman, Dr. Garcia on 08/26/2021. She denies chest discomfort, near-syncope or syncope. PAST MEDICAL HISTORY Diagnosis Date - Acute cholecystitis - Adverse effect of beta-bharathi excessive bradycardia (slow ventricular response rates and pauses during atrial fibrillation) - Anticoagulant long-term use apixaban (Eliquis); indication: stroke prevention atrial fibrillation - Anxiety state, unspecified - Arrhythmia - At risk for stroke [id number] = 2 (age, female gender) -- this combination of risk factors is considered borderline risk by Practice Guidelines, much like male patients with [id number] score of 1 - Atrial tachycardia, paroxysmal (HCC) - Bradycardia slow ventricular response rates and pauses during atrial fibrillation; mostly at night but sometimes during the day - Calculus of gallbladder without mention of cholecystitis or obstruction - Cardiac dysrhythmia, unspecified - Chronic depressive personality disorder - Dizziness - Lightheadedness - Morbid obesity (HCC) - Nonspecific elevation of levels of transaminase or lacti (more content not included)... [facility] Progress note 02-07-2021 Note Date & Type Note Facility 02-07-2021 Note HNO ID: [id number] Author: Micheline Diaz APRN.PRODUCT MANUFACTURING PROFESSIONAL Service: ? Author Type: Nurse Practitioner Type: Progress Notes Filed: 02/07/2021 9:09 AM Note Text: [facility] Cardiology Electrophysiology PRIMARY CARE PHYSICIAN: Barbara Shook DO [address] [place] [address] CHIEF COMPLAINT: Cardiovascular medicine follow-up for arrhythmia. HISTORY OF PRESENT ILLNESS: History copied from previous notes, edited as needed: Dr. Harris's notes 06/15/2020: Ms. Beltran is a 69 year old female who presents today for evaluation of arrhythmia, specifically atrial fibrillation. She is referred by her local insurance salesman, Dr. Garcia. Ms. Beltran has a very long history of intermittent palpitations, even from a very young age. 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 This was performed at [facility] by Dr. Zuñiga. The AVNRT was successfully eliminated with RF catheter ablation. She has not been aware of recurrence of the SVT since that time. However, she states that she developed atrial fibrillation a couple of years ago. She experiences palpitation, fatigue and effort intolerance with the arrhythmia. She was treated with a beta-bharathi medication (metoprolol) and oral anticoagulation therapy. She states she underwent an attempt to restore sinus rhythm with electrical cardioversion in mid May, but that this was unsuccessful. She states Dr. Garcia told her that sinus rhythm could not be restored despite 3 shocks. Cardiac monitoring prior to the cardioversion had revealed persistent atrial fibrillation/flutter, at times with slow ventricular response rate and pauses (up to 4 seconds). She was experiencing some lightheadedness and dizziness, in addition to the fatigue, so the metoprolol was discontinued. She states she has experienced a lot of improvement with the fatigue and lightheadedness off the metoprolol. In light of the issue of bradycardia on rate controlling medication and the failure to restore sinus rhythm with the cardioversion, she is referred to me for evaluation of the management options. She denies chest pain, orthopnea, cough, PND, syncope. ? The patient underwent cryoballoon catheter ablation of symptomatic persistent atrial fibrillation with Dr. Harris on 06/23/2020. She remained stable overnight, subsequently was discharged 06/24/2020. Interval History: The patient reports she is doing reasonably well from a heart rhythm perspective. She does admit to that approximately 2 weeks ago she experienced an episode of palpitations that lasted approximately 1 hour, she recalls taking Advil the day for generalized aches and pains and believes this could have possibly contributed to the episode of palpitations, which spontaneously resolved. She is pleased with the outcome following her ablation and glad she decided to have the procedure performed. She remains on Eliquis without any bleeding issues. She denies chest discomfort, shortness of breath, lightheadedness, dizziness, near-syncope or syncope. PAST MEDICAL HISTORY Diagnosis Date - Acute cholecystitis - Adverse effect of beta-bharathi excessive bradycardia (slow ventricular response rates and pauses during atrial fibrillation) - Anticoagulant long-term use apixaban (Eliquis); indication: stroke prevention atrial fibrillation - Anxiety state, unspecified - Arrhythmia - At risk for stroke [id number] = 2 (age, female gender) -- this combination of risk factors is considered borderline risk by Practice Guidelines, much like male patients with [id number] score of 1 - Atrial tachycardia, paroxysmal (HCC) - Bradycardia slow ventricular response rates and pauses during atrial fibrillation; mostly at night but sometimes during the day - Calculus of gallbladder without mention of cholecystitis or obstruction - Cardiac dysrhythmia, unspecified - Chronic depressive personality disorder - Dizziness - Lightheadedness - Morbid obesity (HCC) - Nonspecific elevation of levels of transaminase or lactic acid dehydrogenase (LDH) - Persistent atrial fibrillation (HCC) symptomatic; refractory to medical therapy; s/p balloon catheter cryoablation for atrial fibrillation 06/23/2020 - PMH - PAST MEDICAL HISTORY OF elevated thyroid - PSVT (paroxysmal supraventricular tachycardia) (HCC) - Pure hypercholesterolemia - Status post catheter ablation of atrial fibrillation balloon catheter cryoablation for atrial fibrillation 06/23/2020 PAST SURGICAL HISTORY Procedure Laterality Date - AFIB ABLATION/PULM VEIN ISOLATION 06/23/2020 balloon catheter cryoablation/PVAI for atrial fibrillation; [facility] Dr. Harris - APPENDECTOMY - CARDIAC MONITORING CONTINUOUS 03/31/2020 30-day monitoring: AF/flutter; NSVT vs aberrant conduction; slow VR to AF and pauses during nocturnal hours also someti (more content not included)... [facility] Summary Purpose Family History No Family History Records Found Advance Directives No Advanced Directives Records Found Additional Source Comments INFORMATION SOURCE (unrecogn ized section and content) FOR RECORDS PERTAINING TO PATIENTS WHO ARE OR HAVE BEEN ENROLLED IN A CHEMICAL DEPENDENCY/SUBSTANCEABUSE PROGRAM, SOME INFORMATION MAY BE OMITTED. This clinical summary was aggregated from multiple sources. Caution should be exercised in using it in the provision of clinical care. This summary normalizes information from multiple sources, and as a consequence, information in this document may materially change the coding, format and clinical context of patient data. In addition, data may be omitted in some cases. CLINICAL DECISIONS SHOULD BE BASED ON THE PRIMARY CLINICAL RECORDS. [employer] [facility]. provides no warranty or guarantee of the accuracy or completeness of information in this document.
== END | disposition home or self-care (01) ==
PROVIDERS: PCP Family Medicine; Referring Provider Nurse Practitioner Gerontology; Visit Provider Nurse Practitioner Gerontology
DX: I48.0 Paroxysmal atrial fibrillation (principal)
CPT/HCPCS: 93306; Q9957; A4216; C8929

== ENCOUNTER → 2023-12-15 | Outpatient (CLI) | payer MEDICARE, SELFPAY ==
[2023-12-15 12:20] LABS: Absolute Lymphocyte Count 1.06 X10^3/uL (0.83-4.51); Absolute Neutrophil Count 2.8 X10^3/uL (2.0-7.7); Basophil# 0.05 X10^3/uL; Basophil% 1.1 % (0-1); Eosinophil# 0.18 X10^3/uL; Eosinophils% 4.1 % (0-5); Hematocrit 41.7 % (37-47); Hemoglobin 13.9 g/dL (12.0-15.0); Lymphocyte # 1.06 X10^3/ul (0.83-4.51); Mean Corp Hgb Conc 33.3 g/dL (32-36); Mean Corpuscular Hgb 33.4 pg (27.0-32.0); Mean Corpuscular Volume 100.2 fL (81-99); Mean Platelet Vol. 9.9 fl (6.2-12.0); Monocyte# 0.34 X10^3/uL; Monocyte% 7.7 % (0-10); NRBC Flagged by Analyzer 0 % (0-5); Neutrophil # 2.78 X10^3/uL (2.7-7.7); Neutrophil % 62.9 % (47-70); Platelet Count 249 K/mm3 (150-450); RBC Distribution Width CV 12.7 % (11.6-14.6); RBC Distribution Width SD 47.2 fl (35.1-43.9); Red Blood Count 4.16 M/mm3 (4.2-5.4); White Blood Count 4.4 K/mm3 (4.4-11.0)
[2023-12-15 12:44] LABS: Vitamin D,25 Hydroxy 53.5 ng/mL
[2023-12-15 13:07] LABS: ALB/GLOB Ratio 0.9 RATIO (0.9-2.4); AST(SGOT) 31 U/L (15-37); Alanine Aminotransfer ALT/SGPT 34 U/L (13-56); Albumin, Serum 3.4 g/dL (3.2-5.0); Alkaline Phosphatase 83 U/L (45-117); Anion Gap 5 (5-15); BUN 13 mg/dL (7-18); BUN/Creat Ratio 16.9 RATIO (10-20); Calcium,Total 9.1 mg/dL (8.5-10.1); Chloride 107 mmol/L (98-107); Cholesterol 146 mg/dL (200); Creatinine, Serum 0.77 mg/dL (0.55-1.02); EST Glomerular Filtration Rate 78 mL/min (>60); Est Glom Filt Rate - Afr Amer 95 mL/min (>60); Free T3 2.2 pg/mL (2.18-3.98); Globulin 3.8 g/dL (2.2-4.2); Glucose 105 mg/dL (74-106); High Density Lipoprotein 37 mg/dL; Protein, Total 7.2 g/dL (6.4-8.2); Sodium Level 139 mmol/L (136-145); T4 Free Direct 1.23 ng/dL (0.76-1.46); Thyroid Stim Hormone (TSH) 0.76 uIU/mL (0.358-3.74); Triglycerides 117 mg/dL; Very Low Density Lipoprotein 23 mg/dL (5-40)
== END | disposition home or self-care (01) ==
LOC: BFHLAB 09:52
PROVIDERS: PCP Family Medicine; Referring Provider Family Medicine; Visit Provider Family Medicine
DX: E03.9 Hypothyroidism, unspecified (principal); E78.5 Hyperlipidemia, unspecified; I10 Essential (primary) hypertension; E55.9 Vitamin D deficiency, unspecified; Z51.81 Encounter for therapeutic drug level monitoring
CPT/HCPCS: 36415; 80053; 80061; 82306; 84439; 84443; 84481; 85025

== ENCOUNTER 2024-01-27 06:46 | Day surgery (SDC) | payer MEDICARE, SELFPAY ==
--- NOTE | 2024-01-27 07:01 | PCM.HP.BLA ---
History and Physical Date of Admission: 01/27/24 Visit Reasons: COLONOSCOPY SCREENING Chief Complaint: colonoscopy screening Is patient in pain?: No Allergies fentanyl Allergy (Verified 01/13/24 13:31) RashPenicillins Allergy (Verified 01/13/24 13:31) Unknowncephalexin [From Keflex] Adverse Reaction (Severe, Verified 01/13/24 13:31) Unknownclarithromycin [From Biaxin] Adverse Reaction (Severe, Verified 01/13/24 13:31) Unknownerythromycin base Adverse Reaction (Severe, Verified 01/13/24 13:31) Unknownpravastatin [From Pravachol] Adverse Reaction (Severe, Verified 01/13/24 13:31) Unknownsimvastatin Adverse Reaction (Severe, Verified 01/13/24 13:31) UnknownAnesthetics - Amide Type - Select A [Anesthetics - Amide Type] Adverse Reaction (Verified 01/13/24 13:31) OtherAnesthetics - Faby Type- Parabens [Anesthetics - Faby Type] Adverse Reaction (Verified 01/13/24 13:31) Othercodeine Adverse Reaction (Verified 01/13/24 13:31) Nausea/Vom/Diarrheamorphine Adverse Reaction (Verified 01/13/24 13:31) Nausea/Vom/Diarrhea Medications rosuvastatin 5 mg tablet (Crestor) 5 mg PO QDAY 11/17/17 [History Confirmed 01/13/24] levocetirizine 5 mg tablet (Xyzal) 5 mg PO DAILY 09/27/20 [History Confirmed 01/13/24] esterified estrogens-methyltestosterone 0.625 mg-1.25 mg tablet 1 tab PO DAILY 02/22/21 [History Confirmed 01/13/24] estradiol 0.5 mg tablet 0.5 mg PO DAILY 02/22/21 [History Confirmed 01/13/24] cholecalciferol (vitamin D3) 125 mcg (5,000 unit) capsule 125 mcg PO DAILY 12/26/21 [History Confirmed 01/13/24] fluoxetine 40 mg capsule (Prozac) 20 mg PO DAILY 12/26/21 [History Confirmed 01/13/24] levothyroxine 137 mcg tablet 125 mcg PO DAILY 12/26/21 [History Confirmed 01/13/24] apixaban 5 mg tablet (Eliquis) 5 mg PO BID #180 TABLETS 11/14/23 [Rx Confirmed 01/13/24] [facility] Medical History Ectopic atrial tachycardia Essential hypertension History of cardioversion (~05/30/20) Hyperlipidemia Mitral valve prolapse Nonrheumatic aortic (valve) stenosis with insufficiency Nonrheumatic mitral (valve) prolapse Palpitations Paroxysmal atrial fibrillation Paroxysmal supraventricular tachycardia by electrocardiogram (ECG) Premature atrial contraction Premature ventricular contractions Pure hypercholesterolemia SVT (supraventricular tachycardia) Surgical History History of cardiac radiofrequency ablation (~06/23/20) Family History Mother CAD (coronary artery disease) Myocardial infarction COPD (chronic obstructive pulmonary disease)Other Family history of hyperlipidemia Family history of hypertension Social History Smoking Status: Former smoker alcohol intake: never substance use type: does not use HPI HPI HPI: 73-year-old female was referred by Dr. Barbara Shook for surgical consultation regarding a screening colonoscopy and a written copy my surgical consult and recommendations will be returned to her. 2016 I assisted the patient with a colonoscopy. Follow-up at 5 years was recommended. A 4 mm polyp was identified in the rectum and was removed with cold forceps. Family history is negative for colon cancer. It is of note that she has had cardiac ablation for SVT at [facility] 2004. Monitor other medications she is on Eliquis She does get dyspneic on exertion. She has had no recent hospitalizations. No bright red blood per rectum or melena. ROS General General: Yes fatigue; No weight change, appetite, colon cancer, breast cancer or weakness HEENT HEENT: Yes eye surgery; No difficulty swallowing, eye injury, swollen glands or hoarseness Additional Details: cataracts Endo Endocrine: Yes thyroid disease; No diabetes mellitus, thyroid cancer, Hair loss, heat intolerance or cold intolerance Skin Skin: No rash or changing moles Musc Musculoskeletal: Yes arthritis and gout; No back problems, rheumatoid arthritis or joint pain Cardio Cardiovascular: Yes atrial fibrillation; No murmur, pacemaker, heart disease, high blood pressure, heart attack, heart stent, palpitations, shortness of breat with exertion or chest pain Psych Psychiatric: No depression, anxiety or hearing voices Resp Respiratory: No shortness of breath, No sleep apnea, No cough, No COPD, No asthma, No emphysema and No wheezing Gastro Gastrointestinal: No abdominal pain, No nausea or vomiting, No diarrhea, No constipation, No blood in stool, Yes acid reflux, No hemorrhoids, No ulcers, No gallbladder problem and No black,tarry stools Manas Hematologic: Yes blood thinners, No blood disorders, No bleeding, No anemia and No blood clots Additional Details: eliquis Neuro Neurologic: No numbness, No tingling and No weakness Exam Const General: cooperative, comfortable and no acute distress Nutritional Appearance: obese morbidly obese Eyes General: appearance normal, both eyes and all related structures Neck Neck: normal visual inspection Resp Effort & Inspection: normal respiratory effort Auscultation: clear to auscultation bilaterally Cardio Rate: regular rate Rhythm: regular rhythm GI Inspection: normal to inspection Palpation: soft and no hepatosplenomegaly Other: Unable to detect internal organs Skin General: no rashes or lesions noted Neuro General: patient alert and patient awake Extrem General: no calf tenderness Psych Appearance: grossly normal Assessment and Plan Assessment and Plan (1) Personal history of colonic polyps: Status: Acute Plan: I recommended the patient a surveillance colonoscopy. She is aware of the technique, benefit, risk, alternatives. We will have her hold her Eliquis 2 days preprocedure. She has had an opportunity to ask and have questions answered. We will schedule procedure at her discretion. I appreciate the ongoing opportunity of assisting with her surgical care. Copy: Dr. Barbara Ruby M.D., F.A.C.S. I have examined the patient and the H&P has been reviewed. There are no clinical changes since date of exam. Petey Ruby M.D., F.A.C.S.
[2024-01-27 07:02] VITALS: BP 149/65; PULSE 89; RESP 16; TEMP 36.1; O2SAT 98; BMI 41.3
[2024-01-27] MEDS: Lactated Ringers 1,000 ML 15 ML IV (07:04)
--- NOTE | 2024-01-27 08:53 | OP.CCLET_ITS ---
01/27/2024 Barbara Shook [address] [place] [address] Re : Colonoscopy procedure for Melonie Yuen Dear Dr. Shook This procedure was performed on Saturday, January 27, 2024. My impressions and recommendations are as follows: Impressions : - Hemorrhoids found on perianal exam. - Redundant colon. - The examination was otherwise normal. - No specimens collected. Recommendations : - Discharge patient to home. - Resume previous diet. - Continue present medications. - Repeat colonoscopy in 10 years for screening purposes. My findings are described in the full procedure note, which is enclosed. If I can be of further assistance, please feel free to contact me at Doctor phone number(s): Work: . Sincerely, Petey Ruby MD 01/27/2024 8:52:23 AM This report has been signed electronically.
--- NOTE | 2024-01-27 08:53 | OP.COLON_ITS ---
Patient Name: Melonie Yuen Procedure Date: 01/27/2024 8:10 AM Date of : 1950 Age: 73 Procedure: Colonoscopy Indications: High risk colon cancer surveillance: Personal history of colonic polyps Providers: Petey Ruby MD Referring MD: Barbara Shook Medicines: See the Anesthesia note for documentation of the administered medications Patient Profile: Last Colonoscopy: 2015. Complications: No immediate complications. Procedure: Pre-Anesthesia Assessment: - Prior to the procedure, a History and Physical was performed, and patient medications and allergies were reviewed. The patient's tolerance of previous anesthesia was also reviewed. The risks and benefits of the procedure and the sedation options and risks were discussed with the patient. All questions were answered, and informed consent was obtained. Prior Anticoagulants: The patient has taken Eliquis (apixaban), last dose was 2 days prior to procedure. ASA Grade Assessment: III - A patient with severe systemic disease. After reviewing the risks and benefits, the patient was deemed in satisfactory condition to undergo the procedure. After I obtained informed consent, the scope was passed under direct vision. Throughout the procedure, the patient's blood pressure, pulse, and oxygen saturations were monitored continuously. The Colonoscope was introduced through the anus and advanced to the terminal ileum, with identification of the appendiceal orifice and IC valve. The colonoscopy was performed with moderate difficulty due to a tortuous colon. The patient tolerated the procedure well. The quality of the bowel preparation was good. The ileocecal valve and the appendiceal orifice were photographed. Scope In: 8:22:37 AM Scope Withdrawal Time 0 hours 6 minutes 18 seconds Scope Out: 8:46:20 AM Total Procedure Duration Time 0 hours 23 minutes 43 seconds Findings: Hemorrhoids were found on perianal exam. The colon (entire examined portion) was significantly redundant. Advancing the scope required changing the patient to a supine position and using manual pressure. The exam was otherwise without abnormality. Impression: - Hemorrhoids found on perianal exam. - Redundant colon. - The examination was otherwise normal. - No specimens collected. Recommendation: - Discharge patient to home. - Resume previous diet. - Continue present medications. - Repeat colonoscopy in 10 years for screening purposes. Procedure Code(s): --- Professional --- 66362, Colonoscopy, flexible; diagnostic, including collection of specimen(s) by brushing or washing, when performed (separate procedure) CPT copyright 2021 [employer]. All rights reserved. The codes documented in this report are preliminary and upon papeterie table assembler review may be revised to meet current compliance requirements. Petey Ruby MD 01/27/2024 8:52:23 AM This report has been signed electronically. Number of Addenda: 0 Note Initiated On: 01/27/2024 8:10 AM
[2024-01-27 08:54] VITALS: BP 123/55; BP 149/65; PULSE 67; RESP 18; TEMP 36.6; O2SAT 96
[2024-01-27 08:59] VITALS: BP 128/58; BP 149/65; PULSE 74; RESP 14; O2SAT 96
[2024-01-27 09:05] VITALS: BP 130/58; BP 149/65; PULSE 71; RESP 14; O2SAT 95
[2024-01-27 09:09] VITALS: BP 134/68; BP 149/65; PULSE 74; RESP 18; TEMP 36.3; O2SAT 97
[2024-01-27 09:23] VITALS: BP 149/65
== END 2024-01-27 09:52 | disposition home or self-care (01) ==
LOC: EN 06:47 → AC 06:48
PROVIDERS: PCP Family Medicine; Referring Provider Family Medicine; Visit Provider Surgery
PROC: 0DJD8ZZ Inspection of Lower Intestinal Tract, Via Natural or Artificial Opening Endoscopic (ICD-10-PCS; CPT 45378; principal; 2024-01-27 07:55)
DX: Z12.11 Encounter for screening for malignant neoplasm of colon (principal); I48.0 Paroxysmal atrial fibrillation; E66.01 Morbid (severe) obesity due to excess calories; Z68.41 Body mass index [BMI] 40.0-44.9, adult; Q43.8 Other specified congenital malformations of intestine; I10 Essential (primary) hypertension; E78.00 Pure hypercholesterolemia, unspecified; K64.9 Unspecified hemorrhoids; Z90.49 Acquired absence of other specified parts of digestive tract; Z79.01 Long term (current) use of anticoagulants; Z79.899 Other long term (current) drug therapy; Z86.010 Personal history of colon polyps; Z87.891 Personal history of nicotine dependence
CPT/HCPCS: 45378; J7120; J2405

== ENCOUNTER → 2024-02-20 | Outpatient (CLI) | payer MEDICARE, SELFPAY ==
[2024-02-20 12:18] LABS: Absolute Lymphocyte Count 0.97 X10^3/uL (0.83-4.51); Basophil# 0.03 X10^3/uL; Basophil% 0.4 % (0-1); Eosinophil# 0.19 X10^3/uL; Eosinophils% 2.8 % (0-5); Hematocrit 41.6 % (37-47); Hemoglobin 13.8 g/dL (12.0-15.0); Lymphocyte # 0.97 X10^3/ul (0.83-4.51); Lymphocyte % 14.3 % (19-41); Mean Corp Hgb Conc 33.2 g/dL (32-36); Mean Corpuscular Hgb 33.6 pg (27.0-32.0); Mean Corpuscular Volume 101.2 fL (81-99); Mean Platelet Vol. 10.4 fl (6.2-12.0); Monocyte# 0.53 X10^3/uL; Monocyte% 7.8 % (0-10); NRBC Flagged by Analyzer 0 % (0-5); Neutrophil # 5.03 X10^3/uL (2.7-7.7); Neutrophil % 74.4 % (47-70); Platelet Count 229 K/mm3 (150-450); RBC Distribution Width CV 12.6 % (11.6-14.6); RBC Distribution Width SD 47.2 fl (35.1-43.9); Red Blood Count 4.11 M/mm3 (4.2-5.4); White Blood Count 6.8 K/mm3 (4.4-11.0)
[2024-02-20 12:45] LABS: BNP,B-Type NATRIURETIC PEPTIDE 82.9 pg/mL (0-100)
[2024-02-20 13:10] LABS: Anion Gap 4 (5-15); BUN 12 mg/dL (7-18); BUN/Creat Ratio 13.7 RATIO (10-20); Calcium,Total 9.8 mg/dL (8.5-10.1); Chloride 107 mmol/L (98-107); Creatinine, Serum 0.87 mg/dL (0.55-1.02); EST Glomerular Filtration Rate 67 mL/min (>60); Est Glom Filt Rate - Afr Amer 82 mL/min (>60); Glucose 93 mg/dL (74-106); Potassium 4.1 mmol/L (3.5-5.1); Sodium Level 139 mmol/L (136-145)
== END | disposition home or self-care (01) ==
PROVIDERS: PCP Family Medicine; Referring Provider Nurse Practitioner Gerontology; Visit Provider Nurse Practitioner Gerontology
DX: R06.09 Other forms of dyspnea (principal)
CPT/HCPCS: 36415; 80048; 83880; 85025

== ENCOUNTER → 2024-02-27 | Outpatient (CLI) | payer MEDICARE, SELFPAY | END | disposition home or self-care (01) | LOC: PSN 08:42 | PROVIDERS: PCP Family Medicine; Referring Provider Nurse Practitioner Gerontology; Visit Provider Nurse Practitioner Gerontology | DX: I48.91 Unspecified atrial fibrillation (principal) | CPT/HCPCS: 93225; 93226 ==

== ENCOUNTER → 2024-04-07 | Outpatient (CLI) | payer MEDICARE, SELFPAY ==
[2024-04-07 17:44] LABS: Absolute Lymphocyte Count 0.94 X10^3/uL (0.83-4.51); Absolute Neutrophil Count 5.1 X10^3/uL (2.0-7.7); Basophil# 0.04 X10^3/uL; Basophil% 0.6 % (0-1); Eosinophil# 0.21 X10^3/uL; Eosinophils% 3.1 % (0-5); Hematocrit 40.3 % (37-47); Hemoglobin 13.6 g/dL (12.0-15.0); Lymphocyte # 0.94 X10^3/ul (0.83-4.51); Lymphocyte % 13.9 % (19-41); Mean Corp Hgb Conc 33.7 g/dL (32-36); Mean Corpuscular Hgb 34.1 pg (27.0-32.0); Mean Platelet Vol. 10.7 fl (6.2-12.0); Monocyte# 0.47 X10^3/uL; NRBC Flagged by Analyzer 0 % (0-5); Neutrophil # 5.08 X10^3/uL (2.7-7.7); Neutrophil % 75.1 % (47-70); Platelet Count 249 K/mm3 (150-450); RBC Distribution Width SD 48.1 fl (35.1-43.9); Red Blood Count 3.99 M/mm3 (4.2-5.4); White Blood Count 6.8 K/mm3 (4.4-11.0)
[2024-04-07 18:04] LABS: AST(SGOT) 26 U/L (15-37); Alanine Aminotransfer ALT/SGPT 33 U/L (13-56); Albumin, Serum 3.8 g/dL (3.2-5.0); Alkaline Phosphatase 87 U/L (45-117); Anion Gap 8 (5-15); BUN 15 mg/dL (7-18); BUN/Creat Ratio 18.3 RATIO (10-20); CRP < 2.90 mg/L (0.0-3.0); Calcium,Total 9.9 mg/dL (8.5-10.1); Chloride 107 mmol/L (98-107); Creatinine, Serum 0.82 mg/dL (0.55-1.02); EST Glomerular Filtration Rate 73 mL/min (>60); Est Glom Filt Rate - Afr Amer 88 mL/min (>60); Free T3 1.8 pg/mL (2.18-3.98); Globulin 3.8 g/dL (2.2-4.2); Glucose 86 mg/dL (74-106); Potassium 3.7 mmol/L (3.5-5.1); Protein, Total 7.6 g/dL (6.4-8.2); Sodium Level 139 mmol/L (136-145); T4 Free Direct 1.22 ng/dL (0.76-1.46)
[2024-04-07 18:07] LABS: Erythrocyte Sedimentation Rate 19 mm/hr (0-30)
== END | disposition home or self-care (01) ==
LOC: MTLAB 13:55
PROVIDERS: PCP Family Medicine; Referring Provider Family Medicine; Visit Provider Family Medicine
DX: E03.9 Hypothyroidism, unspecified (principal); I50.43 Acute on chronic combined systolic (congestive) and diastolic (congestive) heart failure; R60.9 Edema, unspecified; M79.604 Pain in right leg; M79.605 Pain in left leg
CPT/HCPCS: 36415; 80053; 83880; 84439; 84443; 84481; 85025; 85652; 86140

== ENCOUNTER → 2024-04-15 | Outpatient (CLI) | payer MEDICARE, SELFPAY ==
--- NOTE | 2024-04-15 12:21 | BI_ITS ---
MAMMOGRAPHY - BILATERAL SCREENING REASON FOR EXAM: Female, 73 years old. Routine annual screening examination. PERTINENT HISTORY: Non-contributory. TECHNIQUE: Digital bilateral breast katherine (3D mammographic acquisition) in the CC and MLO projections. 2-D mediolateral oblique (MLO) and craniocaudad (CC) views of both breasts were obtained. CAD: Full Field Digital Mammography with Computer Added Detection was performed. COMPARISON: Comparison is made with prior study December 18, 2022 and December 14, 2021. FINDINGS: Breast Composition: There are scattered areas of fibroglandular density. There are no dominant masses or suspicious calcifications. Stable bilateral secretory calcifications. No other significant abnormalities are identified. There has been no significant change since the prior study. BI/SCRN MAMM (CAD)W/KATHERINE BILAT IMPRESSION: Stable bilateral screening mammogram. Yearly follow-up mammogram recommended. (A) ASSESSMENT CATEGORY: BIRADS Category 2: Benign. A letter regarding these results will be sent to the patient by the facility within 30 days. Approximately 10% of breast cancers are not detected by mammography. A normal mammogram should not delay biopsy of a clinically suspicious abnormality. [id number] Electronically Signed: Clark Richmond MD at 13:28 EDT ,
== END | disposition home or self-care (01) ==
LOC: OPBI 12:20
PROVIDERS: PCP Family Medicine; Referring Provider Family Medicine; Visit Provider Family Medicine
DX: Z12.31 Encounter for screening mammogram for malignant neoplasm of breast (principal)
CPT/HCPCS: 77063; 77067

== ENCOUNTER → 2024-04-23 | Outpatient (CLI) | payer MEDICARE, SELFPAY ==
--- NOTE | 2024-04-23 08:57 | VDLE_ITS ---
Reason For Study: Bilateral edema RIGHT LEFT CFV is compressible, spontaneous, phasic, CFV is compressible, spontaneous, phasic, competent and demonstrates normal competent, and demonstrates normal augmentation. augmentation. FV is compressible, spontaneous, phasic, FV is compressible, spontaneous, phasic, competent and demonstrates normal competent and demonstrates normal augmentation. augmentation. POP V is compressible, spontaneous, phasic, POP V is compressible, spontaneous, phasic, competent and demonstrates normal competent and demonstrates normal augmentation. augmentation. T/P Trunk is compressible. T/P Trunk is compressible. PTV is compressible. PTV is compressible. RT PerV is compressible. LT PerV is compressible. SFJ is INCOMPETENT and measures 0.65 cm. SFJ is competent and measures 0.57 cm. GSV proximal thigh measures 0.38 x 0.38 cm. GSV proximal thigh measures 0.54 x 0.54 cm. GSV at knee measures 0.18 x 0.15 cm. GSV at knee measures 0.46 x 0.50 cm. GSV is competent throughout. GSV is competent throughout. SSV proximal calf is competent and measures SSV proximal calf is competent and measures 0.30 x 0.32 cm. 0.23 x 0.24 cm. Procedure This is a venous duplex using B-mode, color flow and spectral Doppler. Exam performed in department. Patient was scanned in reverse Trendelenburg position during reflux assessment. VL/Venous Duplex US - Sergio Extrem Interpretation Summary Deep veins of the lower extremities are bilaterally patent and compressible seg mentally. There is no evidence of deep vein thrombosis on either side. Valvular competence appears in tact within the proximal deep venous systems bilaterally. The great saphenous veins appear bila terally patent and compressible segmentally. The right sapheno-femoral junction is incompetent . T he left sapheno- femoral junction is competent . Valvular competence appears to be intact segmen tally within the great saphenous veins bilaterally. Small saphenous veins are patent and compete nt bilaterally. Ordering Physician: Barbara Shook Referring Physician: Barbara Shook Performed By: Swetha Heller RVT
== END | disposition home or self-care (01) ==
LOC: CVS 08:55
PROVIDERS: PCP Family Medicine; Referring Provider Family Medicine; Visit Provider Family Medicine
DX: R60.0 Localized edema (principal); I87.2 Venous insufficiency (chronic) (peripheral)
CPT/HCPCS: 93970

== ENCOUNTER → 2024-04-28 | Outpatient (CLI) | payer MEDICARE, SELFPAY ==
[2024-04-28 15:24] LABS: Anion Gap 5 (5-15); BUN 17 mg/dL (7-18); BUN/Creat Ratio 21.5 RATIO (10-20); Calcium,Total 9.3 mg/dL (8.5-10.1); Chloride 109 mmol/L (98-107); Creatinine, Serum 0.79 mg/dL (0.55-1.02); EST Glomerular Filtration Rate 76 mL/min (>60); Est Glom Filt Rate - Afr Amer 92 mL/min (>60); Glucose 94 mg/dL (74-106); Potassium 4.3 mmol/L (3.5-5.1); Sodium Level 141 mmol/L (136-145)
[2024-04-28 15:25] LABS: BNP,B-Type NATRIURETIC PEPTIDE 122.6 pg/mL (0-100)
== END | disposition home or self-care (01) ==
PROVIDERS: PCP Family Medicine; Referring Provider Family Medicine; Visit Provider Family Medicine
DX: Z51.81 Encounter for therapeutic drug level monitoring (principal); I50.33 Acute on chronic diastolic (congestive) heart failure
CPT/HCPCS: 36415; 80048; 83880

== ENCOUNTER → 2024-06-21 | Outpatient (CLI) | payer MEDICARE, SELFPAY ==
[2024-06-21 13:00] LABS: Free T3 2.5 pg/mL (2.18-3.98); T4 Free Direct 1.11 ng/dL (0.76-1.46); Thyroid Stim Hormone (TSH) 0.289 uIU/mL (0.358-3.740)
== END | disposition home or self-care (01) ==
PROVIDERS: PCP Family Medicine; Referring Provider Family Medicine; Visit Provider Family Medicine
DX: E03.9 Hypothyroidism, unspecified (principal)
CPT/HCPCS: 36415; 84439; 84443; 84481

== ENCOUNTER → 2024-09-23 | Outpatient (CLI) | payer MEDICARE, SELFPAY ==
[2024-09-23 12:17] LABS: Absolute Lymphocyte Count 0.82 X10^3/uL (0.83-4.51); Absolute Neutrophil Count 4.9 X10^3/uL (2.0-7.7); Basophil# 0.04 X10^3/uL; Basophil% 0.6 % (0-1); Eosinophil# 0.21 X10^3/uL; Eosinophils% 3.3 % (0-5); Hemoglobin 12.8 g/dL (12.0-15.0); Lymphocyte # 0.82 X10^3/ul (0.83-4.51); Lymphocyte % 12.8 % (19-41); Mean Corp Hgb Conc 33.7 g/dL (32-36); Mean Corpuscular Hgb 34.5 pg (27.0-32.0); Mean Corpuscular Volume 102.4 fL (81-99); Mean Platelet Vol. 10.5 fl (6.2-12.0); Monocyte# 0.43 X10^3/uL; Monocyte% 6.7 % (0-10); NRBC Flagged by Analyzer 0 % (0-5); Neutrophil # 4.91 X10^3/uL (2.7-7.7); Neutrophil % 76.3 % (47-70); Platelet Count 217 K/mm3 (150-450); RBC Distribution Width SD 49.2 fl (35.1-43.9); Red Blood Count 3.71 M/mm3 (4.2-5.4); White Blood Count 6.4 K/mm3 (4.4-11.0)
[2024-09-23 12:56] LABS: ALB/GLOB Ratio 0.9 RATIO (0.9-2.4); AST(SGOT) 23 U/L (15-37); Alanine Aminotransfer ALT/SGPT 24 U/L (13-56); Albumin, Serum 3.5 g/dL (3.2-5.0); Alkaline Phosphatase 95 U/L (45-117); Anion Gap 5 (5-15); BUN 17 mg/dL (7-18); BUN/Creat Ratio 17.8 RATIO (10-20); Calcium,Total 9.4 mg/dL (8.5-10.1); Chloride 108 mmol/L (98-107); Creatinine, Serum 0.96 mg/dL (0.55-1.02); EST Glomerular Filtration Rate 61 mL/min (>60); Est Glom Filt Rate - Afr Amer 73 mL/min (>60); Globulin 3.8 g/dL (2.2-4.2); Glucose 101 mg/dL (74-106); Potassium 3.9 mmol/L (3.5-5.1); Protein, Total 7.3 g/dL (6.4-8.2); Sodium Level 140 mmol/L (136-145); T4 Free Direct 1.14 ng/dL (0.76-1.46)
== END | disposition home or self-care (01) ==
LOC: MTLAB 09:47
PROVIDERS: PCP Family Medicine; Referring Provider Family Medicine; Visit Provider Family Medicine
DX: E03.9 Hypothyroidism, unspecified (principal); Z51.81 Encounter for therapeutic drug level monitoring
CPT/HCPCS: 36415; 80053; 84439; 84443; 84481; 85025

== ENCOUNTER → 2024-12-15 | Outpatient (CLI) | payer MEDICARE, SELFPAY ==
[2024-12-15 12:40] LABS: Absolute Lymphocyte Count 1.02 X10^3/uL (0.83-4.51); Absolute Neutrophil Count 4.1 X10^3/uL (2.0-7.7); Basophil# 0.05 X10^3/uL; Basophil% 0.9 % (0-1); Eosinophil# 0.23 X10^3/uL; Hematocrit 41.2 % (37-47); Hemoglobin 14.2 g/dL (12.0-15.0); Lymphocyte # 1.02 X10^3/ul (0.83-4.51); Lymphocyte % 17.6 % (19-41); Mean Corp Hgb Conc 34.5 g/dL (32-36); Mean Corpuscular Hgb 34.9 pg (27.0-32.0); Mean Corpuscular Volume 101.2 fL (81-99); Mean Platelet Vol. 10.5 fl (6.2-12.0); Monocyte# 0.38 X10^3/uL; Monocyte% 6.6 % (0-10); NRBC Flagged by Analyzer 0 % (0-5); Neutrophil % 70.6 % (47-70); Platelet Count 233 K/mm3 (150-450); RBC Distribution Width CV 12.4 % (11.6-14.6); RBC Distribution Width SD 46.4 fl (35.1-43.9); Red Blood Count 4.07 M/mm3 (4.2-5.4); White Blood Count 5.8 K/mm3 (4.4-11.0)
[2024-12-15 13:31] LABS: ALB/GLOB Ratio 1.3 RATIO (0.9-2.4); AST(SGOT) 41 U/L (<=31); Alanine Aminotransfer ALT/SGPT 39 U/L (<=34); Albumin, Serum 4.1 g/dL (3.4-4.8); Alkaline Phosphatase 88 U/L (35-104); Anion Gap 10 (5-15); BUN 21 mg/dL (4-19); BUN/Creat Ratio 23.3 RATIO (10-20); Calcium,Total 9.5 mg/dL (7.6-11.0); Carbon Dioxide 24.5 mmol/L (21.0-32.0); Chloride 105 mmol/L (98-108); Creatinine, Serum 0.92 mg/dL (0.70-1.20); EST Glomerular Filtration Rate 65 (>60); Free T3 2.6 pg/mL (2.18-3.98); Globulin 3.2 g/dL (2.2-4.2); Glucose 105 mg/dL (70-99); Potassium 4.1 mmol/L (3.3-5.1); Protein, Total 7.3 g/dL (5.9-8.4); Sodium Level 140 mmol/L (133-145); Total Bilirubin 1.03 mg/dL (0.00-1.30)
== END | disposition home or self-care (01) ==
LOC: BFHLAB 09:58
PROVIDERS: PCP Family Medicine; Visit Provider Family Medicine
DX: E03.9 Hypothyroidism, unspecified (principal); I10 Essential (primary) hypertension; Z51.81 Encounter for therapeutic drug level monitoring
CPT/HCPCS: 36415; 80053; 84439; 84443; 84481; 85025

== ENCOUNTER → 2025-03-10 | Outpatient (CLI) | payer MEDICARE, SELFPAY ==
--- NOTE | 2025-03-10 12:33 | ECHOD_ITS ---
Reason For Study : DYSPNEA/SOB Procedure This was a 2D Doppler, Color Flow transthoracic echocardiogram. Exam performed in department. Left Ventricle Normal LV size. Mild concentric left ventricular hypertrophy. Left ventricular systolic function is normal. The left ventricular ejection fraction is 60 %. No regional wall motion abnormalities noted. Right Ventricle Normal RV size. Normal systolic function. Atria Normal left atrium. Normal right atrium. Mitral Valve Normal mitral valve. Mild (1+) eccentric mitral valve insufficiency. Tricuspid Valve Normal tricuspid valve. Mild (1+) tricuspid valve insufficiency. Pulmonary artery systolic pressure is 37 mmHg. Aortic Valve Trisinus/trileaflet aortic valve. Moderate focal aortic valve calcification. Peak aortic valve gradient 35 mmHg. Mean aortic valve gradient 20 mmHg. Mild to moderate aortic stenosis. Mild (1+) aortic valve insufficiency. Great Vessels Normal sized aortic root. Pericardium/Pleural No pericardial effusion. MMode/2D Measurements & Calculations LVIDd: 4.6 cm IVSd: 1.3 cm LVOT diam: 2.0 cm LVIDs: 2.8 cm LVPWd: 1.3 cm LVOT area: 3.3 cm2 FS: 38.1 % Ao root diam: 3.1 cm LAV(MOD-sp4): 48.3 ml LVAd ap4: 29.4 cm2 LVLd ap4: 7.4 cm EDV(MOD-sp4): 95.4 ml EDV(sp4-el): 98.9 ml LVAs ap4: 16.8 cm2 LVLs ap4: 6.8 cm ESV(MOD-sp4): 35.4 ml ESV(sp4-el): 35.0 ml EF(MOD-sp4): 62.9 % EF(sp4-el): 64.6 % SV(MOD-sp4): 59.9 ml SV(sp4-el): 63.9 ml LA A4 area: 17.4 cm2 SI(MOD-sp4): 26.6 ml/m2 LA dimension(2D): 4.3 cm RA A4 area: 15.6 cm2 TAPSE: 1.9 cm Doppler Measurements & Calculations MV E max annabella: 129.1 cm/sec Ao V2 max: 295.7 cm/sec AI max annabella: 413.5 cm/sec Ao max P.0 mmHg AI max P.4 mmHg Ao V2 mean: 213.3 cm/sec Ao mean P.1 mmHg AI dec slope: 209.1 cm/sec2 Ao V2 VTI: 71.4 cm AI P1/2t: 579.2 msec AV (velocity ratio): 0.33 GENNARO(I,D): 1.1 cm2 GENNARO(V,D): 0.98 cm2 LV V1 max: 88.9 cm/sec SV(LVOT): 75.9 ml TV V2 max: 278.8 cm/sec LV V1 max P.2 mmHg TV max P.1 mmHg LV V1 mean P.7 mmHg LV V1 mean: 60.5 cm/sec LV V1 VTI: 23.3 cm PA V2 max: 93.3 cm/sec TR max annabella: 221.9 cm/sec TR max P.0 mmHg ECHO/Echo Complete Interpretation Summary Normal LV size. Left ventricular systolic function is normal. The left ventricular ejection fraction is 60 %. Mild concentric left ventricular hypertrophy. Mild (1+) tricuspid valve insufficiency. Pulmonary artery systolic pressure is 37 mmHg. Mean aortic valve gradient 20 mmHg. Mild to moderate aortic stenosis. Normal left atrium. Normal right atrium. Ordering Physician: Marco Dobbs Referring Physician: ULYSSES JAMESON Performed By: Vianney Steiner RDCS and Student
--- OUTSIDE RECORDS SUMMARY | 2025-03-10 21:33 | XMS RPT_ITS | CCD ---
Author Organization [facility] Care Team Providers Care Security Software Engineer Name Role Phone Dr. Barbara Shook Primary Care Provider [phone] Dr. Barbara Shook Referring Provider Shahla CEE, COLEMAN Jamil Attending Provider Dr. Barbara Shook Primary Care Provider Dr. Barbara Shook Referring Provider [phone] GARTH Collins NPC Rocío Attending Provider Dr. Roger Azar Attending Provider Dr. Roger Azar Referring Provider Dr. Barbara Shook Primary Care Provider Dr. Barbara Shook Referring Provider Dennis PLUNKETT NP-C Rocío Attending Provider Dr. Roger Azar Attending Provider Dr. Barbara Shook Primary Care Provider Dr. Roger Azar Attending Provider Dennis PLUNKETT, DIMITRIOS-C Rocío Attending Provider Dr. Barbara Shook Referring Provider Dr. Barbara Shook DO Primary Care Provider [phone] Dr. Barbara Shook DO Attending Provider Dr. Barbara Shook DO Referring Provider Dr. Barbara Shook DO Primary Care Provider [phone] Dr. Barbara Shook DO Attending Provider Boone DO, Dr. Jimenez Referring Provider Roof LINING FELLER BLINDSTITCH-C, Marco Pérez Attending Provider Malys, Barbara Primary Care Unavailable Roof LINING FELLER BLINDSTITCH, aMrco Pérez Attending Unavailable Roof LINING FELLER BLINDSTITCH, Marco Pérez Referring Unavailable Malys, Barbara Referring Unavailable Malys, Barbara Attending Unavailable Malys, Barbara Primary Care Unavailable Malys, Barbara Referring Unavailable Malys, Barbara Attending Unavailable Malys, Barbara Primary Care Unavailable Malys, Barbara Referring Unavailable Malys, Barbara Attending Unavailable Malys, Barbara Primary Care Unavailable Malys, Barbara Primary Care Unavailable Malys, Barbara Attending Unavailable Malys, Barbara Referring Unavailable Malys, Barbara Primary Care Unavailable Malys, Barbara Attending Unavailable Malys, Barbara Referring Unavailable Malys, Barbara Primary Care Unavailable Malys, Barbara Attending Unavailable Malys, Barbara Referring Unavailable Malys, Barbara Primary Care Unavailable Malys, Barbara Attending Unavailable Malys, Barbara Referring Unavailable Malys, Barbara Primary Care Unavailable Roof LINING FELLER BLINDSTITCH, Marco Pérez Attending Unavailable Doe, Ney Attending Unavailable Malys, Barbara Primary Care Unavailable Malys, Barbara Referring Unavailable Allergies Allergy Classification Reported Allergen(s) Allergy Type Date of Onset Reaction(s) Facility (10 sources) Cephalexin Drug Allergy 08-27-20 21 Unknown [facility] (10 sources) Clarithromycin Drug Allergy 08-27-20 21 Unknown [facility] (10 sources) Codeine Drug Allergy 08-27-20 21 Nausea/Vom/[facility] (10 sources) Erythromycin Drug Allergy 08-27-20 21 Unknown [facility] (10 sources) fentaNYL Drug Allergy 08-27-20 21 Rash [facility] (10 sources) Morphine Drug Allergy 08-27-20 21 Nausea/Vom/[facility] (11 sources) Penicillins; Translations: [Penicillins] Allergy to substance 08-27-20 21 Unknown [facility] (10 sources) Pravastatin Drug Allergy 08-27-20 21 Unknown [facility] (10 sources) Simvastatin Drug Allergy 08-27-20 21 Unknown [facility] (10 sources) Anesthetics - Amide Type - Select A Propensity to adverse reactions 08-27-20 21 Other [facility] (11 sources) Anesthetics - Faby Type- Parabens; Translations: [Anesthetics - Faby Type- Parabens] Propensity to adverse reactions 08-27-20 Other [facility] (1 source) Cephalexin Drug Allergy 02-01-20 [facility] Rep[facility] (1 source) Clarithromycin Drug Allergy 02-01-20 [facility] (1 source) Codeine Drug Allergy 02-01-20 [facility] (1 source) Erythromycin Drug Allergy 02-01-20 [facility] (1 source) fentaNYL Drug Allergy 02-01-20 [facility] (1 source) Morphine Drug Allergy 02-01-20 [facility] (1 source) Pravastatin Drug Allergy 02-01-20 [facility] (1 source) Simvastatin Drug Allergy 02-01-20 [facility] (1 source) Anesthetics - Amide Type - Select A Drug allergy (disorder) 02-01-20 [facility] Rep[facility] Medications Current Medications Medication Drug Class(es) Dates Sig (Normalized) Sig (Original) cholecalciferol 0.125 mg oral capsule (19 sources) Vitamin D Start: 12-26-2021 take 1 capsule by mouth once daily Cholecalciferol (Vitamin D3) 125 mcg (5,000 unit) capsule Active 125 ug PO DAILY December 26, 2021 12:00am Start: 11-16-2018 End: 04-12-2020 take 1 tablet by mouth every week Cholecalciferol (Vitamin D3) 50,000 unit tablet Discontinued [id number] U PO EVERY WEEK November 16, 2018 1:00am April 12, 2020 3:10pm estradiol 0.5 mg oral tablet (20 sources) Estrogen Start: 02-22-2021 take 1 tablet by mouth once daily Estradiol 0.5 mg tablet Active 0.5 mg PO DAILY February 22, 2021 12:00am off 5 days; repeat cycle Start: 11-13-2017 End: 02-22-2021 Estradiol 0.1 mg/24 hr patch semiweekly Discontinued 1 NMA TD TWICE A WEEK November 13, 2017 1:00am February 22, 2021 2:05pm Start: 11-13-2017 End: 02-22-2021 apply 1 dose transdermal route two times weekly Estradiol Discontinued 1 PATCH TD TWICE A WEEK November 13, 2017 1:00am February 22, 2021 2:05pm estrogens, esterified (care home) 0.625 mg / methylTESTOSTERone 1.25 mg oral tablet (10 sources) Androgen Start: 02-22-2021 take 0.625-1.25 mg by mouth once daily Estrogens-Methyltestosterone 0.625-1.25 mg tablet Active 0.25 {tbl} PO DAILY February 22, 2021 12:00am Start: 02-22-2021 take 1 tablet by viji th once daily Estrogens-Methyltestosterone Active 1 TA BLET PO DAILY February 22, 2021 12:00am FLUoxetine 20 mg oral capsule (20 sources) Serotonin Reuptake Inhibitor Start: 02-20-2024 take 1 capsule by mouth once daily Fluoxetine 20 mg capsule Active 20 mg PO daily February 20, 2024 12:00am Start: 12-26-2021 End: 02-20-2024 Fluoxetine (Prozac) 40 mg ca psule Discontinued 20 mg PO DAILY December 26, 2021 12:56pm February 20, 2024 9:55am Start: 04-12-2020 End: 12-26-2021 take 1 capsule by mouth once daily Fluoxetine (Prozac) 40 mg capsule Discontinued 40 mg PO DAILY April 12, 2020 12:00am December 26, 2021 12:56pm furosemide 20 mg oral tablet (5 sources) Loop Diuretic Start: 01-31-2025 take 1 tablet by mouth once daily Furosemide 20 mg tablet Active 20 mg PO DAILY January 31, 2025 3:21pm Start: 05-25-2024 End: 01-31-2025 take 2 tablets by mouth once daily Furosemide 20 mg tablet Discontinued 40 mg PO DAILY May 25, 2024 11:28am January 31, 2025 3:21pm Start: 05-25-2024 End: 05-25-2024 take 1 tablet by mouth once daily Furosemide 20 mg tablet Discontinued 20 mg PO DAILY May 25, 2024 12:00am May 25, 2024 11:28am levocetirizine dihydrochloride 5 mg oral tablet (10 sources) Histamine-1 Receptor Antagonist Start: 09-27-2020 take 1 tablet by mouth once daily Levocetirizine (Xyzal) 5 mg tablet Active 5 mg PO DAILY September 27, 2020 1:00am levothyroxine sodium 0.112 mg oral tablet (20 sources) l-Thyroxine Start: 01-31-2025 take 1 tablet by mouth once daily in the morning Levothyroxine 112 mcg tablet Active 112 ug PO EVERY MORNING January 31, 2025 12:00am Start: 02-20-2024 End: 01-31-2025 take 1 tablet by mouth once daily Levothyroxine 125 mcg tablet Discontinued 125 ug PO daily February 20, 2024 12:00am January 31, 2025 3:20pm Start: 12-26-2021 End: 02-20-2024 Levothyroxine 137 mcg tablet Discontinued 125 ug PO DAILY December 26, 2021 12:56pm February 20, 2024 9:56am Start: 12-26-2021 take 125 ug by mouth once leighton y Levothyroxine Active 125 MCG PO DAILY December 26, 2021 12:56pm Start: 11-16-2018 End: 12-26-2021 take 1 tablet by mouth once daily Levothyroxine 137 mcg tablet Discontinued 137 ug PO DAILY November 16, 2018 1:00am December 26, 2021 12:56pm Start: 11-13-2017 End: 11-16-2018 take 1 capsule by mouth once daily Levothyroxine 112 mcg capsule Discontinued 112 ug PO daily November 13, 2017 1:00am November 16, 2018 2:05pm Start: 06-01-2014 End: 11-17-2017 Synthroid Discontinued David sahni 2013 9:41am November 17, 2017 2:48pm Start: 06-01-2014 End: 11-17-2017 Synthroid Discontinued David sahni 2013 11:00pm November 17, 2017 1:48pm Start: 06-01-2014 End: 11-17-2017 Synthroid Discontinued [facility] 2013 12:00am November 17, 2017 2:48pm liothyronine sodium 0.005 mg oral tablet (2 sources) l-Triiodothyronine Start: 05-25-2024 take 1 tablet by mouth once daily Liothyronine 5 mcg tablet Active 5 ug PO DAILY May 25, 2024 12:00am 24 hr metoprolol succinate 25 mg extended release oral tablet (20 sources) beta-Adrenergic Candi Start: 03-09-2024 End: 06-29-2024 take 2 tablets by mouth once daily Metoprolol Succinate 25 mg tablet extended release 24 hr Active 12.5 mg PO DAILY June 29, 2024 11:16am Start: 05-29-2020 End: 09-27-2020 take 1 tablet by mouth once daily Metoprolol Succinate 25 MG tablet extended release 24 hr Discontinued 25 mg PO DAILY May 29, 2020 12:00am September 27, 2020 2:59pm Start: 04-27-2020 End: 05-17-2020 take 2 tablets by mouth once daily Metoprolol Succinate 25 mg tablet extended release 24 hr Discontinued 12.5 mg PO DAILY April 27, 2020 11:02am May 17, 2020 4:43pm Start: 04-27-2020 End: 05-17-2020 take 12.5 mg by mouth once daily Metoprolol Succinate Discontinued 12.5 MG PO DAILY April 27, 2020 11:02am May 17, 2020 4:43pm Start: 06-01-2014 End: 04-27-2020 take 1 tablet by mouth once daily Metoprolol Succinate 25 mg tablet extended release 24 hr Discontinued 25 mg PO DAILY January 11, 2020 3:32pm April 27, 2020 11:05am rosuvastatin calcium 5 mg oral tablet (20 sources) HMG-CoA Reductase Inhibitor Start: 11-17-2017 take 1 tablet by mouth once daily Rosuvastatin (Crestor) 5 mg tablet Active 5 mg PO daily November 17, 2017 2:48pm Start: 11-13-2017 End: 11-17-2017 take 1 tablet by mouth every other day Rosuvastatin (Crestor) 5 mg tablet Discontinued 5 mg PO .QOD November 13, 2017 1:00am November 17, 2017 2:48pm Start: 06-01-2014 End: 11-17-2017 [facility] 9:41am November 17, 2017 2:48pm Start: 06-01-2014 End: 11-17-2017 [facility]rest[facility] 11:00pm November 17, 2017 1:48pm Start: 06-01-2014 End: 11-17-2017 [facility]rest[facility] 12:00am November 17, 2017 2:48pm Completed/Discontinued Medications Medication Drug Class(es) Dates Sig (Normalized) Sig (Original) apixaban 5 mg oral tablet (20 sources) Factor Xa Inhibitor Start: 11-26-2019 End: 12-02-2024 take 1 tablet by mouth twice daily Apixaban (Eliquis) 5 mg tablet Discontinued 0 .ROUTE .COMPLEX 60 January 09, 2023 11:22am April 08, 2023 10:42am TAKE 1 TABLET BY MOUTH TWICE A DAY aspirin 81 mg delayed release oral tablet (10 sources) Platelet Aggregation Inhibitor, Nonsteroidal Anti-inflammatory Drug Start: 11-13-2017 End: 11-26-2019 Aspirin (Adult Low Dose Aspirin) 81 mg tablet,delayed release (DR/EC) Discontinued 81 mg PO daily November 13, 2017 1:00am November 26, 2019 12:57pm cetirizine hydrochloride 10 mg oral tablet (10 sources) Histamine-1 Receptor Antagonist Start: 06-01-2014 End: 11-17-2017 take 1 tablet by mouth once daily Cetirizine 10 MG tablet Discontinued 10 mg PO DAILY June 01, 2014 12:00am November 17, 2017 2:47pm lisinopril 5 mg oral tablet (9 sources) Angiotensin Converting Enzyme Inhibitor Start: 12-26-2021 End: 04-08-2023 take 1 tablet by mouth once daily Lisinopril 5 mg tablet Discontinued 5 mg PO DAILY December 26, 2021 12:00am April 08, 2023 10:41am sertraline 100 mg oral tablet (20 sources) Serotonin Reuptake Inhibitor Start: 11-13-2017 End: 04-12-2020 take 1 tablet by mouth once daily Sertraline (Zoloft) 100 mg tablet Discontinued 100 mg PO daily November 13, 2017 1:00am April 12, 2020 3:09pm Start: 06-01-2014 End: 11-17-2017 Zoloft Discontinued [facility] 2013 9:41am November 17, 2017 2:48pm Start: 06-01-2014 End: 11-17-2017 Zoloft Discontinued [facility]em[facility] r 2013 11:00pm November 17, 2017 1:48pm Start: 06-01-2014 End: 11-17-2017 Zoloft Discontinued Septem[facility] r 2013 12:00am November 17, 2017 2:48pm Problems Active Problems Problem Classification Problem Date Documented Date Episodic/Chronic Allergic reactions (10 sources) Allergic reaction to drug; Translations: [Allergy, unspecified, initial encounter] 08-15-2021 Episodic Cardiac dysrhythmias (20 sources) Atrial fibrillation; Translations: [Unspecified atrial fibrillation] Onset: 01-31-2025 Chronic Comment on above: s/p RFA Cardiac dysrhythmias (11 sources) Palpitations; Translations: [Palpitations] 11-13-2017 Episodic Disorders of lipid metabolism (16 sources) Pure hypercholesterolemia; Translations: [Pure hypercholesterolemia, unspecified] Chronic Essential hypertension (14 sources) Essential hypertension; Translations: [Essential (primary) hypertension] Chronic Heart valve disorders (20 sources) Mitral valve prolapse; Translations: [Nonrheumatic mitral (valve) prolapse] Onset: 01-31-2025 05-30-2020 Chronic Nonspecific chest pain (10 sources) Chest pain; Translations: [Chest pain, unspecified] 06-02-2014 Episodic Other and unspecified benign neoplasm (2 sources) History of polyp of colon; Translations: [History of colonic polyps] 01-13-2024 Episodic Other circulatory disease (10 sources) Elevated blood-pressure reading without diagnosis of hypertension; Translations: [Elevated blood-pressure reading, without diagnosis of hypertension] 08-27-2021 Episodic Other circulatory disease (1 source) Elevated blood-pressure reading, without diagnosis of hypertension; Translations: [Elevated blood pressure reading without diagnosis of hypertension] Episodic Other lower respiratory disease (3 sources) Dyspnea on exertion; Translations: [Other forms of dyspnea] 02-20-2024 Episodic Other lower respiratory disease (2 sources) Other forms of dyspnea; Translations: [Other forms of dyspnea] Onset: 01-31-2025 Episodic Residual codes; unclassified (5 sources) Obstructive sleep apnea syndrome; Translations: [Obstructive sleep apnea (adult) (pediatric)] 05-30-2023 Chronic Residual codes; unclassified (5 sources) Hypersomnia; Translations: [Hypersomnia, unspecified] 05-05-2023 Chronic Residual codes; unclassified (2 sources) Other specified postprocedural states; Translations: [Other specified postprocedural states] Onset: 01-31-2025 Episodic Skin and subcutaneous tissue infections (2 sources) Cellulitis; Translations: [Cellulitis, unspecified] 05-25-2024 Episodic Thyroid disorders (1 source) Hypothyroidism, unspecified; Translations: [Hypothyroidism, unspecified] Onset: 12-21-2024 Chronic Unclassified (1 source) I48.0 - Paroxysmal atrial fibrillation Past or Other Problems Problem Classification Problem Date Documented Date Episodic/Chronic Other aftercare (1 source) Encounter for therapeutic drug level monitoring; Translations: [Encounter for therapeutic drug level monitoring] Onset: 05-25-2024 Episodic Other screening for suspected conditions (not mental disorders or infectious disease) (1 source) Encounter for screening mammogram for malignant neoplasm of breast; Translations: [Encounter for screening mammogram for malignant neoplasm of breast] Onset: 05-24-2024 Episodic Residual codes; unclassified (11 sources) History of radiofrequency ablation operation for arrhythmia; Translations: [Other specified postprocedural states] Onset: 06-15-2020 12-05-2020 Episodic Comment on above: Atrial Fibrillation @ [facility] 06/23/20; For SVT 12/12/02 Residual codes; unclassified (1 source) Localized edema; Translations: [Localized edema] Onset: 05-25-2024 Episodic Results Test Name Value Interpretation Reference Range Facility [facility] 02-04-2025 CNPN Telephone (AGCARDPOB ) DAE LORD ([id number]) 1950 F Date Time Provider Department 02/04/25 YOLIS KU AGCARDRAMON During your visit today, we recorded the following information about you: Krystle Lyn 02/04/2025 4:59 PM Signed Received referral from [facility] Pt scheduled 03/14 with No message left, letter sent Krystle Lyn Allergies As of Date: 02/04/2025 Noted Allergy Reaction BIAXIN (CLARITHROMYCIN) 08/05/2005 4 - Hives CODEINE 08/05/2005 8 - GI Upset DEMEROL (MEPERIDINE HCL) 08/05/2005 14 - Other: See Comments Comments: Feels awful, dizziness ERYTHROMYCIN BASE 08/05/2005 4 - Hives FENTANYL 08/13/2021 11 - Vomiting KEFLEX (CEPHALEXIN) 06/08/2020 8 - GI Upset MORPHINE 08/05/2005 8 - GI Upset PENICILLINS 08/05/2005 14 - Other: See Comments Comments: Patient does not recall if she ever had reaction to PCN PRAVASTATIN 06/08/2020 17 - Myalgia SIMVASTATIN 06/08/2020 17 - Myalgia Date Reviewed: 08/13/2021 Reviewed by: Micheline Diaz APRN.SOIL SCIENCE TECHNICAL OFFICER - Fully Assessed Prescriptions as of 02/04/2025 - Estradiol (ESTRACE) 0.5 mg tablet Take 0.5 mg by mouth once daily. - FLUoxetine HCl (PROZAC) 40 mg capsule Take 40 mg by mouth once daily. - levocetirizine (XYZAL) 5 mg tablet Take 5 mg by mouth once daily. - esterified estrogens-methylTESTOST ERone (ESTRATEST HS) 0.625-1.25 mg per tablet TAKE 1/4 TABLET ORALLY DAILY - levothyroxine (SYNTHROID) 137 mcg tablet 1 TABLET ORALLY DAILY IN THE MORNING ON AN EMPTY STOMACH - apixaban (ELIQUIS) 5 mg tab(s) Take 5 mg by mouth twice daily. - rosuvastatin (CRESTOR) 5 mg tablet Take 5 mg by mouth once daily. Problem List As Of Date 02/04/2025 Noted Resolved CHOLECYSTITIS SEE ALSO GALLBLADDER CHRONIC WI*08/05/2005 ELEV TRANSAMINASE/LDH [R74.01, R74.02] 12/02/2007 Screening for intestinal cancer [Z12.10] 03/14/2016 Obesity, Class III, BMI >= 40 [E66.813] 06/15/2020 Persistent atrial fibrillation (HCC) [I48.19] At risk for stroke [Z91.89] Anticoagulant long-term use [Z79.01] Adverse effect of beta-candi [T44.7X5A] Atrial tachycardia, paroxysmal (HCC) [I47.19] Lightheadedness [R42] Dizziness [R42] Bradycardia [R00.1] Status post catheter ablation of atrial fibrill* Encounter Status:Closed by KRYSTLE LYN on 02/04/25 [facility] Cardiology Visit Reporton Cardiology Visit Report [facility] [address] [place] [address] OFFICE VISIT Date of Service: 01/31/25 MR#: [id number] Acct: [id number] Name: DAE LORD Rep #: [id number] : 1950 Provider: HECTOR duarte Age/Sex: 74/F Location: [facility] [place].[facility] Status: Signed HPI HPI History of Present Illness Details: This is a 74-year-old white female who presents today for outpatient cardiovascular follow-up visit. She has a history of PSVT status post EPS/RFA as well as PACs/PVCs and PAF status post EPS/RFA (June 2020 at [facility]). She unfortunately continues to have atrial fibrillation she had considered going to see an EP physician for repeat ablation but she is decided not to. She recently had cellulitis and is recovering from that. She denies chest, arm, jaw, or neck discomfort. She states palpitations that she describes as fast and skipping. She denies bilateral lower extremity edema. She denies claudication. She acknowledges shortness breath with activity and shortness of breath at rest. She denies orthopnea, cough, or PND. She denies chronic cough. She denies significant, sudden weight gain. She acknowledges dizziness. She denies lightheadedness, near-syncope, or syncope. She denies blood in urine, blood in stool, or epistaxis. He denies fever with chills. She denies myalgia. She denies fatigue. Her exercise level has remained stable. Intake Vital Signs 05/25/24 11:08 01/31/25 15:17 Height 5 ft 6 in 5 ft 6 in Weight: 256 lb 5 oz 264 lb BMI 41.3 42.6 BP 148/72 H 169/72 H Blood Pressure Location Lt brachial Lt brachial Position Sitting Sitting Respiration 16 18 Pulse 73 74 Pulse Source Monitor NIBP Intake Visit Reasons: 8 M FU Merchandise Flow Team Member Required: No Accompanied by: Is patient in pain?: No Allergies fentanyl Allergy (Verified 01/31/25 15:19) Rash Penicillins Allergy (Verified 01/31/25 15:19) Unknown cephalexin (From Keflex) Adverse Reaction (Severe, Verified 01/31/25 15:19) Unknown clarithromycin (From Biaxin) Adverse Reaction (Severe, Verified 01/31/25 15:19) Unknown erythromycin base Adverse Reaction (Severe, Verified 01/31/25 15:19) Unknown pravastatin (From Pravachol) Adverse Reaction (Severe, Verified 01/31/25 15:19) Unknown simvastatin Adverse Reaction (Severe, Verified 01/31/25 15:19) Unknown Anesthetics - Amide Type - Select A (Anesthetics - Amide Type) Adverse Reaction (Verified 01/31/25 15:19) Other Anesthetics - Faby Type- Parabens (Anesthetics - Faby Type) Adverse Reaction (Verified 01/31/25 15:19) Other codeine Adverse Reaction (Verified 01/31/25 15:19) Nausea/Vom/Diarrhea morphine Adverse Reaction (Verified 01/31/25 15:19) Nausea/Vom/Diarrhea Medications ???Medication ???Instructions ???Recorded ???Confirmed ???Type rosuvastatin 5 mg tablet (Crestor) 5 mg PO QDAY 11/17/17 01/31/25 H istory levocetirizine 5 mg tablet (Xyzal) 5 mg PO DAILY 09/27/20 01/31/25 History esterified 0.25 tab PO DAILY 02/22/21 5 History estrogens-methyltestost erone 0.625 mg-1.25 mg tablet estradiol 0.5 mg tablet 0.5 mg PO DAILY 02/22/21 01/31/25 History cholecalciferol (vitamin D3) 125 125 mcg PO DAILY 12/26/21 01/31/25 History mcg (5,000 unit) capsule fluoxetine 20 mg capsule 20 mg PO QDAY 02/20/24 01/31/25 Hi story liothyronine 5 mcg tablet 5 mcg PO DAILY Thyroid issues 05/1601/31/25 History metoprolol succinate 25 mg 12.5 mg (1/2 x 25 mg) PO DAILY #45 06/29/24 01/31/25 Rx tablet,extended release 24 hr TABLETS apixaban 5 mg tablet (Eliquis) 5 mg PO BID #180 TABLETS 12/02/24 01/31/25 Rx furosemide 20 mg tablet 20 mg PO DAILY Water retention 01/31/25 History levothyroxine 112 mcg tablet 112 mcg PO QAM 01/31/25 01/31/25 H istory Ejection fraction %: 60 Have you fallen in the past year?: No [facility] Medical History Cellulitis Wears glasses Wears dentures Depression Thyroid disease Gout Excessive bleeding Blackout PONV (postoperative nausea and vomiting) Shortness of breath on exertion Seasonal allergies History of echocardiogram History of irregular heartbeat History of atrial fibrillation Cardiology follow-up encounter Essential hypertension SVT (supraventricular tachycardia) Nonrheumatic aortic (valve) stenosis with insufficiency History of cardioversion ( 05/30/20) Nonrheumatic mitral (valve) prolapse Pure hypercholesterolemia Ectopic atrial tachycardia Premature atrial contraction Mitral valve prolapse Premature ventricular contractions Paroxysmal supraventricular tachycardia by electrocardiogram (ECG) Hyperlipidemia Paroxysmal atrial fibrillation Palpitations Surgical History ... Normal [facility] Absolute lymphocyte countOrd ered By: Barbara Shook on 12-15-2024 Lymphocytes Auto (Unsp spec) [#/Vol] 1.02 10*3/uL 0.83-4.51 [facility] Absolute neutrophil countOrd ered By: Barbara Shook on 12-15-2024 Neutrophils (Bld) [#/Vol] 4.1 10*3/uL 2.0-7.7 [facility] Anion gap in Serum or Plasma Ordered By: Barbara Shook on 12-15-2024 Anion gap [Moles/Vol] 10 mmol/L 5-15 [facility] Automated lymphocyte count a s percentage of total leukocytesOrdered By: Barbara Shook on 12-15-2024 Lymphocytes/100 WBC Auto (Unsp spec) 17.6 % Low 19-41 [facility] BUN/creatinine ratioOrdered By: Barbara Shook on 12-15-2024 Urea nitrogen/Creatinine [Mass ratio] 23.3 mg/mg High 10-20 [facility] Basophil percentageOrdered B y: Barbara Shook on 12-15-2024 Basophils/100 WBC (Bld) 0.9 % 0-1 [facility] Bilirubin, totalOrdered By: Barbara Shook on 12-15-2024 Bilirubin [Mass/Vol] 1.03 mg/dL 0.00-1.[address] [facility] CBC W/Diff, Automatedon Absolute Lymph 1.02 X10 3/uL Normal 0.83-4.51 [facility] Comment on above: Performed By: #### L 100.0100, L501.77616, L500.4050, L501.9520, L506.0400 #### [facility] Laboratory [address] [place], [address] Absolute Neut 4.1 X10 3/uL Normal 2.0-7.7 [facility] Comment on above: Performed By: #### L 100.0100, L501.95321, L500.4050, L501.9520, L506.0400 #### [facility] [address] [place], [address] Basophils/100 WBC (Bld) 0.9 % Normal 0-1 [facility] Comment on above: Performed By: #### L 100.0100, L501.62908, L500.4050, L501.9520, L506.0400 #### [facility] [address] [place], [address] Eosinophils/100 WBC (Bld) 4.0 % Normal 0-5 [facility] Comment on above: Performed By: #### L 100.0100, L501.66147, L500.4050, L501.9520, L506.0400 #### [facility] [address] [place], [address] Erythrocyte distribution width (RBC) [Ratio] 12.4 % Normal 11.6-14.6 [facility] Comment on above: Performed By: #### L 100.0100, L501.39094, L500.4050, L501.9520, L506.0400 #### [facility] [address] [place], [address] Hematocrit (Bld) [Volume fraction] 41.2 % Normal 37-47 [facility] Comment on above: Performed By: #### L 100.0100, L501.86309, L500.4050, L501.9520, L506.0400 #### [facility] [address] [place], [address] Hemoglobin (Bld) [Mass/Vol] 14.2 g/dL Normal 12.0-15.0 [facility] Comment on above: Performed By: #### L 100.0100, L501.75070, L500.4050, L501.9520, L506.0400 #### [facility] [address] [place], [address] IG% 0.300 Normal 0.0-0.9 [facility] Comment on above: Result Comment: IG% - Immature Granulocytes (promyelocytes, myelocytes and metamyelocytes) > 1% indicates that a LEFT SHIFT is Present. Performed By: #### L 100.0100, L501.27651, L500.4050, L501.9520, L506.0400 #### [facility] [address] [place], [address] Lymphocytes/100 WBC (Bld) 17.6 % Low 19-41 [facility] Comment on above: Performed By: #### L 100.0100, L501.95721, L500.4050, L501.9520, L506.0400 #### [facility] [address] [place], [address] MCH (RBC) [Entitic mass] 34.9 pg High 27.0-32.0 [facility] Comment on above: Performed By: #### L 100.0100, L501.64660, L500.4050, L501.9520, L506.0400 #### [facility] [address] [place], [address] MCHC (RBC) [Mass/Vol] 34.5 g/dL Normal 32-36 [facility] Comment on above: Performed By: #### L 100.0100, L501.97391, L500.4050, L501.9520, L506.0400 #### [facility] [address] [place] [place], [address] MCV (RBC) [Entitic vol] 101.2 fL High 81-99 [facility] Comment on above: Performed By: #### L 100.0100, L501.54495, L500.4050, L501.9520, L506.0400 #### [facility] [address] [place], [address] Monocytes/100 WBC (Bld) 6.6 % Normal 0-10 [facility] Comment on above: Performed By: #### L 100.0100, L501.77489, L500.4050, L501.9520, L506.0400 #### [facility] [address] [place], [address] Neutrophils/100 WBC (Bld) 70.6 % High 47-70 [facility] Comment on above: Performed By: #### L 100.0100, L501.30546, L500.4050, L501.9520, L506.0400 #### [facility] [address] [place], [address] Nucleated RBC (Bld) [#/Vol] 0 10*3/uL Normal 0-5 [facility] Comment on above: Performed By: #### L 100.0100, L501.49760, L500.4050, L501.9520, L506.0400 #### [facility] [address] [place], [address] Platelet mean volume (Bld) [Entitic vol] 10.5 fL Normal 6.2-12.0 [facility] Comment on above: Performed By: #### L 100.0100, L501.34579, L500.4050, L501.9520, L506.0400 #### [facility] [address] [place], [address] Platelets (Bld) [#/Vol] 233 10*3/uL Normal 150-450 [facility] Comment on above: Performed By: #### L 100.0100, L501.04461, L500.4050, L501.9520, L506.0400 #### [facility] [address] [place], [address] RBC (Bld) [#/Vol] 4.07 10*6/uL Low 4.2-5.4 [facility] Comment on above: Performed By: #### L 100.0100, L501.92269, L500.4050, L501.9520, L506.0400 #### [facility] [address] [place], [address] RDW SD 46.4 fl High 35.1-43.9 [facility] Comment on above: Performed By: #### L 100.0100, L501.34937, L500.4050, L501.9520, L506.0400 #### [facility] [address] [place], [address] WBC (Bld) [#/Vol] 5.8 10*3/uL Normal 4.4-11.0 [facility] Comment on above: Performed By: #### L 100.0100, L501.11464, L500.4050, L501.9520, L506.0400 #### [facility] [address] [place], [address] Carbon dioxide, total [Moles /volume] in Central venous bloodOrdered By: Barbara Shook on 12-15-2024 CO2 [Moles/Vol] 24.5 mmol/L 21.0-32.0 [facility] Chloride assayOrdered By: Kaitlynn Shook on 12-15-2024 Chloride [Moles/Vol] 105 mmol/L 98-[address] [facility] Comprehensive Metabolic Prof ilon 12-15-2024 Albumin [Mass/Vol] 4.1 g/dL Normal 3.4-4.8 [facility] Comment on above: Performed By: #### L 100.0100, L501.98013, L500.4050, L501.9520, L506.0400 #### [facility] [address] [place], [address] Albumin/Globulin [Mass ratio] 1.3 {ratio} Normal 0.9-2.4 [facility] Comment on above: Performed By: #### L 100.0100, L501.07436, L500.4050, L501.9520, L506.0400 #### [facility] [address] [place], [address] ALK PHOS 88 U/L Normal 35-104 [facility] Comment on above: Performed By: #### L 100.0100, L501.03056, L500.4050, L501.9520, L506.0400 #### [facility] [address] [place], [address] ALT [Catalytic activity/Vol] 39 U/L High <=34 [facility] Comment on above: Performed By: #### L 100.0100, L501.14073, L500.4050, L501.9520, L506.0400 #### [facility] [address] [place], [address] AST [Catalytic activity/Vol] 41 U/L High <=31 [facility] Comment on above: Performed By: #### L 100.0100, L501.09506, L500.4050, L501.9520, L506.0400 #### [facility] [address] [place], [address] Bilirubin [Mass/Vol] 1.03 mg/dL Normal 0.00-1.[address] [facility] Comment on above: Performed By: #### L 100.0100, L501.02126, L500.4050, L501.9520, L506.0400 #### [facility] [address] [place], [address] BUN/CRE 23.3 RATIO High 10-20 [facility] Comment on above: Performed By: #### L 100.0100, L501.80661, L500.4050, L501.9520, L506.0400 #### [facility] [address] [place], [address] Calcium [Mass/Vol] 9.5 mg/dL Normal 7.6-11.0 [facility] Comment on above: Performed By: #### L 100.0100, L501.86007, L500.4050, L501.9520, L506.0400 #### [facility] [address] [place], [address] Chloride [Moles/Vol] 105 mmol/L Normal 98-[address] [facility] Comment on above: Performed By: #### L 100.0100, L501.11620, L500.4050, L501.9520, L506.0400 #### [facility] [address] [place], [address] CO2 [Moles/Vol] 24.5 mmol/L Normal 21.0-32.0 [facility] Comment on above: Performed By: #### L 100.0100, L501.56801, L500.4050, L501.9520, L506.0400 #### [facility] [address] [place], [address] Creatinine [Mass/Vol] 0.92 mg/dL Normal 0.70-1.20 [facility] Comment on above: Performed By: #### L 100.0100, L501.06977, L500.4050, L501.9520, L506.0400 #### [facility] [address] [place], [address] GAP 10 Normal 5-15 [facility] Comment on above: Performed By: #### L 100.0100, L501.72135, L500.4050, L501.9520, L506.0400 #### [facility] [address] [place], [address] GFR/1.73 sq M.predicted among non-blacks MDRD (S/P/Bld) [Vol rate/Area] 65 mL/min/{1.73_m2} Normal >60 [facility] Comment on above: Result Comment: mL/m in/1.73m2 CKD-EPI Creatinine Equation (2020) Performed By: #### L 100.0100, L501.47860, L500.4050, L501.9520, L506.0400 #### [facility] [address] [place], [address] Globulin (S) [Mass/Vol] 3.2 g/dL Normal 2.2-4.2 [facility] Comment on above: Performed By: #### L 100.0100, L501.93363, L500.4050, L501.9520, L506.0400 #### [facility] [address] [place], [address] Glucose [Mass/Vol] 105 mg/dL High 70-99 [facility] Comment on above: Performed By: #### L 100.0100, L501.32158, L500.4050, L501.9520, L506.0400 #### [facility] [address] [place], [address] Potassium [Moles/Vol] 4.1 mmol/L Normal 3.3-5.1 [facility] Comment on above: Performed By: #### L 100.0100, L501.92508, L500.4050, L501.9520, L506.0400 #### [facility] [address] [place], [address] Sodium [Moles/Vol] 140 mmol/L Normal 133-145 [facility] Comment on above: Performed By: #### L 100.0100, L501.63366, L500.4050, L501.9520, L506.0400 #### [facility] [address] [place], [address] T PROT 7.3 g/dL Normal 5.9-8.4 [facility] Comment on above: Performed By: #### L 100.0100, L501.80221, L500.4050, L501.9520, L506.0400 #### [facility] [address] [place], [address] Urea nitrogen [Mass/Vol] 21 mg/dL High 4-19 [facility] Comment on above: Performed By: #### L 100.0100, L501.89603, L500.4050, L501.9520, L506.0400 #### [facility] [address] [place], [address] Eosinophil percentageOrdered By: Barbara Shook on 12-15-2024 Eosinophils/100 WBC (Bld) 4.0 % 0-5 [facility] Erythrocyte distribution wid th (RBC) [Ratio]Ordered By: Barbara Shook on 12-15-2024 Erythrocyte distribution width (RBC) [Entitic vol] 46.4 fL High 35.1-43.9 [facility] Erythrocyte distribution wid th ratioOrdered By: Barbara Shook on 12-15-2024 Erythrocyte distribution width (RBC) [Ratio] 12.4 % 11.6-14.6 [facility] Erythrocyte distribution wid th standard deviationOrdered By: Barbara Shook on 12-15-2024 Erythrocyte distribution width (RBC) [Ratio] 46.4 fl High 35.1-43.9 [facility] Free T3on 12-15-2024 Free T3 [Mass/Vol] 2.6 pg/mL Normal 2.18-3.98 [facility] Comment on above: Performed By: #### L 100.0100, L501.01192, L500.4050, L501.9520, L506.0400 #### [facility] [address] [place], [address] Free B3Gqbjxjk By: Barbara Monique s on 12-15-2024 Free T3 [Mass/Vol] 2.6 pg/mL 2.18-3.98 [facility] Free Triiodothyronine (T3) pg/dL 2.6 pg/mL 2.18-3.98 [facility] GFR/1.73 sq M.predicted marshall g non-blacks MDRD (S/P/Bld) [Vol rate/Area]Ordered By: Barbara Shook on 12-15-2024 Estimated GFR (MDRD) Non-Af Amer 65 >60 [facility] Comment on above: mL/min/1.73m2 CKD-EP I Creatinine Equation (2020) Glomerular filtration rate ( GFR) estimation/1.73 sq m using serum, plasma, or whole bOrdered By: Barbara Shook on 12-15-2024 GFR/1.73 sq M.predicted among non-blacks MDRD (S/P/Bld) [Vol rate/Area] 65 mL/min/{1.73_m2} >60 [facility] Comment on above: mL/min/1.73m2 CKD-EP I Creatinine Equation (2020) Hematocrit Auto (Bld) [Volum e fraction]Ordered By: Barbara Shook on 12-15-2024 Hematocrit (Bld) [Volume fraction] 41.2 % 37-47 [facility] Hemoglobin measurementOrdere d By: Barbara Shook on 12-15-2024 Hemoglobin (Bld) [Mass/Vol] 14.2 g/dL 12.0-15.0 [facility] Immature granulocytes/100 WB C Auto (Bld)Ordered By: Barbara Shook on 12-15-2024 Immature granulocytes/100 WBC (Bld) 0.300 % 0.0-0.9 [facility] Comment on above: IG% - Immature Granu locytes (promyelocytes, myelocytes and metamyelocytes) > 1% indicates that a LEFT SHIFT is Present. Laboratory - Chemistry and C hemistry - challengeOrdered By: Barbara Shook on 12-15-2024 AST [Catalytic activity/Vol] 41 U/L High <32 [facility] Lymphocytes Auto (Unsp spec) [#/Vol]Ordered By: Barbara Shook on 12-15-2024 Lymphocytes (Bld) [#/Vol] 1.02 10*3/uL 0.83-4.51 [facility] Lymphocytes/100 WBC Auto (Un sp spec)Ordered By: Barbara Shook on 12-15-2024 Lymphocytes/100 WBC (Bld) 17.6 % Low 19-41 [facility] MCV (mean corpuscular volume ) determinationOrdered By: Barbara Shook on 12-15-2024 MCV (RBC) [Entitic vol] 101.2 fL High 81-99 [facility] Mean corpuscular hemoglobin (MCH) determinationOrdered By: Barbara Shook on 12-15-2024 MCH (RBC) [Entitic mass] 34.9 pg High 27.0-32.0 [facility] Mean corpuscular hemoglobin concentration (MCHC) determinationOrdered By: Barbara Shook on 12-15-2024 MCHC (RBC) [Mass/Vol] 34.5 g/dL 32-36 [facility] Mean platelet volume determi nationOrdered By: Barbara Shook on 12-15-2024 Platelet mean volume (Bld) [Entitic vol] 10.5 fL 6.2-12.0 [facility] Monocyte percentageOrdered B y: Barbara Shook on 12-15-2024 Monocytes/100 WBC (Bld) 6.6 % 0-10 [facility] Neutrophil percentageOrdered By: Barbara Shook on 12-15-2024 Neutrophils/100 WBC (Bld) 70.6 % High 47-70 [facility] Nucleated red blood cell per centageOrdered By: Barbara Shook on 12-15-2024 Nucleated RBC/100 WBC (Bld) [Ratio] 0 % 0-5 [facility] Platelet countOrdered By: Kaitlynn Shook on 12-15-2024 Platelets (Bld) [#/Vol] 233 10*3/uL 150-450 [facility] Potassium (Unsp spec) [Mass/ Vol]Ordered By: Barbara Shook on 12-15-2024 Potassium [Moles/Vol] 4.1 mmol/L 3.3-5.1 [facility] Potassium measurement (mass/ volume)Ordered By: Barbara Shook on 12-15-2024 Potassium (Unsp spec) [Mass/Vol] 4.1 mmol/L 3.3-5.1 [facility] RBC Auto (Bld) [#/Vol]Ordere d By: Barbara Shook on 12-15-2024 RBC (Bld) [#/Vol] 4.07 10*6/uL Low 4.2-5.4 [facility] Serum creatinine measurement (mass/volume)Ordered By: Barbara Shook on 12-15-2024 Creatinine [Mass/Vol] 0.92 mg/dL 0.70-1.20 [facility] Serum globulin measurementOr dered By: Barbara Shook on 12-15-2024 Globulin (S) [Mass/Vol] 3.2 g/dL 2.2-4.2 [facility] Serum glucose measurement (m ass/volume)Ordered By: Barbara Shook on 12-15-2024 Glucose [Mass/Vol] 105 mg/dL High 70-99 [facility] Serum or plasma alanine stack otransferase (ALT) measurementOrdered By: Barbara Shook on 12-15-2024 ALT [Catalytic activity/Vol] 39 U/L High <35 [facility] Serum or plasma albumin efrain urement (mass/volume)Ordered By: Barbara Shook on 12-15-2024 Albumin [Mass/Vol] 4.1 g/dL 3.4-4.8 [facility] Serum or plasma albumin/glob ulin mass ratioOrdered By: Barbara Shook on 12-15-2024 Albumin/Globulin [Mass ratio] 1.3 {ratio} 0.9-2.4 [facility] Serum or plasma alkaline vincenzo sphatase measurementOrdered By: Barbara Shook on 12-15-2024 ALP [Catalytic activity/Vol] 88 U/L 35-104 [facility] Serum or plasma calcium efrain urement (mass/volume)Ordered By: Barbara Shook on 12-15-2024 Calcium [Mass/Vol] 9.5 mg/dL 7.6-11.0 [facility] Serum or plasma urea nitroge n measurement (mass/volume)Ordered By: Barbara Shook on 12-15-2024 Urea nitrogen [Mass/Vol] 21 mg/dL High 4-19 [facility] Sodium levelOrdered By: Barbara Shook on 12-15-2024 Sodium [Moles/Vol] 140 mmol/L 133-145 [facility] T4 Free Directon 12-15-2024 T4 FREE DIRECT 1.10 ng/dL Normal 0.76-1.46 [facility] Comment on above: Performed By: #### L 100.0100, L501.36897, L500.4050, L501.9520, L506.0400 #### [facility] [address] [place], [place], [id number] T4 freeOrdered By: Barbara lopez on 12-15-2024 Free T4 [Mass/Vol] 1.10 ng/dL 0.76-1.46 [facility] TSH DL <= 0.005 mIU/L QnOrde red By: Barbara Shook on 12-15-2024 Thyroid Stimulating Hormone (TSH) 1.310 uIU/mL 0.300-4.200 [facility] TSH Qn 1.310 uIU/mL 0.300-4.200 [facility] Thyroid Stim Hormone (TSH)on 12-15-2024 TSH 1.310 uIU/mL Normal 0.300-4.200 [facility] Comment on above: Performed By: #### L 100.0100, L501.44516, L500.4050, L501.9520, L506.0400 #### [facility] [address] [place], [address] Total proteinOrdered By: Lisa Shook on 12-15-2024 Protein [Mass/Vol] 7.3 g/dL 5.9-8.4 [facility] White blood cell (WBC) count Ordered By: Barbara Shook on 12-15-2024 WBC (Bld) [#/Vol] 5.8 10*3/uL 4.4-11.0 [facility] Absolute neutrophil countOrd ered By: Barbara Shook on 09-23-2024 Neutrophils (Bld) [#/Vol] 4.9 10*3/uL 2.0-7.7 [facility] Albumin to globulin ratioOrd ered By: Barbara Shook on 09-23-2024 Albumin/Globulin [Mass ratio] 0.9 {ratio} 0.9-2.4 [facility] Basophil percentageOrdered B y: Barbara Shook on 09-23-2024 Basophils/100 WBC (Bld) 0.6 % 0-1 [facility] Bilirubin, totalOrdered By: Barbara Shook on 09-23-2024 Bilirubin [Mass/Vol] 1.40 mg/dL High 0.20-1.[address] [facility] Comment on above: For patients on eltr ombopag therapy, use of Dimension War TBIL is not recommended. Blood urea nitrogen (BUN)/cr eatinine ratioOrdered By: Barbara Shook on 09-23-2024 Urea nitrogen/Creatinine [Mass ratio] 17.8 mg/mg 10-20 [facility] CBC W/Diff, Automatedon Absolute Lymph 0.82 X10 3/uL Low 0.83-4.51 [facility] Comment on above: Performed By: #### L 501.9520, L500.4050, L100.0100, L501.02953, L506.0400 ####[facility] [address] [place], [place], [id number] Absolute Neut 4.9 X10 3/uL Normal 2.0-7.7 [facility] Comment on above: Performed By: #### L 501.9520, L500.4050, L100.0100, L501.44317, L506.0400 ####[facility] [address] [place], [address] Basophils/100 WBC (Bld) 0.6 % Normal 0-1 [facility] Comment on above: Performed By: #### L 501.9520, L500.4050, L100.0100, L501.98603, L506.0400 ####[facility] [address] [place], [address] Eosinophils/100 WBC (Bld) 3.3 % Normal 0-5 [facility] Comment on above: Performed By: #### L 501.9520, L500.4050, L100.0100, L501.20808, L506.0400 ####[facility] [address] [place], [address] Erythrocyte distribution width (RBC) [Ratio] 13.0 % Normal 11.6-14.6 [facility] Comment on above: Performed By: #### L 501.9520, L500.4050, L100.0100, L501.32042, L506.0400 ####[facility] [address] [place], [address] Hematocrit (Bld) [Volume fraction] 38.0 % Normal 37-47 [facility] Comment on above: Performed By: #### L 501.9520, L500.4050, L100.0100, L501.34463, L506.0400 ####[facility] [address] [place], [address] Hemoglobin (Bld) [Mass/Vol] 12.8 g/dL Normal 12.0-15.0 [facility] Comment on above: Performed By: #### L 501.9520, L500.4050, L100.0100, L501.04345, L506.0400 ####[facility] [address] [place], [address] IG% 0.300 Normal 0.0-0.9 [facility] Comment on above: Result Comment: IG% - Immature Granulocytes (promyelocytes, myelocytes and metamyelocytes) > 1% indicates that a LEFT SHIFT is Present. Performed By: #### L 501.9520, L500.4050, L100.0100, L501.27157, L506.0400 ####[facility] [address] [place], [address] Lymphocytes/100 WBC (Bld) 12.8 % Low 19-41 [facility] Comment on above: Performed By: #### L 501.9520, L500.4050, L100.0100, L501.87808, L506.0400 ####[facility] [address] [place], [address] MCH (RBC) [Entitic mass] 34.5 pg High 27.0-32.0 [facility] Comment on above: Performed By: #### L 501.9520, L500.4050, L100.0100, L501.75075, L506.0400 ####[facility] [address] [place], [address] MCHC (RBC) [Mass/Vol] 33.7 g/dL Normal 32-36 [facility] Comment on above: Performed By: #### L 501.9520, L500.4050, L100.0100, L501.07097, L506.0400 ####[facility] [address] [place], [address] MCV (RBC) [Entitic vol] 102.4 fL High 81-99 [facility] Comment on above: Performed By: #### L 501.9520, L500.4050, L100.0100, L501.82079, L506.0400 ####[facility] [address] [place], [address] Monocytes/100 WBC (Bld) 6.7 % Normal 0-10 [facility] Comment on above: Performed By: #### L 501.9520, L500.4050, L100.0100, L501.93098, L506.0400 ####[facility] [address] [place], [address] Neutrophils/100 WBC (Bld) 76.3 % High 47-70 [facility] Comment on above: Performed By: #### L 501.9520, L500.4050, L100.0100, L501.65341, L506.0400 ####[facility] [address] [place], [address] Nucleated RBC (Bld) [#/Vol] 0 10*3/uL Normal 0-5 [facility] Comment on above: Performed By: #### L 501.9520, L500.4050, L100.0100, L501.12690, L506.0400 ####[facility] [address] [place], [address] Platelet mean volume (Bld) [Entitic vol] 10.5 fL Normal 6.2-12.0 [facility] Comment on above: Performed By: #### L 501.9520, L500.4050, L100.0100, L501.61930, L506.0400 ####[facility] [address] [place], [address] Platelets (Bld) [#/Vol] 217 10*3/uL Normal 150-450 [facility] Comment on above: Performed By: #### L 501.9520, L500.4050, L100.0100, L501.96018, L506.0400 ####[facility] [address] [place], [address] RBC (Bld) [#/Vol] 3.71 10*6/uL Low 4.2-5.4 [facility] Comment on above: Performed By: #### L 501.9520, L500.4050, L100.0100, L501.38636, L506.0400 ####[facility] [address] [place], [address] RDW SD 49.2 fl High 35.1-43.9 [facility] Comment on above: Performed By: #### L 501.9520, L500.4050, L100.0100, L501.76238, L506.0400 ####[facility] [address] [place], [address] WBC (Bld) [#/Vol] 6.4 10*3/uL Normal 4.4-11.0 [facility] Comment on above: Performed By: #### L 501.9520, L500.4050, L100.0100, L501.04650, L506.0400 ####[facility] [address] [place], [address] Carbon dioxide measurementOr dered By: Barbara Shook on 09-23-2024 CO2 [Moles/Vol] 28.0 mmol/L 21.0-32.0 [facility] Chloride measurementOrdered By: Barbara Shook on 09-23-2024 Chloride [Moles/Vol] 108 mmol/L High 98-[address] [facility] Comprehensive Metabolic Prof ilon 09-23-2024 Albumin [Mass/Vol] 3.5 g/dL Normal 3.2-5.0 [facility] Comment on above: Performed By: #### L 501.9520, L500.4050, L100.0100, L501.50195, L506.0400 ####[facility] [address] [place], [address] Albumin/Globulin [Mass ratio] 0.9 {ratio} Normal 0.9-2.4 [facility] Comment on above: Performed By: #### L 501.9520, L500.4050, L100.0100, L501.21489, L506.0400 ####[facility] [address] [place], [address] ALK P 95 U/L Normal 45-117 [facility] Comment on above: Performed By: #### L 501.9520, L500.4050, L100.0100, L501.99314, L506.0400 ####[facility] [address] [place], [address] ALT [Catalytic activity/Vol] 24 U/L Normal 13-56 [facility] Comment on above: Performed By: #### L 501.9520, L500.4050, L100.0100, L501.14749, L506.0400 ####[facility] [address] [place], [address] AST [Catalytic activity/Vol] 23 U/L Normal 15-37 [facility] Comment on above: Performed By: #### L 501.9520, L500.4050, L100.0100, L501.78878, L506.0400 ####[facility] [address] [place], [address] Bilirubin [Mass/Vol] 1.40 mg/dL High 0.20-1.[address] [facility] Comment on above: Result Comment: For patients on eltrombopag therapy, use of Dimension War TBIL is not recommended. Performed By: #### L 501.9520, L500.4050, L100.0100, L501.81609, L506.0400 ####[facility] [address] [place], [address] BUN/CRE 17.8 RATIO Normal 10-20 [facility] Comment on above: Performed By: #### L 501.9520, L500.4050, L100.0100, L501.37399, L506.0400 ####[facility] [address] [place], [address] CA,Total 9.4 mg/dL Normal 8.5-10.1 [facility] Comment on above: Performed By: #### L 501.9520, L500.4050, L100.0100, L501.57480, L506.0400 ####[facility] [address] [place], [address] Chloride [Moles/Vol] 108 mmol/L High 98-[address] [facility] Comment on above: Performed By: #### L 501.9520, L500.4050, L100.0100, L501.71292, L506.0400 ####[facility] [address] [place], [address] CO2 [Moles/Vol] 28.0 mmol/L Normal 21.0-32.0 [facility] Comment on above: Performed By: #### L 501.9520, L500.4050, L100.0100, L501.16248, L506.0400 ####[facility] [address] [place], [address] Creatinine [Mass/Vol] 0.96 mg/dL Normal 0.55-1.02 [facility] Comment on above: Result Comment: The validity of the calculated GFR GFRAA in patients over 70 years has not been determined. Clinical correlation is essential. Performed By: #### L 501.9520, L500.4050, L100.0100, L501.85369, L506.0400 ####[facility] [address] [place], [address] EST GFR - AA 73 mL/min Normal >60 [facility] Comment on above: Result Comment: Afri can Russian GFR Calc Performed By: #### L 501.9520, L500.4050, L100.0100, L501.84353, L506.0400 ####[facility] [address] [place], [address] GAP 5 Normal 5-15 [facility] Comment on above: Performed By: #### L 501.9520, L500.4050, L100.0100, L501.91170, L506.0400 ####[facility] [address] [place], [address] GFR/1.73 sq M.predicted among non-blacks MDRD (S/P/Bld) [Vol rate/Area] 61 mL/min/{1.73_m2} Normal >60 [facility] Comment on above: Result Comment: Non- GFR Calc Performed By: #### L 501.9520, L500.4050, L100.0100, L501.08111, L506.0400 ####[facility] [address] [place], [address] Globulin (S) [Mass/Vol] 3.8 g/dL Normal 2.2-4.2 [facility] Comment on above: Performed By: #### L 501.9520, L500.4050, L100.0100, L501.71342, L506.0400 ####[facility] [address] [place], [address] Glucose [Mass/Vol] 101 mg/dL Normal 74-106 [facility] Comment on above: Result Comment: Fast ing Glucose result from 100 to 125 mg/dL suggests IMPAIRED HOMEOSTASIS per A.D.A. criteria. Performed By: #### L 501.9520, L500.4050, L100.0100, L501.37771, L506.0400 ####[facility] [address] [place], [address] Potassium [Moles/Vol] 3.9 mmol/L Normal 3.5-5.1 [facility] Comment on above: Performed By: #### L 501.9520, L500.4050, L100.0100, L501.43029, L506.0400 ####[facility] [address] [place], [address] Sodium [Moles/Vol] 140 mmol/L Normal 136-145 [facility] Comment on above: Performed By: #### L 501.9520, L500.4050, L100.0100, L501.83216, L506.0400 ####[facility] [address] [place], [address] T PROT 7.3 g/dL Normal 6.4-8.2 [facility] Comment on above: Performed By: #### L 501.9520, L500.4050, L100.0100, L501.70918, L506.0400 ####[facility] [address] [place], [address] Urea nitrogen [Mass/Vol] 17 mg/dL Normal 7-18 [facility] Comment on above: Performed By: #### L 501.9520, L500.4050, L100.0100, L501.89008, L506.0400 ####[facility] [address] [place], [address] Direct serum free thyroxine (FT4) measurementOrdered By: Barbara Shook on 09-23-2024 Free T4 [Mass/Vol] 1.14 ng/dL 0.76-1.46 [facility] Eosinophil percentageOrdered By: Barbara Shook on 09-23-2024 Eosinophils/100 WBC (Bld) 3.3 % 0-5 [facility] Erythrocyte distribution wid th (RBC) [Ratio]Ordered By: Barbara Shook on 09-23-2024 Erythrocyte distribution width (RBC) [Entitic vol] 49.2 fL High 35.1-43.9 [facility] Erythrocyte distribution wid th ratioOrdered By: Barbara Shook on 09-23-2024 Erythrocyte distribution width (RBC) [Ratio] 13.0 % 11.6-14.6 [facility] Estimated glomerular filtrat ion rate (GFR) AmericanOrdered By: Barbara Shook on 09-23-2024 Estimated GFR (MDRD) Amer 73 mL/min >60 [facility] Comment on above: GFR Calc Free T3on 09-23-2024 Free T3 [Mass/Vol] 2.0 pg/mL Low 2.18-3.98 [facility] Comment on above: Performed By: #### L 501.9520, L500.4050, L100.0100, L501.87704, L506.0400 ####[facility] [address] [place], [address] Free R4Fyulqac By: Barbara Monique s on 09-23-2024 Free Triiodothyronine (T3) pg/dL 2.0 pg/mL Low 2.18-3.98 [facility] Glomerular filtration rate ( GFR) estimationOrdered By: Barbara Shook on 09-23-2024 Estimated GFR (MDRD) Non-Af Amer 61 mL/min >60 [facility] Comment on above: Non- GFR Calc Glucose measurementOrdered B y: Barbara Shook on 09-23-2024 Glucose [Mass/Vol] 101 mg/dL 74-106 [facility] Comment on above: Fasting Glucose resu lt from 100 to 125 mg/dL suggests IMPAIRED HOMEOSTASIS per A.D.A. criteria. Hematocrit Auto (Bld) [Volum e fraction]Ordered By: Barbara Shook on 09-23-2024 Hematocrit (Bld) [Volume fraction] 38.0 % 37-47 [facility] Hemoglobin measurementOrdere d By: Barbara Shook on 09-23-2024 Hemoglobin (Bld) [Mass/Vol] 12.8 g/dL 12.0-15.0 [facility] Immature granulocytes/100 WB C Auto (Bld)Ordered By: Barbara Shook on 09-23-2024 Immature granulocytes/100 WBC (Bld) 0.300 % 0.0-0.9 [facility] Comment on above: IG% - Immature Granu locytes (promyelocytes, myelocytes and metamyelocytes) > 1% indicates that a LEFT SHIFT is Present. Laboratory - Chemistry and C hemistry - challengeOrdered By: Barbara Shook on 09-23-2024 AST [Catalytic activity/Vol] 23 U/L 15-37 [facility] Lymphocytes Auto (Unsp spec) [#/Vol]Ordered By: Barbara Shook on 09-23-2024 Lymphocytes (Bld) [#/Vol] 0.82 10*3/uL Low 0.83-4.51 [facility] Lymphocytes/100 WBC Auto (Un sp spec)Ordered By: Barbara Shook on 09-23-2024 Lymphocytes/100 WBC (Bld) 12.8 % Low 19-41 [facility] MCV (mean corpuscular volume ) determinationOrdered By: Barbara Shook on 09-23-2024 MCV (RBC) [Entitic vol] 102.4 fL High 81-99 [facility] Mean corpuscular hemoglobin (MCH) determinationOrdered By: Barbara Shook on 09-23-2024 MCH (RBC) [Entitic mass] 34.5 pg High 27.0-32.0 [facility] Mean corpuscular hemoglobin concentration (MCHC) determinationOrdered By: Barbara Shook on 09-23-2024 MCHC (RBC) [Mass/Vol] 33.7 g/dL 32-36 [facility] Mean platelet volume determi nationOrdered By: Barbara Shook on 09-23-2024 Platelet mean volume (Bld) [Entitic vol] 10.5 fL 6.2-12.0 [facility] Monocyte percentageOrdered B y: Barbara Shook on 09-23-2024 Monocytes/100 WBC (Bld) 6.7 % 0-10 [facility] Neutrophil percentageOrdered By: Barbara Shook on 09-23-2024 Neutrophils/100 WBC (Bld) 76.3 % High 47-70 [facility] Nucleated red blood cell per centageOrdered By: Barbara Shook on 09-23-2024 Nucleated RBC/100 WBC (Bld) [Ratio] 0 % 0-5 [facility] Platelet countOrdered By: Kaitlynn Shook on 09-23-2024 Platelets (Bld) [#/Vol] 217 10*3/uL 150-450 [facility] Potassium measurementOrdered By: Barbara Shook on 09-23-2024 Potassium [Moles/Vol] 3.9 mmol/L 3.5-5.1 [facility] RBC Auto (Bld) [#/Vol]Ordere d By: Barbara Shook on 09-23-2024 RBC (Bld) [#/Vol] 3.71 10*6/uL Low 4.2-5.4 [facility] Serum anion gap measurementO rdered By: Barbara Shook on 09-23-2024 Anion gap [Moles/Vol] 5 mmol/L 5-15 [facility] Serum globulin measurementOr dered By: Barbara Shook on 09-23-2024 Globulin (S) [Mass/Vol] 3.8 g/dL 2.2-4.2 [facility] Serum or plasma alanine stack otransferase (ALT) measurementOrdered By: Barbara Shook on 09-23-2024 ALT [Catalytic activity/Vol] 24 U/L 13-56 [facility] Serum or plasma albumin efrain urement (mass/volume)Ordered By: Barbara Shook on 09-23-2024 Albumin [Mass/Vol] 3.5 g/dL 3.2-5.0 [facility] Serum or plasma alkaline vincenzo sphatase measurementOrdered By: Barbara Shook on 09-23-2024 ALP [Catalytic activity/Vol] 95 U/L 45-117 [facility] Serum or plasma calcium efrain urement (mass/volume)Ordered By: Barbara Shook on 09-23-2024 Calcium [Mass/Vol] 9.4 mg/dL 8.5-10.1 [facility] Serum or plasma creatinine m easurement (mass/volume)Ordered By: Barbara Shook on 09-23-2024 Creatinine [Mass/Vol] 0.96 mg/dL 0.55-1.02 [facility] Comment on above: The validity of the calculated GFR & GFRAA in patients over 70 years has not been determined. Clinical correlation is essential. Serum or plasma urea nitroge n measurement (mass/volume)Ordered By: Barbara Shook on 09-23-2024 Urea nitrogen [Mass/Vol] 17 mg/dL 7-18 [facility] Sodium levelOrdered By: Barbara Shook on 09-23-2024 Sodium [Moles/Vol] 140 mmol/L 136-145 [facility] T4 Free Directon 09-23-2024 T4 FREE DIRECT 1.14 ng/dL Normal 0.76-1.46 [facility] Comment on above: Performed By: #### L 501.9520, L500.4050, L100.0100, L501.46810, L506.0400 ####[facility] [address] [place], [address] TSH QnOrdered By: Barbara Shook on 09-23-2024 Thyroid Stimulating Hormone (TSH) 1.680 uIU/mL 0.358-3.740 [facility] Thyroid Stim Hormone (TSH)on 09-23-2024 TSH 1.680 uIU/mL Normal 0.358-3.740 [facility] Comment on above: Performed By: #### L 501.9520, L500.4050, L100.0100, L501.81883, L506.0400 ####[facility] [address] [place], [place], [id number] Total proteinOrdered By: Lisa Shook on 09-23-2024 Protein [Mass/Vol] 7.3 g/dL 6.4-8.2 [facility] White blood cell (WBC) count Ordered By: Barbara Shook on 09-23-2024 WBC (Bld) [#/Vol] 6.4 10*3/uL 4.4-11.0 [facility] Free T3on 06-21-2024 Free T3 [Mass/Vol] 2.5 pg/mL Normal 2.18-3.98 [facility] Comment on above: Performed By: #### L 501.9520, L501.12177, L506.0400 #### [facility] [address] [place], [address] T4 Free Directon 06-21-2024 T4 FREE DIRECT 1.11 ng/dL Normal 0.76-1.46 [facility] Comment on above: Performed By: #### L 501.9520, L501.94320, L506.0400 ####[facility] [address] [place], [address] Thyroid Stim Hormone (TSH)on 06-21-2024 TSH 0.289 uIU/mL Low 0.358-3.740 [facility] Comment on above: Performed By: #### L 501.9520, L501.35051, L506.0400 ####[facility] [address] [place], [address] Cardiology Visit Reporton Cardiology Visit Report [facility] [address] [place], [place] [address] OFFICE VISIT Date of Service: 05/25/24 MR#: [id number] Acct: [id number] Name: DAE LORD Rep #: [id number] : 1950 Provider: Dr. Roger Azar MD Age/Sex: 73/F Location: [facility] Status: Signed [facility] History of Present Illness Details: This is a 73-year-old white female who presents today for outpatient cardiovascular follow-up visit. She has a history of PSVT status post EPS/RFA as well as PACs/PVCs and PAF status post EPS/RFA (June 2020 at [facility]). She unfortunately continues to have atrial fibrillation she had considered going to see an EP physician for repeat ablation but she is decided not to. She recently had cellulitis and is recovering from that. From a cardiac standpoint, the patient is doing well. She does have occasional palpations. She denies chest pain, pressure or heaviness. She does acknowledge SOB with exertion. Worse with walking longer distances. Relieved with rest. She denies Orthopnea, and PND. She does not have bleeding issues; no blood in urine, stool or nosebleeds. She does acknowledge intermittent fatigue. She denies myalgias, or claudication. She does have bilateral lower extremity edema. She denies sudden weight gain. She does have occasional lightheadedness with quick positional changes. She denies dizziness, syncopal or near syncopal episodes, and headaches. 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 Accompanied by: Is patient in pain?: No Allergies fentanyl Allergy (Verified 05/25/24 11:11) Rash Penicillins Allergy (Verified 05/25/24 11:11) Unknown cephalexin (From Keflex) Adverse Reaction (Severe, Verified 05/25/24 11:11) Unknown clarithromycin (From Biaxin) Adverse Reaction (Severe, Verified 05/25/24 11:11) Unknown erythromycin base Adverse Reaction (Severe, Verified 05/25/24 11:11) Unknown pravastatin (From Pravachol) Adverse Reaction (Severe, Verified 05/25/24 11:11) Unknown simvastatin Adverse Reaction (Severe, Verified 05/25/24 11:11) Unknown Anesthetics - Amide Type - Select A (Anesthetics - Amide Type) Adverse Reaction (Verified 05/25/24 11:11) Other Anesthetics - Faby Type- Parabens (Anesthetics - Faby Type) Adverse Reaction (Verified 05/25/24 11:11) Other codeine Adverse Reaction (Verified 05/25/24 11:11) Nausea/Vom/Diarrhea morphine Adverse Reaction (Verified 05/25/24 11:11) Nausea/Vom/Diarrhea Medications ???Medication ???Instructions ???Recorded ???Confirmed ???Type rosuvastatin 5 mg tablet (Crestor) 5 mg PO QDAY 11/17/17 05/25/24 History levocetirizine 5 mg tablet (Xyzal) 5 mg PO DAILY 09/27/20 05/25/24 History esterified 0.25 tab PO DAILY 02/22/21 05/25/24 History estrogens-methyltestost erone 0.625 mg-1.25 mg tablet estradiol 0.5 mg tablet 0.5 mg PO DAILY 02/22/21 05/25/24 History cholecalciferol (vitamin D3) 125 125 mcg PO DAILY 12/26/21 05/25/24 History mcg (5,000 unit) capsule apixaban 5 mg tablet (Eliquis) 5 mg PO BID #180 TABLETS 11/14/23 05/25/24 Rx fluoxetine 20 mg capsule 20 mg PO QDAY 02/20/24 05/25/24 History levothyroxine 125 mcg tablet 125 mcg PO QDAY 02/20/24 05/25/24 History metoprolol succinate 25 mg 12.5 mg (1/2 x 25 mg) PO DAILY #15 03/09/24 05/25/24 Rx tablet,extended release 24 hr tabs furosemide 20 mg tablet 40 mg PO DAILY Water retention 05/25/24 05/25/24 History liothyronine 5 mcg tablet 5 mcg PO DAILY Thyroid issues 05/25/24 05/25/24 History Have you fallen in the past year?: No PFSH Medical History Cellulitis Wears glasses Wears dentures Depression Thyroid disease Gout Excessive bleeding Blackout PONV (postoperative nausea and vomiting) Shortness of breath on exertion Seasonal allergies History of echocardiogram History of irregular heartbeat History of atrial fibrillation Cardiology follow-up encounter Essential hypertension SVT (supraventricular tachycardia) Nonrheumatic aortic (valve) stenosis with insufficiency History of cardioversion ( 05/30/20) Nonrheumatic mitral (valve) prolapse Pure hypercholesterolemia Ectopic atrial tachycardia Premature atrial contraction Mitral valve prolapse Premature ventricular contractions Paroxysmal supraventricular tachycardia by electrocardiogram (ECG) Hyperlipidemia Paroxysmal atrial fibrillation Palpitations Surgical History History of hysterectomy (more content not included)... Normal [facility] BNP,B-Type NATRIURETIC PEPTI Zain 04-28-2024 Natriuretic peptide B (Bld) [Mass/Vol] 122.6 pg/mL High 0-100 [facility] Comment on above: Performed By: #### L 503.6657, L500.2500 ####[facility] [address] [place], [place], [id number] Basic Metabolic Profile (BMP )on 04-28-2024 BUN/CRE 21.5 RATIO High 10-20 [facility] Comment on above: Performed By: #### L 503.6620, L500.2500 ####[facility] [address] [place], [address] CA,Total 9.3 mg/dL Normal 8.5-10.1 [facility] Comment on above: Performed By: #### L 503.6620, L500.2500 ####[facility] [address] [place], [address] Chloride [Moles/Vol] 109 mmol/L High 98-[address] [facility] Comment on above: Performed By: #### L 503.6620, L500.2500 ####[facility] [address] [place], [address] CO2 [Moles/Vol] 27.0 mmol/L Normal 21.0-32.0 [facility] Comment on above: Performed By: #### L 503.6620, L500.2500 ####[facility] [address] [place], [address] Creatinine [Mass/Vol] 0.79 mg/dL Normal 0.55-1.02 [facility] Comment on above: Result Comment: The validity of the calculated GFR GFRAA in patients over 70 years has not been determined. Clinical correlation is essential. Performed By: #### L 503.6620, L500.2500 ####[facility] [address] [place], [address] EST GFR - AA 92 mL/min Normal >60 [facility] Comment on above: Result Comment: Afri can Russian GFR Calc Performed By: #### L 503.6620, L500.2500 ####[facility] [address] [place], [address] GAP 5 Normal 5-15 [facility] Comment on above: Performed By: #### L 503.6620, L500.2500 ####[facility] [address] [place], [address] GFR/1.73 sq M.predicted among non-blacks MDRD (S/P/Bld) [Vol rate/Area] 76 mL/min/{1.73_m2} Normal >60 [facility] Comment on above: Result Comment: Non- GFR Calc Performed By: #### L 503.6620, L500.2500 ####[facility] [address] [place], [address] Glucose [Mass/Vol] 94 mg/dL Normal 74-106 [facility] Comment on above: Performed By: #### L 503.6620, L500.2500 ####[facility] [address] [place], [address] Potassium [Moles/Vol] 4.3 mmol/L Normal 3.5-5.1 [facility] Comment on above: Performed By: #### L 503.6620, L500.2500 ####[facility] [address] [place], [address] Sodium [Moles/Vol] 141 mmol/L Normal 136-145 [facility] Comment on above: Performed By: #### L 503.6620, L500.2500 ####[facility] [address] [place], [address] Urea nitrogen [Mass/Vol] 17 mg/dL Normal 7-18 [facility] Comment on above: Performed By: #### L 503.6620, L500.2500 ####[facility] [address] [place], [address] Venous Duplex US - Sergio Extre [facility] 04-23-2024 Venous Duplex US - Sergio Extrem [facility] [address] [place] [address] Venous Duplex US - Sergio Extrem 04/23/24917 MR#: [id number] Acct: [id number] Name: DAE LORD Rep #: [id number] : 1950 73 From: Michi Bain MD Attending Dr: Dr. Barbara Shook, Status: REG CL I Ordering Dr: Barbara Shook DO Date: 04/23/24 Location: [facility] Sex: F C Admitted: Reason For Study: Bilateral edema RIGHT LEFT CFV is compressible, spontaneous, phasic, CFV is compressible, spontaneous, phasic, competent and demonstrates normal competent, and demonstrates normal augmentation. augmentation. FV is compressible, spontaneous, phasic, FV is compressible, spontaneous, phasic, competent and demonstrates normal competent and demonstrates normal augmentation. augmentation. POP V is compressible, spontaneous, phasic, POP V is compressible, spontaneous, phasic, competent and demonstrates normal competent and demonstrates normal augmentation. augmentation. T/P Trunk is compressible. T/P Trunk is compressible. PTV is compressible. PTV is compressible. RT PerV is compressible. LT PerV is compressible. SFJ is INCOMPETENT and measures 0.65 cm. SFJ is competent and measures 0.57 cm. GSV proximal thigh measures 0.38 x 0.38 cm. GSV proximal thigh measures 0.54 x 0.54 cm. GSV at knee measures 0.18 x 0.15 cm. GSV at knee measures 0.46 x 0.50 cm. GSV is competent throughout. GSV is competent throughout. SSV proximal calf is competent and measures SSV proximal calf is competent and measures 0.30 x 0.32 cm. 0.23 x 0.24 cm. Procedure This is a venous duplex using B-mode, color flow and spectral Doppler. Exam performed in department. Patient was scanned in reverse Trendelenburg position during reflux assessment. VL/Venous Duplex US - Sergio Extrem Interpretation Summary Deep veins of the lower extremities are bilaterally patent and compressible segmentally. There is no evidence of deep vein thrombosis on either side. Valvular competence appears intact within the proximal deep venous systems bilaterally. The great saphenous veins appear bilaterally patent and compressible segmentally. The right sapheno-femoral junction is incompetent . The left sapheno- femoral junction is competent . Valvular competence appears to be intact segmentally within the great saphenous veins bilaterally. Small saphenous veins are patent and competent bilaterally. Ordering Physician: Barbara Shook Referring Physician: Barbara Shook Performed By: Swetha Heller T 04/23/24 1840 Date Michi Bain MD CC: Dr. Barbara Shook DO Date Dictated: 04/23/24917 Date Transcribed: 04/23/241839 Orchestra Teacher: Signed Normal [facility] SCRN MAMM (CAD)W/KATHERINE BILATo n 04-15-2024 SCRN MAMM (CAD)W/KATHERINE BILAT [facility] Imaging Services [address] [place], [place] [id number] SCRN MAMM (CAD)W/KATHERINE BILAT MR#: [id number] Acct: [id number] Name: DAE LORD Rep #: [id number] : 1950 F 73 From: Clark loredo MD PCP: Dr. Barbara Shook DO Status: REG CLI Study: SCRN MAMM (CAD)W/KATHERINE BILAT Date of Exam: 10/08 Exam# [id number] Ordering [place]: [place] [id number] MAMMOGRAPHY - BILATERAL SCREENING REASON FOR EXAM: Female, 73 years old. Routine annual screening examination. PERTINENT HISTORY: Non-contributory. TECHNIQUE: Digital bilateral breast katherine (3D mammographic acquisition) in the CC and MLO projections. 2-D mediolateral oblique (MLO) and craniocaudad (CC) views of both breasts were obtained. CAD: Full Field Digital Mammography with Computer Added Detection was performed. COMPARISON: Comparison is made with prior study December 18, 2022 and December 14, 2021. FINDINGS: Breast Composition: There are scattered areas of fibroglandular density. There are no dominant masses or suspicious calcifications. Stable bilateral secretory calcifications. No other significant abnormalities are identified. There has been no significant change since the prior study. BI/SCRN MAMM (CAD)W/KATHERINE BILAT IMPRESSION: Stable bilateral screening mammogram. Yearly follow-up mammogram recommended. (A) ASSESSMENT CATEGORY: BIRADS Category 2: Benign. A letter regarding these results will be sent to the patient by the facility within 30 days. Approximately 10% of breast cancers are not detected by mammography. A normal mammogram should not delay biopsy of a clinically suspicious abnormality. [id number] Electronically Signed: Clark Richmond MD at 13:28 EDT Reading Location ID and State: [address] [place] [address] , Service support , CC: Dr. Barbara Shook, Orchestra Teacher: Signed Normal [facility] BNP,B-Type NATRIURETIC PEPTI Zain 04-07-2024 Natriuretic peptide B (Bld) [Mass/Vol] 154.0 pg/mL High 0-100 [facility] Comment on above: Performed By: #### L 503.6620, L501.9520, L101.9900, L501.06740, L500.4050, L506.0400, L100.0100, L501.6710 ####[facility] [address] [place], [address] CBC W/Diff, Automatedon 07- Absolute Lymph 0.94 X10 3/uL Normal 0.83-4.51 [facility] Comment on above: Performed By: #### L 503.6620, L501.9520, L101.9900, L501.29536, L500.4050, L506.0400, L100.0100, L501.6710 ####[facility] [address] [place], [address] Absolute Neut 5.1 X10 3/uL Normal 2.0-7.7 [facility] Comment on above: Performed By: #### L 503.6620, L501.9520, L101.9900, L501.06758, L500.4050, L506.0400, L100.0100, L501.6710 ####[facility] [address] [place], [address] Basophils/100 WBC (Bld) 0.6 % Normal 0-1 [facility] Comment on above: Performed By: #### L 503.6620, L501.9520, L101.9900, L501.53320, L500.4050, L506.0400, L100.0100, L501.6710 ####[facility] [address] [place], [address] Eosinophils/100 WBC (Bld) 3.1 % Normal 0-5 [facility] Comment on above: Performed By: #### L 503.6620, L501.9520, L101.9900, L501.35433, L500.4050, L506.0400, L100.0100, L501.6710 ####[facility] [address] [place], [address] Erythrocyte distribution width (RBC) [Ratio] 13.0 % Normal 11.6-14.6 [facility] Comment on above: Performed By: #### L 503.6620, L501.9520, L101.9900, L501.44808, L500.4050, L506.0400, L100.0100, L501.6710 ####[facility] [address] [place], [address] Hematocrit (Bld) [Volume fraction] 40.3 % Normal 37-47 [facility] Comment on above: Performed By: #### L 503.6620, L501.9520, L101.9900, L501.86946, L500.4050, L506.0400, L100.0100, L501.6710 ####[facility] [address] [place], [address] Hemoglobin (Bld) [Mass/Vol] 13.6 g/dL Normal 12.0-15.0 [facility] Comment on above: Performed By: #### L 503.6620, L501.9520, L101.9900, L501.82954, L500.4050, L506.0400, L100.0100, L501.6710 ####[facility] [address] [place], [address] IG% 0.300 Normal 0.0-0.9 [facility] Comment on above: Result Comment: IG% - Immature Granulocytes (promyelocytes, myelocytes and metamyelocytes) > 1% indicates that a LEFT SHIFT is Present. Performed By: #### L 503.6620, L501.9520, L101.9900, L501.84614, L500.4050, L506.0400, L100.0100, L501.6710 ####[facility] [address] [place], [address] Lymphocytes/100 WBC (Bld) 13.9 % Low 19-41 [facility] Comment on above: Performed By: #### L 503.6620, L501.9520, L101.9900, L501.61274, L500.4050, L506.0400, L100.0100, L501.6710 ####[facility] [address] [place], [address] MCH (RBC) [Entitic mass] 34.1 pg High 27.0-32.0 [facility] Comment on above: Performed By: #### L 503.6620, L501.9520, L101.9900, L501.68997, L500.4050, L506.0400, L100.0100, L501.6710 ####[facility] [address] [place], [address] MCHC (RBC) [Mass/Vol] 33.7 g/dL Normal 32-36 [facility] Comment on above: Performed By: #### L 503.6620, L501.9520, L101.9900, L501.92430, L500.4050, L506.0400, L100.0100, L501.6710 ####[facility] [address] [place], [address] MCV (RBC) [Entitic vol] 101.0 fL High 81-99 [facility] Comment on above: Performed By: #### L 503.6620, L501.9520, L101.9900, L501.03844, L500.4050, L506.0400, L100.0100, L501.6710 ####[facility] [address] [place], [address] Monocytes/100 WBC (Bld) 7.0 % Normal 0-10 [facility] Comment on above: Performed By: #### L 503.6620, L501.9520, L101.9900, L501.07432, L500.4050, L506.0400, L100.0100, L501.6710 ####[facility] [address] [place], [address] Neutrophils/100 WBC (Bld) 75.1 % High 47-70 [facility] Comment on above: Performed By: #### L 503.6620, L501.9520, L101.9900, L501.99621, L500.4050, L506.0400, L100.0100, L501.6710 ####[facility] [address] [place], [address] Nucleated RBC (Bld) [#/Vol] 0 10*3/uL Normal 0-5 [facility] Comment on above: Performed By: #### L 503.6620, L501.9520, L101.9900, L501.10904, L500.4050, L506.0400, L100.0100, L501.6710 ####[facility] [address] [place], [address] Platelet mean volume (Bld) [Entitic vol] 10.7 fL Normal 6.2-12.0 [facility] Comment on above: Performed By: #### L 503.6620, L501.9520, L101.9900, L501.19584, L500.4050, L506.0400, L100.0100, L501.6710 ####[facility] [address] [place], [address] Platelets (Bld) [#/Vol] 249 10*3/uL Normal 150-450 [facility] Comment on above: Performed By: #### L 503.6620, L501.9520, L101.9900, L501.24874, L500.4050, L506.0400, L100.0100, L501.6710 ####[facility] [address] [place], [address] RBC (Bld) [#/Vol] 3.99 10*6/uL Low 4.2-5.4 [facility] Comment on above: Performed By: #### L 503.6620, L501.9520, L101.9900, L501.99372, L500.4050, L506.0400, L100.0100, L501.6710 ####[facility] [address] [place], [place], [phone] RDW SD 48.1 fl High 35.1-43.9 [facility] Comment on above: Performed By: #### L 503.6620, L501.9520, L101.9900, L501.37576, L500.4050, L506.0400, L100.0100, L501.6710 ####[facility] [address] [place], [place], [id number] WBC (Bld) [#/Vol] 6.8 10*3/uL Normal 4.4-11.0 [facility] Comment on above: Performed By: #### L 503.6620, L501.9520, L101.9900, L501.36925, L500.4050, L506.0400, L100.0100, L501.6710 ####[facility] [address] [place], [place], [id number] CRPon 04-07-2024 C-REACTIVE PROT < 2.90 Normal 0.0-3.0 [facility] Comment on above: Result Comment: C-Re active Protein (CRP) provides useful information for the diagnosis, therapy and monitoring of inflammatory processes and associated diseases. For the evaluation of Relative Risk for Cardiovascular Disease, a High Sensitivity CRP (HSCRP) should be ordered. Performed By: #### L 503.6620, L501.9520, L101.9900, L501.48658, L500.4050, L506.0400, L100.0100, L501.6710 ####[facility] [address] [place], [place], [phone] Comprehensive Metabolic Prof ilon 04-07-2024 Albumin [Mass/Vol] 3.8 g/dL Normal 3.2-5.0 [facility] Comment on above: Performed By: #### L 503.6620, L501.9520, L101.9900, L501.32987, L500.4050, L506.0400, L100.0100, L501.6710 ####[facility] [address] [place], [address] Albumin/Globulin [Mass ratio] 1.0 {ratio} Normal 0.9-2.4 [facility] Comment on above: Performed By: #### L 503.6620, L501.9520, L101.9900, L501.97927, L500.4050, L506.0400, L100.0100, L501.6710 ####[facility] [address] [place], [address] ALK P 87 U/L Normal 45-117 [facility] Comment on above: Performed By: #### L 503.6620, L501.9520, L101.9900, L501.11353, L500.4050, L506.0400, L100.0100, L501.6710 ####[facility] [address] [place], [address] ALT [Catalytic activity/Vol] 33 U/L Normal 13-56 [facility] Comment on above: Performed By: #### L 503.6620, L501.9520, L101.9900, L501.91100, L500.4050, L506.0400, L100.0100, L501.6710 ####[facility] [address] [place], [address] AST [Catalytic activity/Vol] 26 U/L Normal 15-37 [facility] Comment on above: Performed By: #### L 503.6620, L501.9520, L101.9900, L501.68617, L500.4050, L506.0400, L100.0100, L501.6710 ####[facility] [address] [place], [address] Bilirubin [Mass/Vol] 1.10 mg/dL High 0.20-1.[address] [facility] Comment on above: Result Comment: For patients on eltrombopag therapy, use of Dimension War TBIL is not recommended. Performed By: #### L 503.6620, L501.9520, L101.9900, L501.87438, L500.4050, L506.0400, L100.0100, L501.6710 ####[facility] [address] [place], [address] BUN/CRE 18.3 RATIO Normal 10-20 [facility] Comment on above: Performed By: #### L 503.6620, L501.9520, L101.9900, L501.29753, L500.4050, L506.0400, L100.0100, L501.6710 ####[facility] [address] [place], [address] CA,Total 9.9 mg/dL Normal 8.5-10.1 [facility] Comment on above: Performed By: #### L 503.6620, L501.9520, L101.9900, L501.49463, L500.4050, L506.0400, L100.0100, L501.6710 ####[facility] [address] [place], [address] Chloride [Moles/Vol] 107 mmol/L Normal 98-[address] [facility] Comment on above: Performed By: #### L 503.6620, L501.9520, L101.9900, L501.22654, L500.4050, L506.0400, L100.0100, L501.6710 ####[facility] [address] [place], [address] CO2 [Moles/Vol] 24.0 mmol/L Normal 21.0-32.0 [facility] Comment on above: Performed By: #### L 503.6620, L501.9520, L101.9900, L501.96186, L500.4050, L506.0400, L100.0100, L501.6710 ####[facility] [address] [place], [place], [phone] Creatinine [Mass/Vol] 0.82 mg/dL Normal 0.55-1.02 [facility] Comment on above: Result Comment: The validity of the calculated GFR GFRAA in patients over 70 years has not been determined. Clinical correlation is essential. Performed By: #### L 503.6620, L501.9520, L101.9900, L501.26211, L500.4050, L506.0400, L100.0100, L501.6710 ####[facility] [address] [place], [place], [phone] EST GFR - AA 88 mL/min Normal >60 [facility] Comment on above: Result Comment: Afri can Russian GFR Calc Performed By: #### L 503.6620, L501.9520, L101.9900, L501.32637, L500.4050, L506.0400, L100.0100, L501.6710 ####[facility] [address] [place], [place], [phone] GAP 8 Normal 5-15 [facility] Comment on above: Performed By: #### L 503.6620, L501.9520, L101.9900, L501.35349, L500.4050, L506.0400, L100.0100, L501.6710 ####[facility] [address] [place], [place], [phone] GFR/1.73 sq M.predicted among non-blacks MDRD (S/P/Bld) [Vol rate/Area] 73 mL/min/{1.73_m2} Normal >60 [facility] Comment on above: Result Comment: Non- GFR Calc Performed By: #### L 503.6620, L501.9520, L101.9900, L501.17106, L500.4050, L506.0400, L100.0100, L501.6710 ####[facility] [address] [place], [address] Globulin (S) [Mass/Vol] 3.8 g/dL Normal 2.2-4.2 [facility] Comment on above: Performed By: #### L 503.6620, L501.9520, L101.9900, L501.22873, L500.4050, L506.0400, L100.0100, L501.6710 ####[facility] [address] [place], [address] Glucose [Mass/Vol] 86 mg/dL Normal 74-106 [facility] Comment on above: Performed By: #### L 503.6620, L501.9520, L101.9900, L501.32407, L500.4050, L506.0400, L100.0100, L501.6710 ####[facility] [address] [place], [address] Potassium [Moles/Vol] 3.7 mmol/L Normal 3.5-5.1 [facility] Comment on above: Performed By: #### L 503.6620, L501.9520, L101.9900, L501.89646, L500.4050, L506.0400, L100.0100, L501.6710 ####[facility] [address] [place], [address] Sodium [Moles/Vol] 139 mmol/L Normal 136-145 [facility] Comment on above: Performed By: #### L 503.6620, L501.9520, L101.9900, L501.97748, L500.4050, L506.0400, L100.0100, L501.6710 ####[facility] [address] [place], [place], [phone] T PROT 7.6 g/dL Normal 6.4-8.2 [facility] Comment on above: Performed By: #### L 503.6620, L501.9520, L101.9900, L501.84980, L500.4050, L506.0400, L100.0100, L501.6710 ####[facility] [address] [place], [place], [phone] Urea nitrogen [Mass/Vol] 15 mg/dL Normal 7-18 [facility] Comment on above: Performed By: #### L 503.6620, L501.9520, L101.9900, L501.38997, L500.4050, L506.0400, L100.0100, L501.6710 ####[facility] [address] [place], [place], [phone] Erythrocyte Sed Rateon 04-07 SED RATE 19 mm/hr Normal 0-30 [facility] Comment on above: Performed By: #### L 503.6620, L501.9520, L101.9900, L501.49114, L500.4050, L506.0400, L100.0100, L501.6710 ####[facility] [address] [place], [address] Free T3on 04-07-2024 Free T3 [Mass/Vol] 1.8 pg/mL Low 2.18-3.98 [facility] Comment on above: Performed By: #### L 503.6620, L501.9520, L101.9900, L501.94583, L500.4050, L506.0400, L100.0100, L501.6710 ####[facility] [address] [place], [address] T4 Free Directon 04-07-2024 T4 FREE DIRECT 1.22 ng/dL Normal 0.76-1.46 [facility] Comment on above: Performed By: #### L 503.6620, L501.9520, L101.9900, L501.83380, L500.4050, L506.0400, L100.0100, L501.6710 ####[facility] [address] [place], [address] Thyroid Stim Hormone (TSH)on 04-07-2024 TSH 1.60 uIU/mL Normal 0.358-3.74 [facility] Comment on above: Performed By: #### L 503.6620, L501.9520, L101.9900, L501.73090, L500.4050, L506.0400, L100.0100, L501.6710 ####[facility] [address] [place], [place], [phone] Absolute lymphocyte countOrd ered By: Barbara Shook on 12-15-2023 Lymphocytes Auto (Unsp spec) [#/Vol] 1.06 10*3/uL 0.83-4.51 [facility] Automated lymphocyte count a s percentage of total leukocytesOrdered By: Barbara Shook on 12-15-2023 Lymphocytes/100 WBC Auto (Unsp spec) 24.0 % 19-41 [facility] Basophil percentageOrdered B y: Barbara Shook on 12-15-2023 Basophils/100 WBC (Bld) 1.1 % 0-1 [facility] Bilirubin [Mass/Vol] 1.00 mg/dL 0.20-1.[address] [facility] Comment on above: For patients on eltr ombopag therapy, use of Dimension War TBIL is not recommended. Chloride [Moles/Vol] 107 mmol/L 98-[address] [facility] Cholesterol [Mass/Vol] 146 mg/dL <[address] [facility] Comment on above: <200 mg/dL Desirable 200-240 mg/dL Borderline >240 mg/dL High Risk Eosinophils/100 WBC (Bld) 4.1 % 0-5 [facility] Glucose [Mass/Vol] 105 mg/dL 74-106 [facility] Comment on above: Fasting Glucose resu lt from 100 to 125 mg/dL suggests IMPAIRED HOMEOSTASIS per A.D.A. criteria. Hemoglobin (Bld) [Mass/Vol] 13.9 g/dL 12.0-15.0 [facility] Monocytes/100 WBC (Bld) 7.7 % 0-10 [facility] Neutrophils (Bld) [#/Vol] 2.8 10*3/uL 2.0-7.7 [facility] Neutrophils/100 WBC (Bld) 62.9 % 47-70 [facility] Potassium [Moles/Vol] 4.0 mmol/L 3.5-5.1 [facility] Protein [Mass/Vol] 7.2 g/dL 6.4-8.2 [facility] Sodium [Moles/Vol] 139 mmol/L 136-145 [facility] Triglyceride [Mass/Vol] 117 mg/dL <199 [facility] Comment on above: The drugs N-Acetylcy steine and Metamizole may falsely depress this assay.Serum Triglycerides Reference Interval Normal <150 mg/dL Borderline high 150 - 199 mg/dL High 200 - 499 mg/dL Very High > or = 500 mg/dL WBC (Bld) [#/Vol] 4.4 10*3/uL 4.4-11.0 [facility] Determination of erythrocyte mean corpuscular volume (MCV)Ordered By: Barbara Shook on 12-15-2023 MCV (RBC) [Entitic vol] 100.2 fL 81-99 [facility] Erythrocyte distribution wid th ratioOrdered By: Barbara Shook on 12-15-2023 Erythrocyte distribution width (RBC) [Ratio] 12.7 % 11.6-14.6 [facility] Erythrocyte distribution wid th standard deviationOrdered By: Barbara Shook on 12-15-2023 Erythrocyte distribution width (RBC) [Entitic vol] 47.2 fL 35.1-43.9 [facility] Hematocrit Auto (Bld) [Volum e fraction]Ordered By: Barbara Shook on 12-15-2023 Hematocrit (Bld) [Volume fraction] 41.7 % 37-47 [facility] Immature granulocytes/100 WB C Auto (Bld)Ordered By: Barbara Shook on 12-15-2023 Immature granulocytes/100 WBC (Bld) 0.200 % 0.0-0.9 [facility] Comment on above: IG% - Immature Granu locytes (promyelocytes, myelocytes and metamyelocytes) > 1% indicates that a LEFT SHIFT is Present. Laboratory - Chemistry and C hemistry - challengeOrdered By: Barbara Shook on 12-15-2023 Albumin/Globulin [Mass ratio] 0.9 {ratio} 0.9-2.4 [facility] ALP [Catalytic activity/Vol] 83 U/L 45-117 [facility] ALT [Catalytic activity/Vol] 34 U/L 13-56 [facility] Cholesterol in HDL [Mass/Vol] 37 mg/dL >40 [facility] Comment on above: The drugs N-Acetylcy steine and Metamizole may falsely depress this assay. Reference Range HDL <40 mg/dL Low HDL Cholesterol HDL >or= 60 mg/dL High HDL Cholesterol Cholesterol in LDL [Mass/Vol] 86 mg/dL 0-130 [facility] CO2 [Moles/Vol] 27.0 mmol/L 21.0-32.0 [facility] Globulin (S) [Mass/Vol] 3.8 g/dL 2.2-4.2 [facility] Urea nitrogen/Creatinine [Mass ratio] 16.9 mg/mg 10-20 [facility] Laboratory - Hematology and Cell countsOrdered By: Barbara Shook on 12-15-2023 MCH (RBC) [Entitic mass] 33.4 pg 27.0-32.0 [facility] MCHC (RBC) [Mass/Vol] 33.3 g/dL 32-36 [facility] Nucleated RBC/100 WBC (Bld) [Ratio] 0 % 0-5 [facility] Platelet mean volume (Bld) [Entitic vol] 9.9 fL 6.2-12.0 [facility] Platelets (Bld) [#/Vol] 249 10*3/uL 150-450 [facility] No Panel InformationOrdered By: Barbara Shook on 12-15-2023 Estimated GFR (MDRD) Amer 95 mL/min >60 [facility] Comment on above: GFR Calc Estimated GFR (MDRD) Non-Af Amer 78 mL/min >60 [facility] Comment on above: Non- GFR Calc Free Triiodothyronine (T3) pg/dL 2.2 pg/mL 2.18-3.98 [facility] Vitamin D 25-Hydroxy 53.5 ng/mL [facility] Comment on above: Vitamin D 25(OH) Sta tus Range Deficiency <20 ng/mL (50nmol/L) Insufficiency 20 - 30 ng/mL (50 - 75 nmol/L) Sufficiency 30 - 100 ng/mL (75 - 250 nmol/L) Toxicity >100 ng/mL (>250 nmol/L) VLDL Cholesterol 23 mg/dL 5-40 [facility] RBC Auto (Bld) [#/Vol]Ordere d By: Barbara Shook on 12-15-2023 RBC (Bld) [#/Vol] 4.16 10*6/uL 4.2-5.4 [facility] Serum or plasma calcium efrain urement (mass/volume)Ordered By: Barbara Shook on 12-15-2023 Calcium [Mass/Vol] 9.1 mg/dL 8.5-10.1 [facility] Serum or plasma creatinine m easurement (mass/volume)Ordered By: Barbara Shook on 12-15-2023 Creatinine [Mass/Vol] 0.77 mg/dL 0.55-1.02 [facility] Comment on above: The validity of the calculated GFR & GFRAA in patients over 70 years has not been determined. Clinical correlation is essential. Serum or plasma thyroid stim ulating hormone (TSH) measurement (units/volume)Ordered By: Barbara Shook on 12-15-2023 TSH Qn 0.76 uIU/mL 0.358-3.74 [facility] Serum or plasma urea nitroge n measurement (mass/volume)Ordered By: Barbara Shook on 12-15-2023 Urea nitrogen [Mass/Vol] 13 mg/dL 7-18 [facility] Thin prep Papanicolaou smear with manual screeningOrdered By: Barbara Shook on 12-15-2023 Thin prep Papanicolaou smear with manual screening 3.4 g/dL 3.2-5.0 [facility] Thin prep Papanicolaou smear with manual screening 31 U/L 15-37 [facility] Thin prep Papanicolaou smear with manual screening 5 5-15 [facility] Thin prep Papanicolaou smear with manual screening 1.23 ng/dL 0.76-1.46 [facility] Absolute lymphocyte countOrd ered By: Dr. Shook on 12-11-2022 Lymphocytes Auto (Unsp spec) [#/Vol] 1.18 10*3/uL 0.83-4.51 [facility] Basophil percentageOrdered B y: Dr. Shook on 12-11-2022 Basophils/100 WBC (Bld) 0.9 % 0-1 [facility] Bilirubin [Mass/Vol] 0.70 mg/dL 0.20-1.[address] [facility] Comment on above: For patients on eltr ombopag therapy, use of Dimension War TBIL is not recommended. Chloride [Moles/Vol] 106 mmol/L 98-[address] [facility] Cholesterol [Mass/Vol] 142 mg/dL <[address] [facility] Comment on above: <200 mg/dL Desirable 200-240 mg/dL Borderline >240 mg/dL High Risk Eosinophils/100 WBC (Bld) 3.9 % 0-5 [facility] Glucose [Mass/Vol] 108 mg/dL 74-106 [facility] Comment on above: Fasting Glucose resu lt from 100 to 125 mg/dL suggests IMPAIRED HOMEOSTASIS per A.D.A. criteria. Neutrophils (Bld) [#/Vol] 2.6 10*3/uL 2.0-7.7 [facility] Neutrophils/100 WBC (Bld) 60.0 % 47-70 [facility] Potassium [Moles/Vol] 4.3 mmol/L 3.5-5.1 [facility] Protein [Mass/Vol] 7.2 g/dL 6.4-8.2 [facility] Sodium [Moles/Vol] 140 mmol/L 136-145 [facility] Triglyceride [Mass/Vol] 125 mg/dL <199 [facility] Comment on above: The drugs N-Acetylcy steine and Metamizole may falsely depress this assay.Serum Triglycerides Reference Interval Normal <150 mg/dL Borderline high 150 - 199 mg/dL High 200 - 499 mg/dL Very High > or = 500 mg/dL WBC (Bld) [#/Vol] 4.3 10*3/uL 4.4-11.0 [facility] Blood erythrocytes count (nu mber/volume)Ordered By: Dr. Shook on 12-11-2022 RBC (Bld) [#/Vol] 4.01 10*6/uL 4.2-5.4 [facility] Blood hemoglobin measurement (mass/volume)Ordered By: Dr. Shook on 12-11-2022 Hemoglobin (Bld) [Mass/Vol] 13.9 g/dL 12.0-15.0 [facility] Blood lymphocytes/100 leukoc ytesOrdered By: Dr. Shook on 12-11-2022 Lymphocytes/100 WBC (Bld) 27.2 % 19-41 [facility] Blood monocytes/100 leukocyt esOrdered By: Dr. Shook on 12-11-2022 Monocytes/100 WBC (Bld) 7.8 % 0-10 [facility] Blood platelet mean volumeOr dered By: Dr. Shook on 12-11-2022 Platelet mean volume (Bld) [Entitic vol] 10.0 fL 6.2-12.0 [facility] Determination of erythrocyte mean corpuscular volume (MCV)Ordered By: Dr. Shook on 12-11-2022 MCV (RBC) [Entitic vol] 102.7 fL 81-99 [facility] Hematocrit Auto (Bld) [Volum e fraction]Ordered By: Dr. Shook on 12-11-2022 Hematocrit (Bld) [Volume fraction] 41.2 % 37-47 [facility] - Chemistry and C hemistry - challengeOrdered By: Dr. Shook on 12-11-2022 ALP [Catalytic activity/Vol] 70 U/L 45-117 [facility] ALT [Catalytic activity/Vol] 44 U/L 13-56 [facility] CO2 [Moles/Vol] 29.0 mmol/L 21.0-32.0 [facility] Free T4 [Mass/Vol] 1.07 ng/dL 0.76-1.46 [facility] Globulin (S) [Mass/Vol] 3.7 g/dL 2.2-4.2 [facility] Urea nitrogen/Creatinine [Mass ratio] 20.1 mg/mg 10-20 [facility] Laboratory - Hematology and Cell countsOrdered By: Dr. Shook on 12-11-2022 Erythrocyte distribution width (RBC) [Entitic vol] 47.4 fL 35.1-43.9 [facility] Erythrocyte distribution width (RBC) [Ratio] 12.5 % 11.6-14.6 [facility] Immature granulocytes/100 WBC (Bld) 0.200 % 0.0-0.9 [facility] Comment on above: IG% - Immature Granu locytes (promyelocytes, myelocytes and metamyelocytes) > 1% indicates that a LEFT SHIFT is Present. MCH (RBC) [Entitic mass] 34.7 pg 27.0-32.0 [facility] Nucleated RBC/100 WBC (Bld) [Ratio] 0 % 0-5 [facility] MCHC Auto (RBC) [Mass/Vol]Or dered By: Dr. Shook on 12-11-2022 MCHC (RBC) [Mass/Vol] 33.7 g/dL 32-36 [facility] No Panel InformationOrdered By: Dr. Shook on 12-11-2022 Estimated GFR (MDRD) Amer 85 mL/min >60 [facility] Comment on above: GFR Calc Estimated GFR (MDRD) Non-Af Amer 70 mL/min >60 [facility] Comment on above: Non- GFR Calc Free Triiodothyronine (T3) pg/dL 2.2 pg/mL 2.18-3.98 [facility] Thyroid Stimulating Hormone (TSH) 1.15 uIU/mL 0.358-3.74 [facility] Vitamin D 25-Hydroxy 51.6 ng/mL [facility] Comment on above: Vitamin D 25(OH) Sta tus Range Deficiency <20 ng/mL (50nmol/L) Insufficiency 20 - 30 ng/mL (50 - 75 nmol/L) Sufficiency 30 - 100 ng/mL (75 - 250 nmol/L) Toxicity >100 ng/mL (>250 nmol/L) Platelets bldOrdered By: Dr. Shook on 12-11-2022 Platelets (Bld) [#/Vol] 219 10*3/uL 150-450 [facility] Serum or plasma albumin efrain urement (mass/volume)Ordered By: Dr. Shook on 12-11-2022 Albumin [Mass/Vol] 3.5 g/dL 3.2-5.0 [facility] Serum or plasma albumin/glob ulin mass ratioOrdered By: Dr. Shook on 12-11-2022 Albumin/Globulin [Mass ratio] 0.9 {ratio} 0.9-2.4 [facility] Serum or plasma calcium efrain urement (mass/volume)Ordered By: Dr. Shook on 12-11-2022 Calcium [Mass/Vol] 8.9 mg/dL 8.5-10.1 [facility] Serum or plasma cholesterol in HDL measurement (mass/volume)Ordered By: Dr. Shook on 12-11-2022 Cholesterol in HDL [Mass/Vol] 39 mg/dL >40 [facility] Comment on above: The drugs N-Acetylcy steine and Metamizole may falsely depress this assay. Reference Range HDL <40 mg/dL Low HDL Cholesterol HDL >or= 60 mg/dL High HDL Cholesterol Serum or plasma cholesterol in VLDL measurement (mass/volume)Ordered By: Dr. Shook on 12-11-2022 Cholesterol in VLDL [Mass/Vol] 25 mg/dL 5-40 [facility] Serum or plasma creatinine m easurement (mass/volume)Ordered By: Dr. Shook on 12-11-2022 Creatinine [Mass/Vol] 0.84 mg/dL 0.55-1.02 [facility] Comment on above: The validity of the calculated GFR & GFRAA in patients over 70 years has not been determined. Clinical correlation is essential. Serum or plasma low density lipoprotein (LDL) cholesterol measurement (mass/volume)Ordered By: Dr. Shook on 12-11-2022 Cholesterol in LDL [Mass/Vol] 78 mg/dL 0-130 [facility] Serum or plasma urea nitroge n measurement (mass/volume)Ordered By: Dr. Shook on 12-11-2022 Urea nitrogen [Mass/Vol] 17 mg/dL 7-18 [facility] Thin prep Papanicolaou smear with manual screeningOrdered By: Dr. Shook on 12-11-2022 Thin prep Papanicolaou smear with manual screening 34 U/L 15-37 [facility] Thin prep Papanicolaou smear with manual screening 5 5-15 [facility] Laboratory - Chemistry and C hemistry - challengeon 03-06-2022 Free T4 [Mass/Vol] 1.31 ng/dL 0.76-1.46 [facility] Work Phone: No Panel Informationon 03-06 Free Triiodothyronine (T3) pg/dL 2.3 pg/mL 2.18-3.98 [facility] Work Phone: Thyroid Stimulating Hormone (TSH) 0.85 uIU/mL 0.358-3.74 [facility] Work Phone: Basophil percentageon 2021 Chloride [Moles/Vol] 108 mmol/L 98-[address] [facility] Work Phone: Glucose [Mass/Vol] 98 mg/dL 74-106 [facility] Work Phone: Potassium [Moles/Vol] 4.2 mmol/L 3.5-5.1 [facility] Work Phone: [phone] Sodium [Moles/Vol] 141 mmol/L 136-145 [facility] Work Phone: Laboratory - Chemistry and C hemistry - challengeon 12-26-2021 CO2 [Moles/Vol] 26.0 mmol/L 21.0-32.0 [facility] Work Phone: Urea nitrogen/Creatinine [Mass ratio] 14.9 mg/mg 10-20 [facility] Work Phone: No Panel Informationon 12-26 Estimated GFR (MDRD) Amer 82 mL/min >60 [facility] Work Phone: Comment on above: GFR Calc Estimated GFR (MDRD) Non-Af Amer 68 mL/min >60 [facility] Work Phone: Comment on above: Non- GFR Calc Serum or plasma calcium efrain urement (mass/volume)on 12-26-2021 Calcium [Mass/Vol] 9.6 mg/dL 8.5-10.1 [facility] Work Phone: Serum or plasma creatinine m easurement (mass/volume)on 12-26-2021 Creatinine [Mass/Vol] 0.87 mg/dL 0.55-1.02 [facility] Work Phone: Comment on above: The validity of the calculated GFR & GFRAA in patients over 70 years has not been determined. Clinical correlation is essential. Serum or plasma urea nitroge n measurement (mass/volume)on 12-26-2021 Urea nitrogen [Mass/Vol] 13 mg/dL 7-18 [facility] Work Phone: Thin prep Papanicolaou smear with manual screeningon 12-26-2021 Thin prep Papanicolaou smear with manual screening 7 5-15 [facility] Work Phone: Vital Signs Date Time Vital Sign Value Performing Clinician Faci lity 01-31-2025 15:17-0400 Body height 167.[address] Barbara Shook DO Work Phone: [facility] 01-31-2025 15:17-0400 Body mass index (BMI) [Ratio] 42.6 kg/m2 Dr. Barbara Shook DO Work Phone: [facility] 01-31-2025 15:17-0400 Body weight 119.[address] Barbara Shook DO Work Phone: [facility] 01-31-2025 15:17-0400 Diastolic blood pressure 72 mm[Hg] Dr. Barbara Shook DO Work Phone: [facility] 01-31-2025 15:17-0400 Heart rate 74 /min Dr. Barbara Shook DO Work Phone: [facility] 01-31-2025 15:17-0400 Respiratory rate 18 /min Dr. Barbara Shook DO Work Phone: [facility] 01-31-2025 15:17-0400 Systolic blood pressure 169 mm[Hg] Dr. Barbara Shook DO Work Phone: [facility] 11-14-2023 09:58-0500 Body height 167.[address] Barbara Shook Work Phone: [facility] 11-14-2023 09:58-0500 Body mass index (BMI) [Ratio] 41.8 kg/m2 Dr. Barbara Shook Work Phone: [facility] 11-14-2023 09:58-0500 Body weight 117.[address] Barbara Shook Work Phone: [facility] 11-14-2023 09:58-0500 Diastolic blood pressure 80 mm[Hg] Dr. Barbara Shook Work Phone: [facility] 11-14-2023 09:58-0500 Heart rate 94 /min Dr. Barbara Shook Work Phone: [facility] 11-14-2023 09:58-0500 Respiratory rate 22 /min Dr. Barbara Shook Work Phone: [facility] 11-14-2023 09:58-0500 SaO2% (BldA) [Mass fraction] 97 % Dr. Barbara Shook Work Phone: [facility] 11-14-2023 09:58-0500 Systolic blood pressure 137 mm[Hg] Dr. Barbara Shook Work Phone: [facility] 08-14-2023 11:02-0500 Body height 167.[address] Barbara Shook Work Phone: [facility] 08-14-2023 11:00-0500 Body mass index (BMI) [Ratio] 41.4 kg/m2 Dr. Barbara Shook Work Phone: [facility] 08-14-2023 11:00-0500 Body weight 116.[address] Barbara Shook Work Phone: [facility] 08-14-2023 11:00-0500 Diastolic blood pressure 93 mm[Hg] Dr. Barbara Shook Work Phone: [facility] 08-14-2023 11:00-0500 Heart rate 94 /min Dr. Barbara Shook Work Phone: [facility] 08-14-2023 11:00-0500 Respiratory rate 20 /min Dr. Barbara Shook Work Phone: [facility] 08-14-2023 11:00-0500 SaO2% (BldA) [Mass fraction] 96 % Dr. Barbara Shook Work Phone: [facility] 08-14-2023 11:00-0500 Systolic blood pressure 148 mm[Hg] Dr. Barbara Shook Work Phone: [facility] 04-08-2023 10:24-0400 Body height 167.[address] Barbara Shook Work Phone: [facility] 04-08-2023 10:24-0400 Body mass index (BMI) [Ratio] 42.7 kg/m2 Dr. Barbara Shook Work Phone: [facility] 04-08-2023 10:24-0400 Body weight 120.[address] Barbara Shook Work Phone: [facility] 04-08-2023 10:24-0400 Diastolic blood pressure 75 mm[Hg] Dr. Barbara Shook Work Phone: [facility] 04-08-2023 10:24-0400 Heart rate 87 /min Dr. Barbara Shook Work Phone: [facility] 04-08-2023 10:24-0400 Respiratory rate 18 /min Dr. Barbara Shook Work Phone: [facility] 04-08-2023 10:24-0400 SaO2% (BldA) [Mass fraction] 95 % Dr. Barbara Shook Work Phone: [facility] 04-08-2023 10:24-0400 Systolic blood pressure 142 mm[Hg] Dr. Barbara Shook Work Phone: [facility] 12-26-2021 12:51-0400 Body height 167.[address] Barbara Shook Work Phone: [facility] Work Phone: 12-26-2021 12:51-0400 Body mass index (BMI) [Ratio] 42.1 kg/m2 Dr. Barbara Shook Work Phone: [facility] Work Phone: 12-26-2021 12:51-0400 Body weight 118.[address] Barbara Shook Work Phone: [facility] Work Phone: 12-26-2021 12:51-0400 Diastolic blood pressure 68 mm[Hg] Dr. Barbara Shook Work Phone: [facility] Work Phone: 12-26-2021 12:51-0400 Heart rate 68 /min Dr. Barbara Shook Work Phone: [facility] Work Phone: 12-26-2021 12:51-0400 Respiratory rate 18 /min Dr. Barbara Shook Work Phone: [facility] Work Phone: 12-26-2021 12:51-0400 SaO2% (BldA) [Mass fraction] 95 % Dr. Barbara Shook Work Phone: [facility] Work Phone: 12-26-2021 12:51-0400 Systolic blood pressure 134 mm[Hg] Dr. Barbara Shook Work Phone: [facility] Work Phone: 08-27-2021 11:59-0500 Body height 167.[address] Barbara Shook Work Phone: [facility] Work Phone: 08-27-2021 11:59-0500 Body mass index (BMI) [Ratio] 42.6 kg/m2 Dr. Barbara Shook Work Phone: [facility] Work Phone: 08-27-2021 11:59-0500 Body weight 119.[address] Barbara Shook Work Phone: [facility] Work Phone: 08-27-2021 11:59-0500 Diastolic blood pressure 74 mm[Hg] Dr. Barbara Shook Work Phone: [facility] Work Phone: 08-27-2021 11:59-0500 Heart rate 78 /min Dr. Barbara Shook Work Phone: [facility] Work Phone: 08-27-2021 11:59-0500 Respiratory rate 18 /min Dr. Barbara Shook Work Phone: [facility] Work Phone: 08-27-2021 11:59-0500 SaO2% (BldA) [Mass fraction] 96 % Dr. Barbara Shook Work Phone: [facility] Work Phone: 08-27-2021 11:59-0500 Systolic blood pressure 141 mm[Hg] Dr. Barbara Shook Work Phone: [facility] Work Phone: Encounters Encounter Date Encounter Type Care Provider Facility Start: 03-10-2025 ambulatory Barbara Shook Facility:[facility] Start: 01-31-2025 End: 01-31-2025 Patient encounter procedure Marco YOU[facility] Work Phone: Start: 01-31-2025 End: 01-31-[address] Barbara Shook DO Work Phone: [facility] Work Phone: Start: 12-15-2024 End: 12-15-[address] Barbara Shook DO Work Phone: [facility] Work Phone: Start: 12-15-2024 End: 12-15-[address] Barbara Shook DO -[facility] Start: 12-15-2024 End: 12-15-2024 ambulatory Barbara Malys Facility:[facility] Start: 09-23-2024 End: 09-23-[address] Barbara Shook DO -Laboratory, [place] Work Phone: Start: 09-23-2024 End: 09-23-2024 ambulatory Barbara Malys Facility:[facility] Start: 06-21-2024 End: 06-21-2024 ambulatory Barbara Malys Facility:[facility] Start: 05-25-2024 End: 05-25-2024 ambulatory Ney Doe Facility:[facility] Start: 04-28-2024 End: 04-28-2024 ambulatory Barbara Malys Facility:[facility] Start: 04-23-2024 End: 04-23-2024 ambulatory Barbara Malys Facility:[facility] Start: 04-15-2024 End: 04-15-2024 ambulatory Barbara Malys Facility:[facility] Start: 04-07-2024 End: 04-07-2024 ambulatory Barbara Malys Facility:[facility] Start: 12-15-2023 End: 12-15-[address] Barbara Shook Work Phone: [facility] Work Phone: Start: 12-15-2023 End: 12-15-[address] Barbara Shook Work Phone: [facility] Start: 11-14-2023 End: 11-14-[address] Barbara Shoko Work Phone: [facility] Work Phone: Start: 09-22-2023 Non-patient / Non-visit Dr. Kaitlynn Shook Work Phone: [facility] Work Phone: Start: 09-22-2023 Non-patient / Non-visit Dr. Kaitlynn Shook Work Phone: [facility] Start: 09-22-2023 End: 09-22-[address] Barbara Shook Work Phone: [facility] Work Phone: Start: 09-22-2023 End: 09-22-[address] [facility]: Start: 08-14-2023 End: 08-14-[address] Barbara Shook Work Phone: [facility] Work Phone: Start: 06-09-2023 End: 06-09-[address] Barbara Shook Work Phone: [facility] Work Phone: Start: 06-09-2023 End: 06-09-[address] Barbara Shook Work Phone: [facility]-Sleep Lab Work Phone: Start: 04-14-2023 Non-patient / Non-visit Dr. Kaitlynn Shook Work Phone: [facility] Work Phone: Start: 04-14-[address] [facility]anueva [facility] Work [facility]: Start: 04-08-2023 End: 04-08-[address] [facility] Work Phone: Start: 12-18-2022 End: 12-18-2022 ambulatory [facility] Work Phone: Start: 12-18-2022 End: 12-18-2022 Patient encounter procedure [facility]-Outpatient [facility] Start: 12-11-2022 End: 12-11-2022 ambulatory [facility] Work Phone: Start: 12-11-2022 End: 12-11-2022 Patient encounter procedure [facility]-Laboratory, [facility] Start: 06-10-2022 End: 06-10-2022 ambulatory [facility] Work Phone: Start: 06-10-2022 End: 06-10-2022 [facility] Start: 03-06-2022 End: 03-06-2022 [facility] encounter [facility] Start: 12-26-2021 End: 12-26-[address] Barbara Shook Work Phone: [facility]-Laboratory Start: 12-14-2021 End: 12-14-[address] Barbara Shook Work Phone: [facility]-Outpatient Breast [facility] Start: 08-27-2021 End: 08-27-[address] Barbara Shook Work Phone: [facility] Procedures Date Procedure Procedure Detail Performing Clinician Start: 12-18-2022 Screening mammography Start: 06-10-2022 X-ray of lumbosacral spine Start: 12-14-2021 Screening mammography Riddhi Shook Work Phone: Plan of Treatment Date Care Activity Detail Author Start: 01-31-2025 Patient referral [facility] Work Phone: Patient referral [facility] Work Phone: [facility] Payers Date Payer Category Payer Self-pay [id number] 2023 Unknown [id number] 2012 Unknown [id number] Medicare [id number] 516 [id number] Unknown [id number] 2.16.8 [id number] Unknown [id number] 2.16.8 [id number] Unknown [id number] 2.16.8 [id number] Unknown [id number] 2.16.8 [id number] Unknown [id number] 2.16.8 [id number] Unknown [id number] 2.16.8 [id number] Unknown [id number] 2.16.8 [id number] Unknown [id number] 2.16.8 [id number] Unknown [id number] 2.16.8 [id number] Unknown [id number] 2.16.8 [id number] Social History Date Type Detail Facility Start: 08-27-2021 End: 11-14-2023 Tobacco smoking status IDIS Unknown if ever smoked [facility] Start: 1950 Sex Assigned At Female [facility] Start: 01-22-2024 Tobacco smoking stat [facility] Ex-smoker (finding) [facility] Start: 12-21-2024 Sex Female (finding) [facility] Evaluation note Note Date & Type Note Facility Evaluation note Diagnosis Onset Date Elevated blood pressure read ing in office without diagnosis of hypertension acute Paroxysmal atrial fibrillation chronic Pure hypercholesterolemia [facility] Work Phone: Evaluation note Note Date & Type Note Facility Evaluation note Diagnosis Onset Date Essential hypertension chron ic Paroxysmal atrial fibrillation chronic Pure hypercholesterolemia [facility] Work Phone: Evaluation note Note Date & Type Note Facility Evaluation note No assessment information availa [facility] Work Phone: Evaluation note Note Date & Type Note Facility Evaluation note Diagnosis Onset Date Essential hypertension chron ic Palpitations chronic Paroxysmal atrial fibrillation chronic Pure hypercholesterolemia [facility] Work Phone: Evaluation note Note Date & Type Note Facility Evaluation note Diagnosis Onset Date Resolution Atrial fibrillation acute January 132024 3:09pm ALEGRIA (dyspnea on exertion) acute January 31, 2025 3:09pm Nonrheumatic mitral (valve) prolapse acute January 31, 2025 3:09pm Essential hypertension chronic Ma 2024 3:09pm Nonrheumatic aortic (valve) stenosis with insufficiency chronic January 31, 2025 3:09pm Pure hypercholesterolemia chronic January 31, 2025 3:09pm History of cardiac radiofrequency ablation June, resolved January 31, 2025 3:09pm [facility] Work Phone: Hospital Discharge instructions Note Date & Type Note Facility Hospital Discharge instructions Ambulatory OrdersElectrophysiology Location: None Selected [facility] Work Phone: Reason for referral (narrative) Note Date & Type Note Facility Reason for referral (narrative) No reason for referral information available [facility] Work Phone: Chief Complaint and Reason for Visit Chief Complaint 6 m fu SCREENING Reason for Visit Elevated blood press ure reading in office without diagnosis of hypertension Paroxysmal atrial fibrillation Pure hypercholesterolemia Chief Complaint SCREENING 3 M FU Reason for Visit Essential hypertensi on Paroxysmal atrial fibrillation Pure hypercholesterolemia Chief Complaint LABS- THYROID Chief Complaint SCREENING Chief Complaint 1 y fu PREV PFM PT DOE-PALPITATIONS 30 DAY MONITOR Hypersomnia Reason for Visit Essential hypertensi on Palpitations Paroxysmal atrial fibrillation Pure hypercholesterolemia Chief Complaint Hypersomnia 4 M FU Paroxysmal atrial fibrillation Amb Documentation Reason for Visit Essential hypertensi on Paroxysmal atrial fibrillation Pure hypercholesterolemia Chief Complaint Paroxysmal atrial fi brillation Amb Documentation 3 m fu Reason for Visit Essential hypertensi on Paroxysmal atrial fibrillation Pure hypercholesterolemia Chief Complaint Admit Date 8 M FU January 31, 2025 3:09p m Reason for Visit Admit Date Atrial fibrillation January 31, 2025 3:09p m ALEGRIA (dyspnea on exertion) January 31, 2025 3:09pm Nonrheumatic mitral (valve) prolapse January 31, 2025 3:09pm Essential hypertension January 31, 2025 3: 09pm Nonrheumatic aortic (valve) stenosis wit h insufficiency January 31, 2025 3:09pm Pure hypercholesterolemia January 31, 2025 3:09pm History of cardiac radiofrequency ablati on January 31, 2025 3:09pm Family History No Family History Records Found Relationship Condition Age at Onset Recorded Date/T lanette Not Specified Family history of hypertension Unknown Family history of hyperlipidemia Unknown mother Coronary artery disease Unknown Myocardial infarction Unknown Chronic obstructive pulmonary disease Unk nown Advance Directives No Advanced Directives Records Found Advance Directive Response Recorded Date/ Time Advance Directives No May 11:00am Living Will No August 07 12:23pm Power of Slide Attendant No August 07, 2021 12:23pm Advance Directive Response Recorded Date/ Time Advance Directives No May 10:00am Living Will No August 07, 021 11:23am Power of Slide Attendant No August 07, 2021 11:23am Advance Directive Response Recorded Date/ Time Advance Directives No May 11:00am Summary Purpose Additional Source Comments Goals (unrecognized section and content) Goals may be documented in a n alternate sectionGoals may be documented in an alternate sectionGoals may be documented in an alternate sectionGoals may be documented in an alternate sectionGoals may be documented in an alternate sectionGoals may be documented in an alternate sectionGoals may be documented in an alternate sectionGoals may be documented in an alternate sectionGoals may be documented in an alternate sectionGoals may be documented in an alternate section Care Teams (unrecognized sec tion and content) Team Status: Active Member Role Status Dates Dr. Barbara Shook DO Family Provider Active Dr. Barbara Shook DO Primary Care Provider Active Team Status: Inactive Member Role Status Dates Dr. Barbara Shook DO Primary Care Provide r, Attending Provider, Referring Provider Active Team Status: Inactive Member Role Status Dates Dr. Barbara Shook DO Primary Care Provider, Attending P rovider Active Team Status: Inactive Member Role Status Dates Dr. Barbara Shook DO Primary Care Provider, Referring P rovider Active Rocío Collins [employer], [employer]-C Attending Provider Active Team Status: Active Member Role Status Dates Dr. Barbara Shook DO Primary Care Provider Active Dr. Roger Azar MD Attending Provider, Referring Pro vider Active Team Status: Active Member Role Status Dates Dr. Barbara Shook DO Primary Care Provider Active Rocío Collins [employer], [employer]-C Attending Provider, Referring P rovider Active Team Status: Inactive Member Role Status Dates Dr. Barbara Shook DO Primary Care Provider Active Gladys Gale PA, PA Attending Provider, Referr ing Provider Active Team Status: Active Member Role Status Dates Dr. Barbara Shook DO Primary Care Provider Active Rocío Collins [employer], [employer]-C Attending Provider Active Team Status: Active Member Role Status Dates Dr. Barbara Shook DO Primary Care Provider Active Dr. Roger Azar MD Attending Provider Active Team Status: Inactive Member Role Status Dates Dr. Barbara Shook DO Primary Care Provider Active Rocío Collins [employer], [employer]-C Attending Provider, Referring P rovider Active Team Status: Inactive Member Role Status Dates Dr. Barbara Shook DO Primary Care Provider Active Start: September 23, 2024 End: September 23, 2024 Dr. Barbara Shook DO Attending Provider Active St art: September 23, 2024 End: September 23, 2024 Dr. Barbara Shook DO Referring Provider Active St art: September 23, 2024 End: September 23, 2024 Team Status: Inactive Member Role Status Dates Dr. Barbara Shook DO Primary Care Provider Active Start: December 15, 2024 End: December 15, 2024 Dr. Barbara Shook DO Attending Provider Active St art: December 15, 2024 End: December 15, 2024 Team Status: Active Member Role Status Dates Dr. Barbara Shook DO Primary Care Provider Active Team Status: Inactive Member Role Status Dates Dr. Barbara Shook DO Primary Care Provider Active Start: January 31, 2025 End: January 31, 2025 Dr. Barbara Shook DO Referring Provider Active St art: January 31, 2025 End: January 31, 2025 Marco Dobbs [employer], [employer] Attending Provider Active S tart: January 31, 2025 End: January 31, 2025 INFORMATION SOURCE (unrecogn ized section and content) DATE CREATED AUTHOR 02/11/2025 [facility] DATE CREATED AUTHOR AUTHOR'S ORGANIZ ATION 03/10/2025 [facility] FOR RECORDS PERTAINING TO PATIENTS WHO ARE [...] BE BASED ON THE PRIMARY CLINICAL RECORDS. [employer] provides no warranty or guarantee of the accuracy or completeness of information in this document.
== END | disposition home or self-care (01) ==
LOC: CVS 12:32
PROVIDERS: PCP Family Medicine; Referring Provider Nurse Practitioner Family; Visit Provider Nurse Practitioner Family
DX: R06.09 Other forms of dyspnea (principal); I48.91 Unspecified atrial fibrillation; I35.2 Nonrheumatic aortic (valve) stenosis with insufficiency; I34.1 Nonrheumatic mitral (valve) prolapse; Z98.890 Other specified postprocedural states
CPT/HCPCS: 93306

== ENCOUNTER → 2025-05-19 | Outpatient (CLI) | payer MEDICARE, SELFPAY ==
[2025-05-19 12:36] LABS: Hematocrit 38.5 % (37-47); Hemoglobin 13.4 g/dL (12.0-15.0); Immature Granulocytes Count 0.010 X10^3/uL (0.0-0.0); Mean Corp Hgb Conc 34.8 g/dL (32-36); Mean Corpuscular Volume 99.5 fL (81-99); Mean Platelet Vol. 10.5 fl (6.2-12.0); NRBC Flagged by Analyzer 0 % (0-5); Platelet Count 215 K/mm3 (150-450); RBC Distribution Width CV 12.9 % (11.6-14.6); RBC Distribution Width SD 46.9 fl (35.1-43.9); Red Blood Count 3.87 M/mm3 (4.2-5.4); White Blood Count 4.2 K/mm3 (4.4-11.0)
[2025-05-19 13:31] LABS: AST(SGOT) 35 U/L (<=31); Alanine Aminotransfer ALT/SGPT 34 U/L (<=34); Albumin, Serum 4.0 g/dL (3.4-4.8); Alkaline Phosphatase 73 U/L (35-104); Anion Gap 11 (5-15); BUN 18 mg/dL (4-19); BUN/Creat Ratio 22.5 RATIO (10-20); Calcium,Total 9.3 mg/dL (7.6-11.0); Carbon Dioxide 23.8 mmol/L (21.0-32.0); Chloride 104 mmol/L (98-108); Free T3 2.7 pg/mL (2.18-3.98); Globulin 3.0 g/dL (2.2-4.2); Glucose 110 mg/dL (70-99); Potassium 4.0 mmol/L (3.3-5.1)
[2025-05-20 04:07] LABS: PROGESTERONE 0.2 ng/mL (.)
[2025-05-24 10:09] LABS: Testosterone, % Free 1.21 % (0.50-2.80); Testosterone, Free 0.39 ng/dL (0.10-0.85)
== END | disposition home or self-care (01) ==
LOC: MTLAB 10:02
PROVIDERS: PCP Family Medicine; Referring Provider Family Medicine; Visit Provider Family Medicine
DX: E03.9 Hypothyroidism, unspecified (principal); I10 Essential (primary) hypertension; Z51.81 Encounter for therapeutic drug level monitoring
CPT/HCPCS: 36415; 80053; 82670; 84144; 84402; 84403; 84439; 84443; 84481; 85025